=== PATIENT | female | born 1965 | race Caucasian/White ===

== ENCOUNTER → 2018-04-14 12:26 | Outpatient (CLI) | payer MEDICARE, OTHER, SELFPAY ==
--- NOTE | 2018-04-14 | DI.MG.S_ITS ---
BILATERAL DIGITAL SCREENING MAMMOGRAM 3D/2D WITH CAD: 04/14/2018 CLINICAL: Routine screening. Comparison is made to exams dated: 12/10/2016 mammogram, 11/13/2014 mammogram, and 05/13/2009 mammogram - [facility]. The tissue of both breasts is heterogeneously dense. This may lower the sensitivity of mammography. Current study was also evaluated with a Computer Aided Detection (CAD) system. No significant masses, calcifications, or other findings are seen in either breast. There has been no significant interval change. IMPRESSION: NEGATIVE There is no mammographic evidence of malignancy. A 1 year screening mammogram is recommended. This exam was interpreted at Station ID: [id number]. NOTE: For mammograms, a report in lay terms will be sent to the patient. Approximately 15% of breast malignancies will not be visualized mammographically. In the management of a palpable breast mass, a negative mammogram must not discourage biopsy of a clinically suspicious lesion. Electronically Signed By: Winnie jaeger/joseph:04/14/2018 12:56:11 letter sent: Normal Exam ACR BI-RADS Category 1: Negative [id number]
== END ==
PROVIDERS: PCP Physician Assistant; Visit Provider Physician Assistant
DX: Z12.31 Encounter for screening mammogram for malignant neoplasm of breast (principal)
CPT/HCPCS: 77063; 77067

== ENCOUNTER → 2018-04-19 11:12 | Outpatient (CLI) | payer MEDICARE, OTHER, SELFPAY ==
[2018-04-19 12:16] LABS: Hematocrit 41.6 % (36-46); Hemoglobin 14.2 g/dL (12.0-16.0); Mean Corpuscular HGB Conc 34.1 % (30-36); Platelet Count 317 X10^3/uL (150-400); Red Blood Cell Count 4.72 X10^6/uL (4.0-5.2); Red Cell Distribution Width 14.3 % (11.6-14.8); White Blood Cell Count 5.3 X10^3/uL (4.5-11.0)
[2018-04-19 12:34] LABS: Morphology Comment Normal Morphology; Neutrophils Absolute Manual 2597 /uL (3000-5900); Total Cells Counted 100
[2018-04-19 12:55] LABS: C-Reactive Protein Quant 1.7 mg/dL (<1.0); Rheumatoid Factor < 8.6 IU/mL (<12.0); Uric Acid 6.7 mg/dL (2.5-6.2)
[2018-04-21 14:17] LABS: Lyme SCREEN w/ Reflex IgG IgM < 0.90 (< 0.90)
[2018-04-21 14:22] LABS: Homocysteine 10.5 umol/L (< 10.4)
[2018-04-21 14:54] LABS: HLA B27 NEGATIVE (Negative)
[2018-04-21 22:51] LABS: ANA Screen NEGATIVE (Negative); DNA Antibody Crithidia IFA NEGATIVE (Negative); Rheumatoid Factor <14 IU/mL; Sjogren Antiboday SS-A <1.0 NEG AI (<1.0 NEGATIVE); Sjogren Antiboday SS-B <1.0 NEG AI (<1.0 NEGATIVE); Sm Antibody <1.0 NEG AI (<1.0 NEGATIVE); Sm/RNP Antibody <1.0 NEG AI (<1.0 NEGATIVE)
== END ==
PROVIDERS: PCP Physician Assistant; Visit Provider Physician Assistant
DX: M19.90 Unspecified osteoarthritis, unspecified site (principal)
CPT/HCPCS: 36415; 83090; 84550; 85025; 86038; 86140; 86430; 86618; 86812

== ENCOUNTER → 2018-05-10 09:07 | Outpatient (CLI) | payer MEDICARE, OTHER, SELFPAY ==
--- NOTE | 2018-05-10 09:21 | DI.RAD.S_ITS ---
PROCEDURE: XR ELBOW LT MIN 3V INDICATIONS: elbow pain no trauma TECHNIQUE: 3 views of the elbow were acquired. COMPARISON: None. FINDINGS: Bones: No fractures or dislocations. No suspicious bony lesions. Soft tissues: No elbow joint effusion. No suspicious soft tissue calcifications. IMPRESSION: Normal elbow Dictated by: Ricky Carrillo M.D. on 05/10/2018 at 9:54 Approved by: Ricky Carrillo M.D. on 05/10/2018 at 9:54
--- NOTE | 2018-05-10 09:21 | DI.RAD.S_ITS ---
PROCEDURE: XR SHOULDER RT MIN 2V INDICATIONS: shoulder pain no trauma TECHNIQUE: 3 views of the shoulder were acquired. COMPARISON: None. FINDINGS: Bones: No fractures or dislocations. No suspicious bony lesions. Visualized ribs appear intact. Degenerative a.c. joint disease with small inferior bone spur distal clavicle. Glenohumeral joint appears maintained. Soft tissues: No suspicious soft tissue calcifications. IMPRESSION: 1. No acute bony abnormality. 2. Degenerative acromioclavicular joint disease. Dictated by: Ricky Carrillo M.D. on 05/10/2018 at 9:53 Approved by: Ricky Carrillo M.D. on 05/10/2018 at 9:54
--- NOTE | 2018-05-10 09:21 | DI.RAD.S_ITS ---
PROCEDURE: XR FINGER RT MIN 2V INDICATIONS: finger pain no trauma TECHNIQUE: AP hand, 2 views of the middle finger(s) acquired. COMPARISON: None. FINDINGS: Bones: No fractures or dislocations. No suspicious bony lesions. Soft tissues: No suspicious soft tissue calcifications. IMPRESSION: Normal finger Dictated by: Ricky Carrillo M.D. on 05/10/2018 at 9:52 Approved by: Ricky Carrillo M.D. on 05/10/2018 at 9:53
[2018-05-10 09:53] LABS: Erythrocyte Sedimentation Rate 20 MM/HR (0-20)
[2018-05-10 10:09] LABS: Rheumatoid Factor < 8.6 IU/mL (<12.0)
== END ==
PROVIDERS: PCP Family Medicine; Visit Provider Family Medicine
DX: M25.50 Pain in unspecified joint (principal); M25.522 Pain in left elbow; M79.646 Pain in unspecified finger(s); M25.511 Pain in right shoulder
CPT/HCPCS: 36415; 73030; 73080; 73140; 85651; 86430

== ENCOUNTER → 2019-10-03 07:40 | Outpatient (CLI) | payer MEDICARE, OTHER, SELFPAY ==
[2019-10-03 09:31] LABS: Cholesterol 208 mg/dL (140-199); HDL Cholesterol 44 mg/dL (40-60); LDL Cholesterol Calculated 150 mg/dL (<100); Triglycerides 69 mg/dL (35-150)
== END ==
PROVIDERS: Visit Provider Family Medicine
DX: Z13.220 Encounter for screening for lipoid disorders (principal)
CPT/HCPCS: 36415; 80061

== ENCOUNTER → 2019-11-26 11:42 | Outpatient (CLI) | payer MEDICARE, OTHER, SELFPAY ==
--- NOTE | 2019-11-26 | DI.MG.S_ITS ---
BILATERAL DIGITAL SCREENING MAMMOGRAM 3D/2D WITH CAD: 11/26/2019 CLINICAL: Routine screening. Comparison is made to exams dated: 04/14/2018 mammogram - [facility], 12/10/2016 mammogram, and 11/13/2014 mammogram - [facility]. The tissue of both breasts is heterogeneously dense. This may lower the sensitivity of mammography. Current study was also evaluated with a Computer Aided Detection (CAD) system. No significant masses, calcifications, or other findings are seen in either breast. There has been no significant interval change. IMPRESSION: NEGATIVE There is no mammographic evidence of malignancy. A 1 year screening mammogram is recommended. This exam was interpreted at Station ID: [id number]. NOTE: For mammograms, a report in lay terms will be sent to the patient. Approximately 15% of breast malignancies will not be visualized mammographically. In the management of a palpable breast mass, a negative mammogram must not discourage biopsy of a clinically suspicious lesion. Electronically Signed By: Winnie jaeger/joseph:11/26/2019 15:02:37 letter sent: Normal Exam ACR BI-RADS Category 1: Negative [id number]
== END ==
PROVIDERS: Visit Provider Family Medicine
DX: Z12.31 Encounter for screening mammogram for malignant neoplasm of breast (principal)
CPT/HCPCS: 77063; 77067

== ENCOUNTER 2020-01-09 06:34 | Day surgery (SDC) | payer MEDICARE, OTHER, SELFPAY ==
[2020-01-09] MEDS: SODIUM CHLORIDE 0.9% 1,000 ML 84 ML IV (06:55)
[2020-01-09 07:08] VITALS: BP 109/67; PULSE 59; RESP 17; TEMP 36.2; O2SAT 97; BMI 48.2
--- NOTE | 2020-01-09 07:43 | P.HP_ITS ---
History of Present Illness History of Present Illness Date Patient Seen: 01/09/20 Time Patient Seen: 07:43 Chief complaint: [id number] Narrative: This is a 54-year-old woman who has a complicated surgical history including , tubal ligation, oophorectomy with injury to the colon, requiring subsequent laparotomy, colon resection, colostomy, colostomy takedown, ventral hernia repair times two. She has also had a cholecystectomy. She has never had a bowel obstruction. She denies any hematochezia or melena. She has a family history of a mother who had anal cancer which the patient says was a type of skin cancer. Sounds like she was treated with lu protocol. She says that she had a very violent reaction to fentanyl including severe vomiting which resulted in tearing her sutures on a previous abdominal surgery. She states that she has significant PTSD with anxiety and panic attacks related to medical evaluation and procedures. She is concerned about having a colonoscopy, although she understands that it is important for cancer screening purposes. Interval history: The patient denies any significant changes since her visit to see me in the office on 11/27/19 to discuss her PTSD and concerns about the procedure. ROS: Thirteen system review is otherwise negative other than as mentioned below and in HPI. PE: GENERAL: Well groomed and cooperative. Tearful. Morbidly obese. Appears stated age. Answers questions promptly and appropriately. Vital signs noted. HENT: Normocephalic, atraumatic. Hearing intact. Oral mucosa is pink and moist. EYES: Conjunctiva pink, sclera white, no periorbital swelling. CARDIOVASCULAR: Regular rate. No pedal edema. RESPIRATORY: Non-tachypneic, breathing comfortably on room air. GASTROINTESTINAL: Abdomen soft and non-distended; nontender, well-healed surgical incisions consistent with a laparotomy and left side colostomy. GENITALURINARY: No flank tenderness. MUSCULOSKELETAL: Equal tone and mass bilaterally. SKIN: Warm, dry, soft, appropriate color for ethnicity. No other lesions, rashes, or wounds. NEURO: Alert and Oriented X 3. No gross sensory deficits, or cognitive issues. PSYCH: Anxious, tearful affect and depressed mood. Patient History Medical History Anxiety (Chronic 2010) Chronic pain of left elbow (Chronic) Chronic right shoulder pain (Chronic) Depression (Chronic 2010) Essential hypertension (Chronic) Fibromyalgia (Chronic ~2013) Finger pain, right (Chronic) Generalized headaches (Chronic 2010) Genital warts (Resolved 1989) Hypersomnia (Chronic) Hypertension (Chronic 2010) Obstructive sleep apnea of adult (Chronic) Ovarian cyst (Resolved 1999) PTSD (post-traumatic stress disorder) (Chronic 2010) Snoring (Inactive) Surgical History History of intestinal surgery (Resolved Unknown) S/P hysterectomy (Resolved Unknown) Family & Social History Family History Father No problems noted. Mother Cancer Social History: household members spouse lives independently Yes caregiver/support person No Tobacco & Substance use: Smoking Status Former smoker alcohol intake current alcohol intake frequency 0-2 drinks per day Substance Use Type does not use Meds Home Medications and Allergies Home Medications Medication Instructions Recorded Confirmed Type atenolol 50 mg tablet 50 mg PO QDAY #90 tab 08/28/18 01/09/20 Rx hydrochlorothiazide 25 mg tablet 25 mg PO QDAY #90 tab 08/28/18 01/09/20 Rx Respironics Dreamstation CPAP #1 ea 04/05/19 12/11/19 History cholecalciferol (vitamin D3) 125 5,000 unit PO DAILY 07/31/19 01/09/20 History mcg (5,000 unit) capsule vortioxetine 20 mg tablet 20 mg PO DAILY #90 tab 11/05/19 01/09/20 Rx estradiol 0.5 mg tablet 2 mg PO DAILY tab 12/11/19 01/09/20 History s-adenosylmethionine 400 mg tablet 400 mg PO DAILY 12/11/19 01/09/20 History lorazepam 1 mg tablet 1 mg PO ONCE PRN #5 tab 01/07/20 01/09/20 Rx Allergies Allergy/AdvReac Type Severity Reaction Status Date / Time fentanyl [FENTANYL] Allergy Unknown Verified 01/09/20 06:56 Exam Vital Signs (past 8 hours): - 01/09/20 07:08 Temperature 97.2 F L Pulse Rate 59 L Respiratory Rate 17 Blood Pressure 109/67 Pulse Oximetry 97 Oxygen Delivery Method Room Air Assessment & Plan Assessment and plan (1) Fear of other medical care: Current visit: No Status: Acute (2) PTSD (post-traumatic stress disorder): Current visit: No Status: Chronic (3) Colon cancer screening: Current visit: No Status: Acute (4) History of postoperative complication of surgical procedure: Current visit: No Status: Acute (5) Post-traumatic stress disorder, chronic: Current visit: No Status: Acute Assessment & Plan narrative: In the office on 11/27/2019, I had a long discussion with the patient regarding her medical history and surgical history. To summarize, she is very fearful of having another complication. She had a drawn out and difficult course after her oophorectomy which resulted in injury to her colon, and multiple operations and complications. She is doing fairly well now, although she has significant anxiety related to any medical procedures. She would like to have her colonoscopy but she is fearful about what may happen. She has told me that she was fearful of being given Fentanyl as she had a very violent reaction to it multiple times in the past and she is afraid that people don't listen to her when she tells them about this reaction. She said that she had significant vomiting which resulted in tearing her sutures and complications after her prior surgeries. This morning we had a brief discussion reviewing the reasons for her colonoscopy, her anxiety related to the procedure, and her medical history. She did not want to have another discussion of the risks and benefits of the procedure. She is aware from our prior discussion of the potential need to abort the procedure if it cannot be completed safely, the alternative of CT colonography or stool studies. Risks and benefits of this procedure were discussed in great detail, and the patient would like to proceed. We did discuss having her procedure done within anesthesiologist present and under pr opofol rather than fentanyl and midazolam. In my experience patients with significant PTSD and anxiety require a significant amount of midazolam. Without being able to use fentanyl I don't know that I could keep her adequately sedated during the procedure to complete the procedure safely. Plan: Schedule for screening colonoscopy with anesthesiologist management for sedation Time Spent With Patient Time with patient: 25 - 35 minutes Quality VTE Deep Vein Thrombosis/Pulmonary Embolism Present on Admission: No
--- NOTE | 2020-01-09 08:37 | PM.OP.ENDO ---
Operative Date/Time/Diagnoses Date of procedure: 01/09/20 Time of procedure: 08:37 Pre-op diagnosis: high risk family history for colon cancer, h/o PTSD Post-op diagnosis: other (Diverticulosis) Procedure & Clinicians Study performed: Screening colonoscopy, high risk family history Same procedure as scheduled: Yes Indications: Patient with high risk family history for colorectal cancer Surgeon: Renetta Agarwal Procedure Notes SCOAP/Timeout: Performed Procedure in detail: The patient was brought to the room and placed in left lateral decubitus position with all bony prominences padded. A time-out was performed and then the patient was given procedural sedation by the anesthesiologist. Vitals were monitored by the anesthesiologist throughout the procedure and remained stable. Once adequately sedated the procedure was begun. A rectal exam was performed revealing a small external hemorrhoid remnant tag. The colonoscope was then introduced to the rectum and advanced to the cecum in the usual fashion. The cecum was identified by the appendiceal orifice, the mucosal tri-fold, and the ileocecal valve. The scope was then retracted while rotating side to side and examining each mucosal fold. There was moderate diverticulosis throughout the colon. No polyps or masses were seen. The anastomosis from the patient's prior colon resection appeared healthy, without stenosis. At the conclusion of the procedure retroflexion was performed and small grade 1-2 internal hemorrhoids without stigmata of bleeding were seen. The scope was then withdrawn from the rectum the procedure was concluded. The patient tolerated the procedure well and was transferred to the PACU in stable condition. Scope withdrawal time: 8 Findings: diverticulosis Specimen(s): none sent Complications: none Impression: Extensive diverticulosis, no polyps or masses Post-procedure Recommendations: Colonscopy in 5 years (For high risk family history) Follow up: as needed Disposition: PACU
[2020-01-09 08:41] VITALS: BP 129/85; PULSE 60; RESP 15; TEMP 36.3; O2SAT 96
[2020-01-09 08:46] VITALS: BP 114/70; PULSE 60; RESP 14; O2SAT 95
--- NOTE | 2020-01-09 08:49 | SUR.PHASEI ---
Eye, red. Pt now c/o eye discomfort 01/28. Dr. Menendez assessed eye, pt rated discomfort 01/28. Medication ordered, eye patch with tape sent home with pt.
[2020-01-09 08:56] VITALS: BP 126/77; PULSE 60; RESP 13; TEMP 36.4; O2SAT 97
[2020-01-09] MEDS: PROPARACAINE 0.5% OPHTH SOL 1 DROPS EYE-RIGHT (09:00)
[2020-01-09 09:09] VITALS: BP 114/66; PULSE 56; RESP 12; TEMP 36.6; O2SAT 95
[2020-01-09 09:29] VITALS: BP 97/64; PULSE 53; RESP 16; TEMP 36.3; O2SAT 96
== END 2020-01-09 09:34 | disposition home or self-care (01) ==
PROVIDERS: PCP Family Medicine; Referring Provider Surgery; Visit Provider Surgery
PROC: 0DJD8ZZ Inspection of Lower Intestinal Tract, Via Natural or Artificial Opening Endoscopic (ICD-10-PCS; CPT 45378; principal; 2020-01-09 07:45)
DX: Z12.11 Encounter for screening for malignant neoplasm of colon (principal); Z80.0 Family history of malignant neoplasm of digestive organs; K57.30 Diverticulosis of large intestine without perforation or abscess without bleeding; K64.0 First degree hemorrhoids
CPT/HCPCS: G0105; J1170; J2250; J2704

== ENCOUNTER → 2020-07-14 08:14 | Outpatient (CLI) | payer MEDICARE, OTHER, SELFPAY ==
--- NOTE | 2020-07-14 | DI.RAD.S_ITS ---
PROCEDURE: XR CHEST 2V INDICATIONS: DYSPNEA ON EXERTION TECHNIQUE: 2 views of the chest were acquired. COMPARISON: [facility], , CHEST 2 VIEW, 12/28/2017, 8:45. FINDINGS: Surgical changes and devices: None. Lungs and pleura: Lungs are abnormal with a chronic interstitial prominence but the previously present right lower lobe pneumonia has resolved. No pleural effusions or pneumothorax. Mediastinum: Mediastinal contours are normal. Heart size is normal. Bones and chest wall: No suspicious bony abnormalities. Soft tissues appear unremarkable. IMPRESSION: Resolution of right lower lobe pneumonia, prominence of the interstitium bilaterally remains, potentially a manifestation of prior smoking. Dictated by: Jomar Perkins M.D. on 07/14/2020 at 9:15 Approved by: Jomar Perkins M.D. on 07/14/2020 at 9:16
[2020-07-14 10:21] LABS: Add Manual Diff / Slide Review NO; Basophils Absolute Auto 0 /uL (0-100); Basophils Percent Auto 0.5 % (0-2); Eosinophils Absolute Auto 100 /uL (0-450); Hematocrit 37.4 % (36-46); Hemoglobin 12.6 g/dL (12.0-16.0); Lymphocytes Absolute Auto 1400 /uL (1100-4500); Lymphocytes Percent Auto 23.4 % (25-40); Mean Corpuscular HGB Conc 33.6 % (30-36); Mean Corpuscular Hemoglobin 29.8 PG (26-34); Mean Corpuscular Volume 88.6 fL (80-100); Monocytes Absolute Auto 300 /uL (0-900); Monocytes Percent Auto 5.8 % (3-14); Neutrophils Absolute Auto 4000 /uL (1500-7000); Neutrophils Percent Auto 68.3 % (50-75); Platelet Count 241 X10^3/uL (150-400); Red Blood Cell Count 4.22 X10^6/uL (4.0-5.2); Red Cell Distribution Width 14.2 % (11.6-14.8); White Blood Cell Count 5.8 X10^3/uL (4.5-11.0)
[2020-07-14 10:42] LABS: Alanine Aminotransferase 21 IU/L (<35); Albumin Globulin Ratio 1.3 (1.0-2.8); Alkaline Phosphatase 62 U/L (38-126); Aspartate Aminotransferase 24 IU/L (14-36); BUN Creatinine Ratio 24.1 (6-22); Bilirubin Total 0.4 mg/dL (0.2-1.3); Blood Urea Nitrogen 19 mg/dL (7-17); Calcium 9.2 mg/dL (8.4-10.2); Carbon Dioxide 29 mmol/L (22-32); Chloride 102 mmol/L (98-107); Estimated Glomerular Filt Rate > 60.0 mL/min (>60); Globulin 3.1 g/dL (1.7-4.1); Glucose 100 mg/dL (70-100); HEMOLYSIS < 15 (0-50); Potassium 4.5 mmol/L (3.4-5.1); Sodium 138 mmol/L (137-145); Total Protein 7.1 g/dL (6.3-8.2); Uric Acid 6.3 mg/dL (2.5-6.2)
[2020-07-14 11:15] LABS: Thyroid Stimulating Hormone 1.22 uIU/mL (0.47-4.68)
== END ==
LOC: LAB 08:24 → RAD 10:23
PROVIDERS: PCP Family Medicine; Referring Provider Family Medicine; Visit Provider Family Medicine
DX: R00.2 Palpitations (principal); R63.5 Abnormal weight gain; E79.0 Hyperuricemia without signs of inflammatory arthritis and tophaceous disease; R06.09 Other forms of dyspnea
CPT/HCPCS: 36415; 71046; 80053; 84443; 84550; 85025

== ENCOUNTER → 2021-02-05 13:27 | Outpatient (CLI) | payer MEDICARE, OTHER, SELFPAY ==
[2021-02-05 15:49] LABS: Prolactin 15.9 ng/mL (3.0-18.6)
[2021-02-05 16:02] LABS: Cortisol Random 6.17 ug/dL
[2021-02-05 16:04] LABS: Free T4, Direct Thyroxine 1.15 ng/dL (0.78-2.19); Triiodothryronine T3 Uptake 29.8 % (23.5-40.5)
[2021-02-05 16:17] LABS: Thyroid Stimulating Hormone 1.16 uIU/mL (0.47-4.68)
== END ==
PROVIDERS: PCP Family Medicine; Referring Provider Surgery; Visit Provider Surgery
DX: E66.8 Other obesity (principal); R63.5 Abnormal weight gain; Z68.43 Body mass index [BMI] 50.0-59.9, adult
CPT/HCPCS: 36415; 82533; 84146; 84436; 84439; 84443; 84479

== ENCOUNTER → 2021-12-12 09:02 | Outpatient (CLI) | payer MEDICARE, OTHER, SELFPAY ==
[2021-12-12 09:57] LABS: Add Manual Diff / Slide Review NO; Basophils Absolute Auto 0 /uL (0-100); Basophils Percent Auto 0.4 % (0-2); Eosinophils Absolute Auto 100 /uL (0-450); Eosinophils Percent Auto 1.9 % (2-4); Hematocrit 38.9 % (36-46); Hemoglobin 13.2 g/dL (12.0-16.0); Lymphocytes Absolute Auto 1600 /uL (1100-4500); Lymphocytes Percent Auto 31.6 % (25-40); Mean Corpuscular Hemoglobin 30.1 PG (26-34); Mean Corpuscular Volume 88.4 fL (80-100); Monocytes Absolute Auto 300 /uL (0-900); Monocytes Percent Auto 5.8 % (3-14); Neutrophils Absolute Auto 3000 /uL (1500-7000); Neutrophils Percent Auto 60.3 % (50-75); Platelet Count 256 X10^3/uL (150-400); Red Cell Distribution Width 13.7 % (11.6-14.8); White Blood Cell Count 4.9 X10^3/uL (4.5-11.0)
[2021-12-12 10:38] LABS: Alanine Aminotransferase 17 IU/L (<35); Albumin 3.8 g/dL (3.5-5.0); Albumin Globulin Ratio 1.3 (1.0-2.8); Alkaline Phosphatase 60 U/L (38-126); Aspartate Aminotransferase 23 IU/L (14-36); BUN Creatinine Ratio 21.7 (6-22); Bilirubin Total 0.4 mg/dL (0.2-1.3); Blood Urea Nitrogen 15 mg/dL (7-17); Calcium 9.2 mg/dL (8.4-10.2); Carbon Dioxide 32 mmol/L (22-32); Chloride 104 mmol/L (98-107); Cholesterol 174 mg/dL (140-199); Estimated Glomerular Filt Rate > 60.0 mL/min (>60); Glucose 91 mg/dL (70-100); HDL Cholesterol 54 mg/dL (40-60); HEMOLYSIS < 15 (0-50); LDL Cholesterol Calculated 106 mg/dL (<100); Potassium 4.5 mmol/L (3.4-5.1); Sodium 140 mmol/L (137-145); Total Protein 6.8 g/dL (6.3-8.2); Triglycerides 68 mg/dL (35-150)
[2021-12-12 11:02] LABS: Vitamin D 25 Hydroxy (D3) 41.2 ng/mL (30.0-100.0)
[2021-12-12 11:43] LABS: Folate 13.9 ng/mL (2.76-20.0); Vitamin B12 441 pg/mL (239-931)
[2021-12-13 22:08] LABS: Zinc 72 ug/dL (44-115)
[2021-12-14 14:08] LABS: Deamidated Gliadin Ab IgA 4 units (0-19); Deamidated Gliadin Ab IgG 3 units (0-19); Immunoglobulin A,Qn 274 mg/dL (87-352); t-Transglutaminase IgA <2 U/mL (0-3)
[2021-12-16 11:38] LABS: Alpha-Tocopherol 12.2 mg/L (7.0-25.1); Gamma-Tocopherol 1.2 mg/L (0.5-5.5)
[2021-12-16 13:23] LABS: Vitamin B1 160.7 nmol/L (66.5-200.0)
[2021-12-17 11:42] LABS: Vitamin A 45.4 ug/dL (20.1-62.0)
== END ==
PROVIDERS: PCP Family Medicine; Referring Provider Family Medicine; Visit Provider Family Medicine
DX: R19.7 Diarrhea, unspecified (principal); R14.0 Abdominal distension (gaseous); Z13.220 Encounter for screening for lipoid disorders; I10 Essential (primary) hypertension; E55.9 Vitamin D deficiency, unspecified; Z98.84 Bariatric surgery status
CPT/HCPCS: 36415; 80053; 80061; 82306; 82607; 82746; 82784; 83516; 84425; 84446; 84590; 84597; 84630; 85025

== ENCOUNTER 2024-08-09 11:57 | Day surgery (SDC) | payer MEDICARE, OTHER, SELFPAY ==
[2024-07-31 12:30] VITALS: BMI 43.7
[2024-08-09] VITALS (12 sets, daily range): BP systolic 108–155; BP diastolic 56–74; PULSE 50–76; RESP 15–20; TEMP 36.1–36.8; O2SAT 90–99; BMI 43.2
--- NOTE | 2024-08-09 | DI.RAD.S_ITS ---
PROCEDURE: XR PELVIS 1-2V INDICATIONS: INTRA OP TECHNIQUE: Intra-operative view of the pelvis and hip acquired. COMPARISON: [facility], CR, XR PELVIS WITH LATERAL HIP LEFT, 07/06/2024, 11:55. FINDINGS: Bones: Intraoperative devices prior to placement of arthroplasty prostheses are in expected positions. No fractures or suspicious bony lesions. Soft tissues: Expected postsurgical edema and emphysema. IMPRESSION: Intraoperative appearance of the left hip total arthroplasty in expected position. Dictated by: Kenyon Beal M.D. on 08/09/2024 at 17:29 Approved by: Kenyon Beal M.D. on 08/09/2024 at 17:30
--- NOTE | 2024-08-09 06:00 | DI.RAD.S_ITS ---
PROCEDURE: XR HIP W PEL IF DONE LT 2V INDICATIONS: JUAN TECHNIQUE: AP pelvis and lateral view of the hip acquired. COMPARISON: None. FINDINGS: Bones: Patient is status post left hip arthroplasty, with hardware components in expected positions. The hip joint appears congruent. The visualized bony structures appear intact. Soft tissues: Overlying postoperative changes are noted. No suspicious soft tissue densities. IMPRESSION: Expected post-operative appearance of a hip arthroplasty. Approved by: Kelsie Guadarrama M.D.,Ph.D. on 08/09/2024 at 18:35
[2024-08-09] MEDS: CELECOXIB 200 MG CAPSULE PO (13:05)
[2024-08-09] MEDS: ACETAMINOPHEN 325 MG TABLET 975 MG PO (13:05)
[2024-08-09] MEDS: LACTATED RINGERS 1,000 ML 42 ML IV ×2 (13:08→16:08)
[2024-08-09] MEDS: VANCOMYCIN 1,500 MG/300 ML PIGGYBACK 200 MG IV (13:46)
--- NOTE | 2024-08-09 14:15 | PM.PREOP ---
Pre-operative Note Interval Note History & Physical reviewed/Exam performed by Physician: Yes Changes to H&P: No
[2024-08-09] MEDS: diphenhydrAMINE 50 MG/ML VIAL 12.5 MG IV (14:27)
--- NOTE | 2024-08-09 14:29 | SUR.PREOP ---
Pt with new rash and redness from right elbow to shoulder. Pt Vanco started 10-15 min prior. Initially aching at the forearm with no redness and IV infusing well, flushed and no sign of infiltration. Vanco re-start and then redness at elbow developed. See order from Samra MILAN who was informed of the above and ordered IV Benadryl. Pt to OR after this with Beverly AVILEZ. SBAR report given. Vanco not running at this time.
--- NOTE | 2024-08-09 14:55 | P.OP_ITS ---
Operative Date/Time/Diagnoses Date of procedure: 08/09/24 Time of procedure: 14:55 Pre-op diagnosis: Left hip severe OA Post-op diagnosis: same Procedure & Clinicians Procedure: Left total hip arthroplasty posterior approach Same procedure as scheduled: Yes Indications: The patient has had progressively worsening left hip pain with radiographic changes consistent with arthritis. Non-operative management has failed and the patient has requested total hip replacement. The risks, benefits and alternatives to surgery were discussed with the patient prior to proceeding. Risks discussed included, but were not limited to, failure to relieve pain, leg length discrepancy, dislocation, stiffness, infection, nerve damage, deep venous thrombosis, pulmonary embolism, stroke, coma, heart attack, permanent paralysis and , as well as the potential need for eventual revision of the prosthetic. Surgeon: Renita Monsivais [employer] Counter Clerk: Hudson Webb Anesthesia Type: General and Spinal Operative Notes Findings: Severe left hip osteoarthritis, significant obesity Closure Type: primary Specimen(s): none sent Prosthetic devices, grafts, tissues, transplants, or devices: Monsivais and nephew polar stem size 1 with collar, R3 52 mm cup, neutral poly liner,one 6.5 mm screw, 36 x +0 Oxinium femoral head Estimated Blood Loss (mL): 250 Blood products transfused: none Procedure in detail: The patient was seen in the pre-operative area, where the patient identified the left hip as the operative site and this was marked with my initials. The patient received pre-operative antibiotics and was taken to the operating room and placed on the operative table in the right lateral decubitus position after satisfactory anesthesia. A multimedia services manager out was performed. The left leg was prepared from the ankle to the iliac crest with ChloroPrep in the usual fashion and draped through sterile drapes. A PA was used during the procedure and was essential for intraoperative retraction and safe implantation of the components. She had a very high BMI despite extensive work on weight loss. Additional time and retraction was required in order to safely implant the components. The hip was approached through an approximately 20 cm incision centered over the greater trochanter and curving gently posteriorly as it went proximally. This was carried sharply to the fascia randy, which was divided and retracted with a self retaining retractor. The trochanteric bursa was excised with care being taken to avoid the sciatic nerve, which was identified and protected throughout the case. The short external rotators were incised and the capsulomuscular flap was raised and tagged for later repair. The hip was dislocated, and a femoral neck osteotomy performed approximately 15 mm above the lesser trochanter. Retractors were placed around the femur. The canal was opened with a box cutting osteotome, followed by a T handled reamer and a lateralizing reamer. The chili pepper broach was then used, followed by sequential broaching until there was good stability of the broach in the femur. Retractors were placed to expose the acetabulum. The labrum and central soft tissues were removed. Reaming was performed initially going up in 2 mm increments, then 1 mm increments until good bite was obtained with an odd sized reamer. The cup 1 mm larger than the last reamer was then inserted using the appropriate anteversion guides. It was further stabilized with a single screw. A trial neutral liner was placed. The broach was placed in the canal. A trial head and neck were then placed and the hip relocated and checked for leg length and stability. An intraoperative film confirmed the component position and no evidence of fracture. The patient was stable in the position of sleep, of squatting, and could be put through a range of motion with 45 degrees internal rotation without dislocation. At 90 degrees flexion, internal rotation to 70? was possible before dislocation. This was felt to be satisfactory and the appropriate components were opened, and the trials were removed. The acetabular liner was impacted into position. The final stem was then impacted into the prepared femoral canal. A brief Betadine soak was performed while trialing with head options. The hip was meticulously irrigated with normal saline. Finally the femoral head was impacted onto the stem. The acetabulum was cleared of all material and the hip relocated one final time. The capsulomuscular flap was then repaired to the greater trochanter though an awl hole using the tag sutures. The short external rotators were repaired with a nonabsorbable suture. The fascia randy was closed with Vicryl. The subcutaneous layer was closed with barbed sutures and skin glory. A neel dressing was applied and the patient was taken to recovery having tolerated the procedure well. Complications: none Post-operative Condition: stable Disposition: Acute Care Plan for aftercare: The patient will be maintained on a standard total hip replacement protocol with weight bearing as tolerated and posterior hip precautions. The patient will receive Aspirin and sequential compression devices for DVT prophylaxis. The patient will be discharged home when safe for the home environment.
[2024-08-09] MEDS: CEFAZOLIN 2 GM/100 ML PREMIX 100 ML IV (15:10)
[2024-08-09] MEDS: TRANEXAMIC ACID 1,000 MG VIAL 1000 MG INJ ×2 (15:20→17:03)
--- NOTE | 2024-08-09 15:26 | SUR.OPER ---
Lateral on padded OR bed. Gel axillary roll. Arms secured on padded armboard with pillow supporting top arm. Padded hip positioner braces x4 - anterior and posterior chest and pelvis. Additional gel pad used anterior pelvis. Gel pad under bottom leg from knee to foot and secured with tape over sheet.
[2024-08-09] MEDS: BUPIVACAINE LIPOSOME 266 MG/20 ML VIAL INJ (15:31)
[2024-08-09] MEDS: BUPIVACAINE 0.25% (PF) 60 ML, EPINEPHrine 0.3 MG INJ (15:32)
--- NOTE | 2024-08-09 17:46 | SUR.PHASEI ---
Ancef and oliviao completed in OR by Anesth.
[2024-08-09] MEDS: LACTATED RINGERS 1,000 ML 100 ML IV (18:28)
--- NOTE | 2024-08-09 18:31 | SUR.PHASEI ---
Pt transferred to room 229 in bed with belongings bag and CPAP machine.
[2024-08-09] MEDS: OXYCODONE IR 10 MG TABLET PO ×2 (19:56→23:45)
[2024-08-09] MEDS: PANTOPRAZOLE DR 20 MG TABLET PO (20:48)
[2024-08-09] MEDS: atenoloL 50 MG TABLET PO (20:48)
[2024-08-09] MEDS: DOCUSATE 100 MG CAPSULE PO (20:48)
[2024-08-09] MEDS: ASPIRIN EC 81 MG TABLET PO (20:48)
[2024-08-09] MEDS: PRAZOSIN 1 MG CAPSULE 2 MG PO (20:48)
[2024-08-09] MEDS: GABAPENTIN 400 MG CAPSULE 800 MG PO (20:49)
[2024-08-09] MEDS: HYDROCODONE/ACET 10/325 TABLET 1 TAB PO (20:59)
[2024-08-09 21:22] LABS: MRSA (Nasal) PCR NOT DETECTED (Not Detect)
[2024-08-09] MEDS: CEFAZOLIN VIAL 3 GM in SODIUM CHLORIDE 0.9% 100 ML IV (22:36)
[2024-08-10] MEDS: OXYCODONE IR 10 MG TABLET PO (03:47)
[2024-08-10 04:49] LABS: Hematocrit 31.4 % (36-46); Hemoglobin 10.5 g/dL (12.0-16.0)
[2024-08-10] MEDS: CEFAZOLIN VIAL 3 GM in SODIUM CHLORIDE 0.9% 100 ML IV (06:26)
[2024-08-10] MEDS: SODIUM CHLORIDE 0.9% FLUSH 10 ML IV (08:14)
[2024-08-10] MEDS: GABAPENTIN 400 MG CAPSULE 800 MG PO (08:14)
[2024-08-10] MEDS: HYDROCODONE/ACET 10/325 TABLET 1 TAB PO (08:14)
[2024-08-10] MEDS: allopurinoL 100 MG TABLET PO (08:15)
[2024-08-10] MEDS: ASPIRIN EC 81 MG TABLET PO (08:15)
[2024-08-10] MEDS: PANTOPRAZOLE DR 20 MG TABLET PO (08:15)
[2024-08-10] MEDS: ESCITALOPRAM 10 MG TABLET 20 MG PO (08:15)
[2024-08-10] MEDS: estradioL 1 MG TABLET 2 MG PO (08:15)
[2024-08-10] MEDS: hydroCHLOROthiazide 25 MG TABLET PO (08:15)
[2024-08-10] MEDS: DOCUSATE 100 MG CAPSULE PO (08:15)
[2024-08-10] MEDS: atenoloL 50 MG TABLET PO (08:15)
--- NOTE | 2024-08-10 09:55 | OT.IP.EVAL ---
Current Diagnoses Unilateral primary osteoarthritis, left hip (08/09/24) Surgery Performed Operation Date: 08/09/24 14:15 Actual Procedures p Total Hip Arthroplasty(Left) - Renita Monsivais MD Past Medical History (Last Updated 07/31/24 @ 12:38 by Rosaura Givens, RN) Anxiety (2010) Chronic pain of left elbow Chronic right shoulder pain Depression (2010) Esophageal dilatation Essential hypertension Fibromyalgia (~2013) Finger pain, right Generalized headaches (2010) Genital warts (1989) History of COVID-19 History of intraoperative complication of surgical procedure History of postoperative complication of surgical procedure Hypersomnia Hypertension (2010) Obstructive sleep apnea of adult Osteoarthritis Ovarian cyst (1999) Pancreatitis PTSD (post-traumatic stress disorder) (2010) Recurrent major depression resistant to treatment Snoring Surgical History (Last Updated 07/31/24 @ 13:18 by Rosaura Givens RN) H/O gastric sleeve (~2020) History of History of intestinal surgery (Unknown) History of major abdominal surgery (2010) Hx of cholecystectomy Hx of colonoscopy (01/09/20) Hx of hernia repair Hx of oophorectomy (2010) S/P hysterectomy (Unknown) Status post repair of recurrent ventral hernia Status post repair of ventral hernia Occupational Therapy Inpatient Evaluation/Re-Eval M1 PT/OT-IP Prior Functional Status Start: 08/10/24 09:57 Freq: NEEDED Status: Active Protocol: Document 08/10/24 09:57 [facility] (Rec: 08/10/24 10:10 [facility] [id number]) Medical Review Prior Functional Status Communication I Mobility and Gait Independent without a device but limited in distance. Activities of Daily Living and IADL's Not able to do her socks and shoes and limited with IADL needs due to her pain. Prior Functional Level (Other details) Pt's to stay til Tuesday before going back to work and hopefully a friend to stay on Tuesday and then her daughter to come on Tuesday. Social History Household Members spouse,children Living Arrangements House Number of Floors (Floors) One Floor Number of Stairs To Enter/Railing? 3 steps with right rail. pt has an adjustable bed. Home Environment High Toilet,Tub/Shower,Bidet Home Equipment Four Wheel Walker,Straight Cane,Hand Held Shower,Drying Room Operator M2 OT-IP Current Condition Start: 08/10/24 09:57 Freq: Status: Active Protocol: Document 08/10/24 09:57 [facility] (Rec: 08/10/24 10:10 [facility] [id number]) Occupational Therapy Current Condition Current Condition Evaluation Date 08/10/24 Treatment Diagnosis S/P L JUAN posterior Diagnosis Onset Date 08/09/24 Post Operative Precautions Posterior Hip Precautions No Hip Flexion > 90 degrees,No Hip Internal Rotation,No Hip Adduction M3 OT- IP Subjective and Pain Start: 08/10/24 09:57 Freq: Status: Active Protocol: Document 08/10/24 09:57 [facility] (Rec: 08/10/24 10:10 [facility] [id number]) OT- Subjective Occupational Therapy Visit Type Type Initial Evaluation Visit Start Time 09:00 Visit Stop Time 09:55 Occupational Therapy Visit Comments Patient Comments Pt agreed to get up and shower . Patient/Caregiver Goals To go home. OT Pain Assessment Pain When Pain Assessed At Rest Pain Present Pain Present Pain Reported Location Left Hip Intensity 4 Scale Used Numeric (0 - 10) M4 OT- IP ADL's Start: 08/10/24 09:57 Freq: Status: Active Protocol: Document 08/10/24 09:57 [facility] (Rec: 08/10/24 10:10 [facility] [id number]) OT [id number] General Evaluation Self-Feeding Ability Independent OT ADL-Grooming Comments OT Grooming Comments Not performed. OT ADL-Oral Care Comments Oral Care Comments Not performed. OT ADL-Dressing General Eval Upper Body Dressing Ability Independent Lower Body Dressing Ability Maximum Assistance Areas Needing Assistance Underpants/Brief,Shoes Comments OT Dressing Comments Pt states to just wear slippers that fit well and has a model builder display to assist for her brief. OT ADL-Toileting Comments OT Toileting Comments Educated best to stand and wipe. Pt may benefit from a toilet paper aid, use of pads at night and that her to assist her at night to the bathroom. OT ADL-Bathing Bathing Type Bathing Type Shower General Evaluation Bathing Ability Moderate Assistance Areas Needing Assistance Wash/Dry Upper Body,Wash/Dry Lower Extremities Comments OT Bathing Comments Pt able to stand for part of the shower with use of grab bars for balance. Pt will benefit from a tub transfer bench. M5 OT- IP IADL's Start: 08/10/24 09:57 Freq: Status: Active Protocol: Document 08/10/24 09:57 [facility] (Rec: 08/10/24 10:10 [facility] [id number]) OT-Instrumental Activities of Daily Living Deficits IADL Deficits Identified Deficits Home Safety Awareness Awareness of Need for Assistance at Home Good Awareness Ability to Problem Solve Emergency Able to Problem Solve Situations Home Safety Comments Pt has a very supportive family to assist with her needs. Meal Preparation Meal Preparation Caregiver Provides Assist Boarding Kennel Or Cattery Operator Boarding Kennel Or Cattery Operator Caregiver Provides Assist M6 OT- IP Functional Cognition Start: 08/10/24 09:57 Freq: Status: Active Protocol: Document 08/10/24 09:57 [facility] (Rec: 08/10/24 10:10 [facility] [id number]) Cognitive Factors Limiting Selfcare Function Cognitive Ability Level of Alertness Alert Patient Orientation Name,Age,Birthday,Month,Date, Year,Day of Week,Place, Situation Attention Span Ability Capable of Focused Attention, Capable of Sustained Attention Ability to Follow Commands Able to Follow One Step Commands Safety Awareness Underestimates Need for Assistance Cognitive Comments Cognitive Assessment Comments Pt able to recall her hip precautions after initial education. Pt is a little impulsive and needing cues to slow down. OT- Vision and Hearing OT- Hearing Assessment OT- Hearing Assessment WFL OT- Vision Assessment Visual Acuity Glasses All The Time Visual Attentiveness WFL Occular Pursuits WFL M7 OT- IP Mobility and Balance Start: 08/10/24 09:57 Freq: Status: Active Protocol: Document 08/10/24 09:57 [facility] (Rec: 08/10/24 10:10 [facility] [id number]) OT- Bed Mobility Assessment Supine to Sit Supine to Sit Assist Standby Assistance Sit to Supine Sit to Supine Assist Standby Assistance OT-Transfer Assessment Sit to and From Stand Sit to and from Stand Standby Assistance,Contact Guard Assistance Transfers Transfer Ability Contact Guard Assistance Technique Transfer Destination Bed,Chair,Shower Stall Transfer Technique Stand Step Pivot Devices Transfer Assistive Devices Gait Belt,Front Wheeled Walker ,4 Wheeled Walker Comments Mobility Comments Pt is steadier with the FWW and would benefit from getting one. Able to try the 4ww and needing more assist-CGA to KIERA to step over the threshold. OT- Balance Assessment Sitting Balance and Reactions Static Sitting Balance Ability Good Dynamic Sitting Balance Ability Good Standing Balance and Reactions Static Standing Balance Ability Fair Dynamic Standing Balance Ability Fair M8 OT- IP Objective Assessments Start: 08/10/24 09:57 Freq: Status: Active Protocol: Document 08/10/24 09:57 [facility] (Rec: 08/10/24 10:10 [facility] [id number]) OT Gross Range of Motion Upper Extremity Range of Motion Assessment Within Functional Limits OT Strength Upper Extremity Strength Assessment Within Functional Limits M9 OT- IP Assessment and Plan Start: 08/10/24 09:57 Freq: Status: Active Protocol: Document 08/10/24 09:57 [facility] (Rec: 08/10/24 10:10 [facility] [id number]) OT Summary Assessment and Plan Potential Rehabilitation Potential Excellent Analytic Complexity at Evaluation Low Summary OT Impairments Pain,Balance,Functional Mobility,Dressing,Toileting, Bathing,Toilet Transfers, Shower Transfers Progress Towards Goals Progressing Toward Goals Assessment Summary Pt low complexity and main barriers are pain, steps, and needing cues to slow down. Pt has a very supportive family to be home to assist with her needs. Pt to go home with assist and have outpt PT. Goals Grooming Goal Independent Dressing Goal Independent,Drying Room Operator Toileting Goal Independent,Toilet Paper Aid Bathing Goal Minimal Assistance Toilet Transfer Goal Standby Assistance Shower Transfer Goal Independent Days to Meet Goals 5 Frequency of Treatment Other frequency 5x/week Treatment Plan OT Treatment Plan ADL Training,Functional Mobility,Patient/Family Education,Discharge Planning Discharge Recommendations OT Discharge Recommendations Home with Assistance, Outpatient PT Home Equipment Needs FWW, bed rail, tub bench, toilet paper aid, BSC? Transportation Needs at Discharge Private Vehicle
[2024-08-10] MEDS: OXYCODONE IR 5 MG TABLET PO (10:14)
--- NOTE | 2024-08-10 10:20 | PT.IIE ---
Current Diagnoses Unilateral primary osteoarthritis, left hip (08/09/24) Surgery Performed Operation Date: 08/09/24 14:15 Actual Procedures p Total Hip Arthroplasty(Left) - Renita Monsivais MD Surgical History (Last Updated 07/31/24 @ 13:18 by Rosaura Givens, RN) H/O gastric sleeve (~2020) History of History of intestinal surgery (Unknown) History of major abdominal surgery (2010) Hx of cholecystectomy Hx of colonoscopy (01/09/20) Hx of hernia repair Hx of oophorectomy (2010) S/P hysterectomy (Unknown) Status post repair of recurrent ventral hernia Status post repair of ventral hernia Medical History (Last Updated 07/31/24 @ 12:38 by Rosaura Givens, RAGHAV) Anxiety (2010) Chronic pain of left elbow Chronic right shoulder pain Depression (2010) Esophageal dilatation Essential hypertension Fibromyalgia (~2013) Finger pain, right Generalized headaches (2010) Genital warts (1989) History of COVID-19 History of intraoperative complication of surgical procedure History of postoperative complication of surgical procedure Hypersomnia Hypertension (2010) Obstructive sleep apnea of adult Osteoarthritis Ovarian cyst (1999) Pancreatitis PTSD (post-traumatic stress disorder) (2010) Recurrent major depression resistant to treatment Snoring Physical Therapy Inpatient Evaluation/Re-Eval M1 PT/OT-IP Prior Functional Status Start: 08/10/24 09:57 Freq: NEEDED Status: Discharge Protocol: Document 08/10/24 09:57 [facility] (Rec: 08/10/24 10:10 [facility] [id number]) Medical Review Prior Functional Status Communication I Mobility and Gait Independent without a device but limited in distance. Activities of Daily Living and IADL's Not able to do her socks and shoes and limited with IADL needs due to her pain. Prior Functional Level (Other details) Pt's to stay til Tuesday before going back to work and hopefully a friend to stay on Tuesday and then her daugther on Tuesday. Social History Household Members spouse,children Living Arrangements House Number of Floors (Floors) One Floor Number of Stairs To Enter/Railing? 3 steps with right rail. pt has an adjustable bed. Home Environment High Toilet,Tub/Shower,Bidet Home Equipment Four Wheel Walker,Straight Cane,Hand Held Shower,Dairy Scientist M1 PT/OT-IP Prior Functional Status Start: 08/10/24 12:41 Freq: NEEDED Status: Active Protocol: Document 08/10/24 10:20 [facility] (Rec: 08/10/24 12:59 [facility] [id number]) Medical Review Prior Functional Status Medical History Reviewed Yes Communication able to make needs known Mobility and Gait pt stated that she was independent with all mobiltiies and ambulation without AD Activities of Daily Living and IADL's per OT note: Not able to do her socks and shoes and limited with IADL needs due to her pain. Social History Household Members spouse,children Living Arrangements House Number of Floors (Floors) Two Floors Number of Stairs To Enter/Railing? 3 steps with right rail to enter the house 1 1 step down to laundry room but does not have to go down ther for now Home Environment High Toilet,Tub/Shower,Bidet Home Equipment Four Wheel Walker,Straight Cane,Hand Held Shower,Dairy Scientist, Lift Recliner,Grab Bars In Shower Additional Social History Comment pt has a toilet safety frame and an adjustable bed M2 PT-IP Current Condition Start: 08/10/24 12:41 Freq: NEEDED Status: Active Protocol: Document 08/10/24 10:20 [facility] (Rec: 08/10/24 12:59 [facility] [id number]) Physical Therapy Current Condition Current Condition Evaluation Date 08/10/24 Treatment Diagnosis s/p L JUAN posterior; difficulty in walking Onset Date 08/09/24 M3 PT-IP Subjective Start: 08/10/24 12:41 Freq: NEEDED Status: Active Protocol: Document 08/10/24 10:20 [facility] (Rec: 08/10/24 12:59 [facility] [id number]) Subjective Physical Therapy Visit Type Type Initial Evaluation Visit Start Time 10:20 Visit Stop Time 10:55 Number of ACCOUNTS RECEIVABLE REPRESENTATIVE Visits 0 Physical Therapy Visit Comments Patient Comments agreeable to do PT Therapy Pain Assessment Pain When Pain Assessed At Rest Pain Present Pain Present Pain Reported Location Left Hip Intensity 5 Scale Used Numeric (0 - 10) Pain Behaviors Guarding Pain Management Techniques Apply Cold,Distraction, Modification of Treatment,Re- positioning,Timing of Activity with Medications M4 PT-IP Mobility and Gait Start: 08/10/24 12:41 Freq: NEEDED Status: Active Protocol: Document 08/10/24 10:20 [facility] (Rec: 08/10/24 12:59 [facility] [id number]) PT-Bed Mobility Assessment Supine to Sit Supine to Sit Standby Assistance,Head of Bed Elevated Sit to Supine Sit to Supine Standby Assistance PT-Transfer Assessment Sit to and From Stand Sit to and from Stand Standby Assistance,Contact Guard Assistance,1 Person Assistance,Use of Upper Extremities Equipment Transfer Assistive Device Gait Belt,4 Wheeled Walker Orthotic/Prosthetic Devices or Brace: No Transfers Transfer Destination Bed,Chair Transfer Technique ambulated Transfer Ability Level of Assist Standby Assistance,Contact Guard Assistance,1 Person Assistance,Use of Upper Extremities Comments Mobility Comments pt supine in bed and spouse in room. obtained PLOF and home set up from pt. reviewed posterior hip precautions with pt and spouse. pt completed supine to sit SBA with HOB elevated. pt has an adjustable bed at home. completed sit to stand CGA and ambulated in room using 4WW ~ 20 ft. pt sat on the chair. caregiver training conducted and spouse was able to put safety belt on pt. pt completed sit to stand SBA and ambulated in the hallway using 4WW SBA to cGA ~ 150 ft. PT educated and demonstrated to pt and spouse on how to do stairs. pt completed up/down steps using R rail ascending CGA and cues. spouse was able to assist pt. assistted pt back to her room. pt and spouse without further concerns. Gait Assessment Gait Gait Assistance Required: Standby Assistance,Contact Guard Assist Distance (Feet) 150 Able to Maintain Weight Bearing Status Yes During Gait Assistive Devices Assistive Device Gait Belt,4 Wheeled Walker Orthotic/Prosthetic Devices or Brace: Yes Gait Deviations General Gait Pattern Antalgic,Decreased Stride Length,Decreased Feet Clearance,Step-to Gait Factors Limiting Gait Function Factors Limiting Gait Function Decreased Activity Tolerance, Decreased Strength,Limited Range of Motion,Pain,Poor Balance,Poor Safety Awareness Stair Climbing Assessment Evaluation Level of Assist On Stairs Contact Guard Assistance Devices Stair Climbing Assistive Devices Right Railing Technique/Endurance Stair Climbing Direction Ascend and Descend Stair Climbing Technique Step to Step Number of Steps Climbed 3 Query Text: Stair Climbing Set # Repetitions (reps) 1 PT-Balance Assessment Sitting Balance and Reactions Static Sitting Balance Ability Normal Dynamic Sitting Balance Ability Good Standing Balance and Reactions Static Standing Balance Ability Good Dynamic Standing Balance Ability Fair Device Used 4WW M5 PT-IP Objective Assessments Start: 09/20/24 12:41 Freq: NEEDED Status: Active Protocol: Document 08/10/24 10:20 [facility] (Rec: 08/10/24 12:59 [facility] [id number]) Orientation Orientation/Cognition Level of Alertness Alert Orientation Name,Place,Situation Language Function Ability No Deficits Noted Safety Awareness Understands Safety Issues Memory Description No Deficits Noted Gross Range of Motion Lower Extremity ROM Assessment Within Functional Limits Strength Lower Extremity Strength Assessment Left Impaired Hip 3+/5 Knee 4-/5 Coordination Assessment Gross Coordination Gross Coordination WNL Sensation Assessment Sensation Gross Sensation WNL Muscle Tone Muscle Tone WNL Yes M6 PT-IP Treatment Start: 08/10/24 12:41 Freq: NEEDED Status: Active Protocol: Document 08/10/24 10:20 [facility] (Rec: 08/10/24 12:59 [facility] [id number]) Physical Therapy Treatment Education Education Provided Precautions,Weight Bearing Status,Safety M7 PT-IP Assessment and Plan Start: 08/10/24 12:41 Freq: NEEDED Status: Active Protocol: Document 08/10/24 10:20 [facility] (Rec: 08/10/24 12:59 [facility] [id number]) PT Summary Assessment and Plan Potential Rehabilitation Potential Good Status of Condition at Evaluation Stable Summary Impairments Pain,ROM,Strength,Balance, Coordination,Sensation,Tone, Cognition,Bed Mobility, Transfers,Gait,Activity Tolerance Assessment Summary pt is a 58 y/o F s/p L JUAN posterior approach POD 1. pt has L hip posterior precautions and is WBAT. pt requiring SBA to CGA with mobility and spouse was able to assist pt. pt may go home when medically stable. Goals Bed Mobility Goal Independent Transfer Goal Independent,Four Wheeled Walker Gait Goal Independent,Four Wheel Walker Gait Distance 200 Other Goals up/down 3 steps R rail ascending mod I Days to Meet Goals 5 Frequency of Treatment Frequency Of Treatment Twice a Day Treatment Plan Physical Therapy Treatment Plan Bed Mobility Training,Transfer Training,Gait Training, Therapeutic Exercise,Balance Retraining,Post Op Education, Discharge Planning,Hot or Cold Pack,Neuromuscular Re-ed, Coordination Retraining,Manual Therapy Precautions Posterior Hip Precautions No Hip Flexion > 90 degrees,No Hip Internal Rotation,No Hip Adduction Weight Bearing Status Weight Bearing Status Weight Bear as Tolerated Allowed Weight Bearing Amount (enter % LLE WBAT or #) (%) Recommendations To Nursing Amount of Assist Needed Standby Assistance Discharge Recommendations PT Discharge Recommendations Home with Assistance, Outpatient PT Transportation Needs at Discharge Private Vehicle
--- NOTE | 2024-08-10 11:07 | PC.NURSE ---
Pt discharged per order. IV removed. All belongings sent home with patient and spouse. Discharge instructions reviewed with patient. Pt discharged from unit in wheelchair.
== END 2024-08-10 11:05 | disposition home or self-care (01) ==
LOC: ICU 08-10 07:59 → AC 08-10 12:52 → OR 08-10 12:52
PROVIDERS: PCP Family Medicine; Referring Provider Orthopaedic Surgery; Visit Provider Orthopaedic Surgery
PROC: 0SRB0JZ Replacement of Left Hip Joint with Synthetic Substitute, Open Approach (ICD-10-PCS; CPT 27130; principal; 2024-08-09 14:15)
DX: M16.12 Unilateral primary osteoarthritis, left hip (principal)
CPT/HCPCS: 27130; 36415; 72170; 73502; 85014; 85018; 87797; 97161; 97165; 97530; 97535; C1776; C9290; J0171; J0690; J1170; J1200; J2250; J3010

== ENCOUNTER 2025-01-24 09:28 | Inpatient (IN) | payer MEDICARE, OTHER, SELFPAY ==
[2024-08-09 18:12] VITALS: BMI 43.2
[2025-01-22 13:47] VITALS: BMI 44.1
[2025-01-24] VITALS (10 sets, daily range): BP systolic 112–171; BP diastolic 63–92; PULSE 51–107; RESP 14–20; TEMP 36.2–36.7; O2SAT 93–99; BMI 44.1
--- NOTE | 2025-01-24 | DI.RAD.S_ITS ---
PROCEDURE: XR HIP W PEL IF DONE LT 2V INDICATIONS: POST OP TECHNIQUE: AP pelvis and lateral view of the hip acquired. COMPARISON: [facility] [place], [place], XR HIP W PEL IF DONE LT 2V, 01/24/2025, 17:33. FINDINGS: Bones: Patient is status post left hip arthroplasty revision, with hardware components in expected positions. The hip joint appears congruent. The visualized bony structures appear intact. Soft tissues: Overlying postoperative changes are noted. No suspicious soft tissue densities. IMPRESSION: Expected post-operative appearance of a hip arthroplasty revision. Dictated by: Trevor Ferris M.D. on 01/24/2025 at 22:27 Approved by: Trevor Ferris M.D. on 01/24/2025 at 22:28
--- NOTE | 2025-01-24 06:00 | DI.RAD.S_ITS ---
PROCEDURE: XR HIP W PEL IF DONE LT 2V INDICATIONS: castillo TECHNIQUE: AP pelvis and lateral view of the hip acquired. COMPARISON: [facility], [place], XR HIP W PEL IF DONE LT 2V, 08/09/2024, 17:33. FINDINGS: Bones: Patient is status post left hip arthroplasty revision, with hardware components in expected positions. The hip joint appears congruent. The visualized bony structures appear intact. Soft tissues: Overlying postoperative changes are noted. No suspicious soft tissue densities. IMPRESSION: Expected post-operative appearance of left hip arthroplasty revision. Dictated by: Trevor Ferris M.D. on 01/24/2025 at 21:14 Approved by: Trevor Ferris M.D. on 01/24/2025 at 21:15
--- NOTE | 2025-01-24 06:00 | DI.RAD.S_ITS ---
PROCEDURE: XR CHEST 1V INDICATIONS: recent pnx TECHNIQUE: One view of the chest was acquired. COMPARISON: [facility], [place], XR CHEST 2V, 07/14/2020, 8:56. FINDINGS: Surgical changes and devices: None. Lungs and pleura: Minimal atelectasis, left lower lobe. No pleural effusions or pneumothorax. Mediastinum: Mediastinal contours appear normal. Heart size is normal. Bones and chest wall: No suspicious bony lesions. Overlying soft tissues appear unremarkable. IMPRESSION: Minimal atelectasis, left lower lobe. No airspace consolidation seen. Dictated by: Sharad Garcia M.D. on 01/24/2025 at 10:23 Approved by: Sharad Garcia M.D. on 01/24/2025 at 10:24
[2025-01-24] MEDS: SCOPOLAMINE 1 PATCH TOP (10:10)
[2025-01-24] MEDS: CELECOXIB 200 MG CAPSULE PO (10:10)
[2025-01-24] MEDS: FAMOTIDINE 20 MG/2 ML VIAL IV (10:11)
[2025-01-24] MEDS: LACTATED RINGERS 1,000 ML 42 ML IV ×4 (10:11→19:15)
[2025-01-24 10:30] LABS: Hematocrit 33.1 % (36-46); Hemoglobin 10.7 g/dL (12.0-16.0); Mean Corpuscular HGB Conc 32.5 % (30-36); Mean Corpuscular Hemoglobin 25.8 PG (26-34); Mean Corpuscular Volume 79.5 fL (80-100); Platelet Count 316 X10^3/uL (150-400); Red Blood Cell Count 4.16 X10^6/uL (4.0-5.2); Red Cell Distribution Width 24.1 % (11.6-14.8); White Blood Cell Count 5.7 X10^3/uL (4.5-11.0)
--- NOTE | 2025-01-24 10:57 | PM.PREOP ---
Pre-operative Note Interval Note History & Physical reviewed/Exam performed by Physician: Yes Changes to H&P: No
--- NOTE | 2025-01-24 12:33 | PM.OP.1 ---
Operative Date/Time/Diagnoses Date of procedure: 01/24/25 Time of procedure: 13:00 Pre-op diagnosis: Infected left total hip arthroplasty Post-op diagnosis: same Procedure & Clinicians Procedure: Left total hip arthroplasty revision with placement of a antibiotic spacer, extensive debridement Same procedure as scheduled: Yes Indications: The patient has had progressively worsening left hip pain with radiographic changes consistent with arthritis. Non-operative management has failed and the patient has requested total hip replacement. The risks, benefits and alternatives to surgery were discussed with the patient prior to proceeding. Risks discussed included, but were not limited to, failure to relieve pain, leg length discrepancy, dislocation, stiffness, infection, nerve damage, deep venous thrombosis, pulmonary embolism, stroke, coma, heart attack, permanent paralysis and , as well as the potential need for eventual revision of the prosthetic. Surgeon: Renita Monsivais Nutrition Therapist: Jen Lunsford Anesthesia Type: General and Spinal Operative Notes Findings: Infected left total hip arthroplasty. Adequate stability. Adequate bone Closure Type: primary Specimen(s): other (Multiple cultures from acetabulum, femur synovium and deep canal, PCR) Prosthetic devices, grafts, tissues, transplants, or devices: Prostalac size 42 x 32 acetabular cup, size 1 Prostalac hip stem by 105 mm standard offset, Stimulan antibiotic beads 5 cc, Estimated Blood Loss (mL): 250 Blood products transfused: packed red blood cells (2 units transfused, 2 available) Procedure in detail: The patient was seen in the pre-operative area, where the patient identified the left hip as the operative site and this was marked with my initials. The patient received pre-operative antibiotics and was taken to the operating room and placed on the operative table in the right lateral decubitus position after satisfactory anesthesia. A time study technologist out was performed. The left leg was prepared from the ankle to the iliac crest with ChloroPrep in the usual fashion and draped through sterile drapes. A PA was used during the procedure and was essential for intraoperative retraction and safe implantation of the components. It was very extensive procedure because of the patient's high BMI with a BMI at this point a 44. She had a very complicated problem because of her infection with significant scar and inflammation. The hip was approached through an approximately 24 cm incision centered over the greater trochanter and curving gently posteriorly as it went proximally. Patient's previous surgical excision was and is excised in its entirety. This was carried sharply to the fascia randy, which was divided and retracted with a self retaining retractor. A Charnley retractor and 2 deep Gelpi were placed. There was moderate fluid which looked inflamed and was consistent with a probable low-grade infection in the subfascial layer. Culture and sensitivity was sent of the synovium and ultimately of the femur and the acetabulum. A combined specimen was sent for PCR. The trochanteric bursa was meticulously debrided of any necrotic or infected appearing material. I used a Jarquin to strip any inflamed or infected appearing fascia or subfascial area. Throughout the procedure there was meticulous care being taken to avoid the sciatic nerve, which was identified and protected throughout the case. The short external rotators were retracted. The hip was dislocated, and the femoral head was removed. Retractors were placed around the femur. I meticulously removed the femoral component. I had both Christian exodus osteotomes and Monsivais and Nephew flexible osteotomes and an oscillating saw. I resected bone around and underneath the femoral neck. I then meticulously used a tPA S to resect along the femoral component both in the anterior and posterior sides. Along the lateral shoulder I used combination of curved osteotomes as well as straight osteotomes and meticulously freed the femoral component from the underlying bone distally. I was able to advance osteotomes down essentially to the level predicted for the tip of the stem. At that point I attempted to extract the prosthesis. It was noted that it was still too stuck. I then went circumferentially to the best of my ability around the component again. Specifically working along lateral aspect of the femur and down the shaft. Anterior and posterior surfaces along the femoral neck aiming more towards the metaphysis used a saw to resect it portion of the bone underneath the femoral neck. And then specifically used multiple osteotomes along the calcar region. After extensive work the prosthesis was loose enough that I was able to tamp it out. There was some chula cortex especially in the calcar region and actually stepped Neocortex was noted. There was very minimal bone loss. The acetabulum was meticulously removed I used the explant device to circumferentially work around the acetabulum. There was 1 screw in the acetabulum so we removed the poly removed the screw and then worked circumferentially around the acetabulum. There was essentially minimal to almost no bone loss in the acetabulum. Retractors were placed to expose the acetabulum. I placed retractors around the acetabulum. I then reamed with a 52 which was the size of the removed cup in order to freshen the bone slightly and remove any pseudomembrane. There was minimal pseudo membrane noted. I also used a curette to remove tissue from the screw hole. Once all of the infected material had been completely debrided. We did an extensive chemical sterilization. We did 6 L of normal saline and Betadine soak for more than 3 minutes. After we had confirmed that anything that looked like it was potentially contaminated or infected had been removed and then packed the wound with a Betadine sponge and gauze in the canal soaked in Betadine. The wound was closed loosely. It was covered with a towel and Betadine op-site. The room was broken down at that moment. We did a complete re-prepped and redraped. Everybody changed their gloves gowns and outfit with complete new sterile equipment. The patient was re-prepped and draped in standard sterile fashion. The wound was open. The sponges were removed. Attention was then directed to the acetabulum. It was meticulously irrigated with additional normal saline. I specifically checked to make sure there was no residual contaminated tissue. The bone was carefully freshened. A Prostalac 44 x 32 mm cup was carefully cemented into place. Antibiotic cement was used with 3 g of vanco and 1.2 g of Tobra in a package of cement. The cup was meticulously held during cement hardening. The canal was then carefully checked and the [place] Rainbowc broaching system was used to broach the canal. There was competency of the femoral canal and some chula cortex. Carefully tamped down the broach. The broach was placed in the canal. A trial head and neck were then placed and the hip relocated and checked for leg length and stability. An intraoperative fluoroscopic evaluation confirmed the component position and no evidence of fracture. Fluoroscopy was used prior to the placement of the broach to confirm that there was no evidence of a fracture. The patient was stable in the position of sleep, of squatting, and could be put through a range of motion with 45 degrees internal rotation without dislocation. At 90 degrees flexion, internal rotation to about 70? Was possible before dislocation. This was felt to be satisfactory and the appropriate components were opened, and the trials were removed. The Prostalac component was made on the back table. Antibiotic cement was mixed and was used to cover the prosthesis. I carefully trimmed around the antibiotic cement. Unfortunately we were unable to place the Prostalac component. It was clearly binding distally. I attempted to tamp down the prosthesis. It went down partially into the canal but then could not be advanced to the previous level. We did attempt to do a trial reduction. The hip was reducible but unfortunately it was clearly too tight and too long. When we dislocated the hip it was noted that the cup was freed from the socket and the cup cement interface at failed. At that point the Prostalac component was removed. Unfortunately it was wedged distally and a portion of the cement mantle broke off distally and was then wedged in the canal. We used a combination of a Thompsons and reamers and ultimately were able to find a 3.5 mm long drill to remove the final piece of the cement which was noted to be more distal in the canal. Cement had to be removed in order to adequately seat the Prostalac component. Prostalac component was successfully removed. The cup was removed. The cement was removed from the cup. The bone was then re-irrigated and checked in the acetabulum and a new cup was cemented into the acetabulum. It was carefully held during hardening of the cement. Some Stimulan beads were placed distally in the canal in order to improve antibiotic concentration distally. The previously prepared Prostalac was reinserted without the cement distally as it was felt that it had been potted distally previously and the canal was too tight for the component with the cement mantle. The Prostalac now seated well in the canal. Cement was mixed and it was meticulously held especially holding version while the cement hardened. The femoral head was placed and the hip was reduced. Fairly extensive time was required for the procedure because of the need for mixing cement and antibiotic cement. We had mixed multiple batches. The wound was irrigated again with normal saline. We did final fluoroscopic evaluation of the hip. Looked like it was in acceptable alignment and acceptable position of the components. The acetabulum was cleared of all material and the hip relocated one final time. The capsulomuscular flap was then repaired to close space with PDS. The wound was closed with PDS. It was also closed with barbed stitches. The subcutaneous layer was closed with barbed sutures and skin glory. An neel dressing was applied and the patient was taken to recovery having tolerated the procedure well. Complications: none Post-operative Condition: stable Disposition: Acute Care Plan for aftercare: Partial weight-bearing on the left lower extremity. Place a PICC line tomorrow. Start IV antibiotics. Six weeks of IV antibiotics. Follow labs and sed rate. Anticipate inpatient stay for likely about 3 days. Okay to mobilize with strict posterior hip precautions and limited weight-bearing initially on the left lower extremity.
[2025-01-24] MEDS: CEFAZOLIN VIAL 3 GM in SODIUM CHLORIDE 0.9% 100 ML IV ×3 (13:51→20:29)
[2025-01-24] MEDS: TRANEXAMIC ACID 1,000 MG VIAL 2000 MG INJ ×2 (14:13→20:06)
[2025-01-24 17:13] LABS: Hematocrit 34.1 % (36-46); Hemoglobin 10.9 g/dL (12.0-16.0); Mean Corpuscular HGB Conc 31.9 % (30-36); Mean Corpuscular Hemoglobin 26.2 PG (26-34); Mean Corpuscular Volume 82.3 fL (80-100); Platelet Count 260 X10^3/uL (150-400); Red Blood Cell Count 4.15 X10^6/uL (4.0-5.2); Red Cell Distribution Width 23.1 % (11.6-14.8); White Blood Cell Count 9.1 X10^3/uL (4.5-11.0)
[2025-01-24] MEDS: VANCOMYCIN 1,000 MG VIAL 7000 MG TOP (17:54)
[2025-01-24] MEDS: GENTAMICIN 80 MG/2 ML VIAL 120 MG INTRA-ARTI (17:56)
[2025-01-24] MEDS: TOBRAMYCIN 1.2 GM VIAL 2.4 GM INTRA-ARTI (17:56)
[2025-01-24] MEDS: BUPIVACAINE 0.25% W/ EPI 30 ML VIAL 60 ML INJ (17:57)
[2025-01-24] MEDS: BUPIVACAINE LIPOSOME 266 MG/20 ML VIAL INJ (17:57)
--- NOTE | 2025-01-24 20:00 | SUR.OPER ---
Updated for the second time regarding the progress of the case. Patient remains in surgery at this time.
[2025-01-24] MEDS: ACETAMINOPHEN IV 1,000 MG/100 ML VIAL 400 MG IV (20:38)
--- NOTE | 2025-01-24 21:02 | EKG_ITS ---
[address] [address] Test Date: 2025-01-24 Pat Name: Bri Ramey Department: [facility] Room: 203 Gender: Female Sales Development Director: ZACK : [id number] Requested By: Order Number: [id number] [place] MD: Quirino Albert Measurements Intervals [place] Rate: 104 P: 42 [place]: 162 QRS: 38 QRSD: 78 T: -13 QT: 368 QTc: 483 Interpretive Statements Sinus tachycardia Cannot rule out Anterior infarct , age undetermined Electronically Signed On 01-28-2025 8:29:44 PDT by Quirino Albert
[2025-01-24 21:25] LABS: Hematocrit 33.5 % (36-46); Hemoglobin 10.9 g/dL (12.0-16.0)
[2025-01-24] MEDS: ONDANSETRON 4 MG/2 ML INJ IV (21:30)
[2025-01-24] MEDS: HYDROMORPHONE 1 MG INJ IV (21:30)
[2025-01-24] MEDS: INSULIN REGULAR 100 UNIT/ML 3 ML VIAL SUBCUT (21:32)
[2025-01-24] MEDS: ONDANSETRON 4 MG ODT PO (22:10)
[2025-01-24] MEDS: LACTATED RINGERS 1,000 ML 100 ML IV (22:25)
[2025-01-24] MEDS: CALCIUM CARBONATE 500 MG TAB 1000 MG PO (22:32)
[2025-01-24] MEDS: OXYCODONE IR 5 MG TABLET PO (23:15)
[2025-01-24] MEDS: QUETIAPINE 25 MG TABLET PO (23:16)
[2025-01-24] MEDS: DOCUSATE 100 MG CAPSULE PO (23:16)
[2025-01-24] MEDS: ASPIRIN EC 81 MG TABLET PO (23:16)
[2025-01-25] VITALS (7 sets, daily range): BP systolic 95–131; BP diastolic 48–71; PULSE 61–83; RESP 13–18; TEMP 36.2–37.4; O2SAT 95–99
--- NOTE | 2025-01-25 00:15 | PC.NURSE ---
Patient arrived from PACU approximately 0. Patient is AxOx4, fatigued. VSS, SpO2 96% on 3L NC. Unable to tolerate home CPAP d/t nausea. ANA drsg on L hip is CDI, green light flashing. Reports 6/10 pain in L hip & heartburn, medicated as ordered with good effect. IVF infusing. Bello in place draining clear, yellow urine. Oriented to call-light, plan of care ongoing.
[2025-01-25] MEDS: IBUPROFEN 400 MG TABLET PO ×2 (00:24→05:30)
[2025-01-25] MEDS: ACETAMINOPHEN 325 MG TABLET 650 MG PO ×4 (00:24→20:12)
[2025-01-25] MEDS: HYDROMORPHONE 0.5 MG INJ IV (02:08)
[2025-01-25] MEDS: cefTRIAXone 2,000 MG in SODIUM CHLORIDE 0.9% 100 ML 200 MG IV (02:08)
[2025-01-25] MEDS: HYDROMORPHONE 2 MG TABLET PO ×4 (05:29→18:07)
[2025-01-25 05:36] LABS: Hematocrit 26.9 % (36-46)
[2025-01-25] MEDS: CYANOCOBALAMIN (VITAMIN B-12) 500 MCG TABLET 5000 MCG PO (08:16)
[2025-01-25] MEDS: DOCUSATE 100 MG CAPSULE PO ×2 (08:17→20:28)
[2025-01-25] MEDS: GABAPENTIN 400 MG CAPSULE 800 MG PO ×3 (08:17→20:28)
[2025-01-25] MEDS: ASPIRIN EC 81 MG TABLET PO ×2 (08:17→20:28)
[2025-01-25] MEDS: estradioL 1 MG TABLET 2 MG PO (08:18)
[2025-01-25] MEDS: atenoloL 25 MG TABLET 50 MG PO (08:18)
[2025-01-25] MEDS: FERROUS SULFATE 325 MG TABLET PO ×2 (08:18→20:28)
[2025-01-25] MEDS: allopurinoL 100 MG TABLET PO (08:18)
[2025-01-25] MEDS: PANTOPRAZOLE DR 20 MG TABLET PO ×2 (08:18→20:28)
[2025-01-25] MEDS: hydroCHLOROthiazide 25 MG TABLET PO (08:18)
[2025-01-25 08:28] LABS: Alanine Aminotransferase 21 IU/L (<35); Albumin 2.6 g/dL (3.5-5.0); Alkaline Phosphatase 45 U/L (38-126); Aspartate Aminotransferase 35 IU/L (14-36); BUN Creatinine Ratio 25.4 (6-22); Bilirubin Total 0.2 mg/dL (0.2-1.3); Blood Urea Nitrogen 16 mg/dL (7-17); Calcium 7.7 mg/dL (8.4-10.2); Carbon Dioxide 23 mmol/L (22-32); Chloride 104 mmol/L (98-107); Estimated Glomerular Filt Rate > 60 mL/min (>60); Globulin 2.6 g/dL (1.7-4.1); Glucose 141 mg/dL (70-100); HEMOLYSIS 17 (0-50); Potassium 4.8 mmol/L (3.4-5.1); Sodium 134 mmol/L (137-145); Total Protein 5.2 g/dL (6.3-8.2)
[2025-01-25 08:29] LABS: Mean Corpuscular HGB Conc 32.3 % (30-36); Mean Corpuscular Hemoglobin 26.5 PG (26-34); Mean Corpuscular Volume 82.2 fL (80-100); Platelet Count 271 X10^3/uL (150-400); Red Cell Distribution Width 21.5 % (11.6-14.8); White Blood Cell Count 8.7 X10^3/uL (4.5-11.0)
--- NOTE | 2025-01-25 09:00 | OT.IP.EVAL ---
Current Diagnoses Infection and inflammatory reaction due to other internal joint prosthesis, subsequent encounter (01/24/25) Presence of left artificial hip joint (01/24/25) Surgery Performed Operation Date: 01/24/25 11:45 Actual Procedures p Revision, total arthroplasty, hip, stage 1 (left). Revision, total arthroplasty, hip, both components (left)(Left) - Rneita Monsivais MD Past Medical History (Last Updated 01/22/25 @ 14:13 by Rosaura Givens RN) Anxiety (2010) Chronic pain of left elbow Chronic right shoulder pain Depression (2010) Esophageal dilatation Essential hypertension Fibromyalgia (~2013) Finger pain, right Generalized headaches (2010) Genital warts (1989) History of COVID-19 History of intraoperative complication of surgical procedure History of postoperative complication of surgical procedure Hypersomnia Hypertension (2010) Iron deficiency anemia Obstructive sleep apnea of adult Osteoarthritis Ovarian cyst (1999) Pancreatitis PTSD (post-traumatic stress disorder) (2010) Recurrent major depression resistant to treatment Snoring Surgical History (Last Updated 01/22/25 @ 13:49 by Rosaura Givens RN) H/O gastric sleeve (~2020) History of History of intestinal surgery (Unknown) History of major abdominal surgery (2010) History of total left hip replacement (08/09/24) Hx of cholecystectomy Hx of colonoscopy (01/09/20) Hx of hernia repair Hx of oophorectomy (2010) S/P hysterectomy (Unknown) Status post repair of recurrent ventral hernia Status post repair of ventral hernia Occupational Therapy Inpatient Evaluation/Re-Eval M1 PT/OT-IP Prior Functional Status Start: 01/25/25 11:41 Freq: NEEDED Status: Active Protocol: Document 01/25/25 09:05 AB (Rec: 01/25/25 12:19 AB [id number]) Medical Review Prior Functional Status Medical History Reviewed Yes Communication able to make needs known Mobility and Gait pt stated that she was independent with all mobilities and ambulation without AD Social History Household Members spouse,children Living Arrangements House Number of Floors (Floors) One Floor Number of Stairs To Enter/Railing? ramp to enter Home Environment Walk in Shower,Tub/Shower, Bidet Home Equipment Front Wheel Walker,Manual Wheelchair,Shower Seat without Backrest,Hand Held Shower, Grab Bars In Shower Additional Social History Comment pt's daughter will be assisting pt at home pt currently has a tub shower but will be changed to a walk in shower by tomorrow pt will be getting a bedside commode pt has a recliner chair and an adjustable bed M1 PT/OT-IP Prior Functional Status Start: 01/25/25 12:10 Freq: NEEDED Status: Active Protocol: Document 01/25/25 12:10 [facility] (Rec: 01/25/25 12:22 [facility] [id number]) Medical Review Prior Functional Status Communication I Mobility and Gait I Activities of Daily Living and IADL's I Social History Household Members spouse,children Living Arrangements House Number of Floors (Floors) One Floor Home Environment Ramp,Bidet Home Equipment Four Wheel Walker,Manual Wheelchair,Shower Seat without Backrest,Hand Held Shower, Whiskey Regauger,Grab Bars In Shower Additional Social History Comment Pt has an adjustable bed and getting her tub shower coverted to a WIS. Pt also has a standard walker . M2 OT-IP Current Condition Start: 01/25/25 12:10 Freq: Status: Active Protocol: Document 01/25/25 12:10 [facility] (Rec: 01/25/25 12:22 [facility] [id number]) Occupational Therapy Current Condition Current Condition Evaluation Date 01/25/25 Treatment Diagnosis S/P L JUAN revision and placement of antibiotic spacer Diagnosis Onset Date 01/25/24 Post Operative Precautions Posterior Hip Precautions No Hip Flexion > 90 degrees,No Hip Internal Rotation,No Hip Adduction Weight Bearing Status Weight Bearing Status Touch Down Weight Bearing Allowed Weight Bearing Amount (enter % TDWT for LLE or #) (%) M3 OT- IP Subjective and Pain Start: 01/25/25 12:10 Freq: Status: Active Protocol: Document 01/25/25 12:10 [facility] (Rec: 01/25/25 12:22 [facility] [id number]) OT- Subjective Occupational Therapy Visit Type Type Initial Evaluation Visit Start Time 09:00 Visit Stop Time 09:40 Occupational Therapy Visit Comments Patient Comments Pt agreed to get up. Patient/Caregiver Goals TO go home. OT Pain Assessment Pain When Pain Assessed At Rest Pain Present Pain Present Pain Reported Location Left Hip Intensity 5 Scale Used Numeric (0 - 10) M4 OT- IP ADL's Start: 01/25/25 12:10 Freq: Status: Active Protocol: Document 01/25/25 12:10 [facility] (Rec: 01/25/25 12:22 [facility] [id number]) OT WAH-Infi-Appnynz General Evaluation Self-Feeding Ability Independent OT ADL-Grooming Comments OT Grooming Comments Not performed. OT ADL-Oral Care Comments Oral Care Comments NOt performed. OT ADL-Dressing General Eval Lower Body Dressing Ability Total Assistance Areas Needing Assistance Socks Comments OT Dressing Comments Pt states her family to assist her and that her daughter to stay for 30 days to help out. OT ADL-Toileting General Evaluation Toileting Ability Total Assistance Areas Needing Assistance Empty Catheter or Colostomy Comments OT Toileting Comments Bello. Pt has a toilet safety frame but looking to get a BSC. OT ADL-Bathing Comments OT Bathing Comments Pt states getting her tub/ shower converted to WIS. M5 OT- IP IADL's Start: 01/25/25 12:10 Freq: Status: Active Protocol: Document 01/25/25 12:10 [facility] (Rec: 01/25/25 12:22 [facility] [id number]) OT-Instrumental Activities of Daily Living Deficits IADL Deficits Identified Deficits Home Safety Awareness Awareness of Need for Assistance at Home Good Awareness Home Safety Comments Pt is very groggy and best to have assist for needs. Medication Management Medication Management Comments Pt to have assist at this time . Money Management Money Management Comments Best to have assist at this time. Meal Preparation Meal Preparation Caregiver Provides Assist Manual Equipment Mechanic Manual Equipment Mechanic Caregiver Provides Assist M6 OT- IP Functional Cognition Start: 01/25/25 12:10 Freq: Status: Active Protocol: Document 01/25/25 12:10 [facility] (Rec: 01/25/25 12:22 [facility] [id number]) Cognitive Factors Limiting Selfcare Function Cognitive Ability Level of Alertness Confusional State Patient Orientation Name,Place,Situation Attention Span Ability Capable of Focused Attention, Capable of Sustained Attention Ability to Follow Commands Able to Follow One Step Commands with Increased Time, Able to Follow One Step Commands with Repetition Memory Description Short Term Impaired Safety Awareness Decreased Recall of Precautions Cognitive Comments Cognitive Assessment Comments Pt a bit groggy and not able to recall her hip precautions at this time and needing continuous education to help remind her to follow for ADL and mobility needs. OT- Vision and Hearing OT- Vision Assessment Vision History Cataracts Visual Acuity Glasses All The Time Visual Attentiveness WFL M7 OT- IP Mobility and Balance Start: 01/25/25 12:10 Freq: Status: Active Protocol: Document 01/25/25 12:10 [facility] (Rec: 01/25/25 12:22 [facility] [id number]) OT- Bed Mobility Assessment Supine to Sit Supine to Sit Assist Moderate Assistance,1 Person Assistance Scooting Scooting to Edge of Bed Moderate Assistance OT-Transfer Assessment Sit to and From Stand Sit to and from Stand Moderate Assistance,1 Person Assistance Transfers Transfer Ability Minimal Assistance,2 Person Assistance Technique Transfer Destination Bed,Chair Comments Mobility Comments Assist for LLE management . MODA x1 to stand to the FWW and KIERA x2 for safety and able to follow her LLE TTWB to the recliner. Pt will benefit from getting a FWW for home use. OT- Balance Assessment Sitting Balance and Reactions Static Sitting Balance Ability Good Dynamic Sitting Balance Ability Good Standing Balance and Reactions Static Standing Balance Ability Fair Dynamic Standing Balance Ability Fair M8 OT- IP Objective Assessments Start: 01/25/25 12:10 Freq: Status: Active Protocol: Document 01/25/25 12:10 [facility] (Rec: 01/25/25 12:22 [facility] [id number]) OT Gross Range of Motion Upper Extremity Range of Motion Assessment Within Functional Limits OT Strength Upper Extremity Strength Assessment Within Functional Limits M9 OT- IP Assessment and Plan Start: 01/25/25 12:10 Freq: Status: Active Protocol: Document 01/25/25 12:10 [facility] (Rec: 01/25/25 12:22 [facility] [id number]) OT Summary Assessment and Plan Potential Rehabilitation Potential Excellent Analytic Complexity at Evaluation Low Summary OT Impairments Pain,Strength,Balance, Functional Mobility,Dressing, Toileting,Bathing,Toilet Transfers,Shower Transfers, Activity Tolerance Progress Towards Goals Slow Progress due to Medical Issues,Slow Progress due to Activity Tolerance Assessment Summary Pt low complexity and main barriers are pain, a bit groggy and not able to recall her hip precautions, and will need assist for ADL and mobility needs at home. Pt will benefit from / assist at home. Pt also benefit from getting a FWW and BSC. Goals Self-Feeding Goal Independent Grooming Goal Independent Dressing Goal Independent,Whiskey Regauger,Sock Aid Toileting Goal Independent Bathing Goal Minimal Assistance Toilet Transfer Goal Independent Shower Transfer Goal Contact Guard Assistance Days to Meet Goals 7 Frequency of Treatment Other frequency 5x/week Treatment Plan OT Treatment Plan ADL Training,Functional Cognition Training,Functional Mobility,Patient/Family Education,Discharge Planning Other Treatment Recommendations and Next Transfer with CGAx1 to the BSC Treatment Focus with FWW. Discharge Recommendations OT Discharge Recommendations Home with / Assist Available Home Equipment Needs BSC,FWW Transportation Needs at Discharge Private Vehicle
--- NOTE | 2025-01-25 09:05 | PT.IIE ---
Current Diagnoses Infection and inflammatory reaction due to other internal joint prosthesis, subsequent encounter (01/24/25) Presence of left artificial hip joint (01/24/25) Surgery Performed Operation Date: 01/24/25 11:45 Actual Procedures p Revision, total arthroplasty, hip, stage 1 (left). Revision, total arthroplasty, hip, both components (left)(Left) - Renita Monsivais MD Surgical History (Last Updated 01/22/25 @ 13:49 by Rosaura Givens, RN) H/O gastric sleeve (~2020) History of History of intestinal surgery (Unknown) History of major abdominal surgery (2010) History of total left hip replacement (08/09/24) Hx of cholecystectomy Hx of colonoscopy (01/09/20) Hx of hernia repair Hx of oophorectomy (2010) S/P hysterectomy (Unknown) Status post repair of recurrent ventral hernia Status post repair of ventral hernia Medical History (Last Updated 01/22/25 @ 14:13 by Rosaura Givens RN) Anxiety (2010) Chronic pain of left elbow Chronic right shoulder pain Depression (2010) Esophageal dilatation Essential hypertension Fibromyalgia (~2013) Finger pain, right Generalized headaches (2010) Genital warts (1989) History of COVID-19 History of intraoperative complication of surgical procedure History of postoperative complication of surgical procedure Hypersomnia Hypertension (2010) Iron deficiency anemia Obstructive sleep apnea of adult Osteoarthritis Ovarian cyst (1999) Pancreatitis PTSD (post-traumatic stress disorder) (2010) Recurrent major depression resistant to treatment Snoring Physical Therapy Inpatient Evaluation/Re-Eval M1 PT/OT-IP Prior Functional Status Start: 01/25/25 11:41 Freq: NEEDED Status: Active Protocol: Document 01/25/25 09:05 AB (Rec: 01/25/25 12:19 AB [id number]) Medical Review Prior Functional Status Medical History Reviewed Yes Communication able to make needs known Mobility and Gait pt tated that she was independent with all mobilities and ambulation without AD Social History Household Members spouse,children Living Arrangements House Number of Floors (Floors) One Floor Number of Stairs To Enter/Railing? ramp to enter Home Environment Walk in Shower,Tub/Shower, Bidet Home Equipment Front Wheel Walker,Manual Wheelchair,Shower Seat without Backrest,Hand Held Shower, Grab Bars In Shower Additional Social History Comment pt's daughter will be assisting pt at home pt currently has a tub shower but will be changed to a walk in shower by tomorrow pt will be getting a bedside commode pt has a reclincer chair and an adjustable bed M2 PT-IP Current Condition Start: 01/25/25 11:41 Freq: NEEDED Status: Active Protocol: Document 01/25/25 09:05 AB (Rec: 01/25/25 12:19 AB [id number]) Physical Therapy Current Condition Current Condition Evaluation Date 01/25/25 Treatment Diagnosis s/p L JUAN revision w/ implant of antibiotic spacer; difficulty in walking Onset Date 01/24/25 M3 PT-IP Subjective Start: 01/25/25 11:41 Freq: NEEDED Status: Active Protocol: Document 01/25/25 09:05 AB (Rec: 01/25/25 12:19 AB [id number]) Subjective Physical Therapy Visit Type Type Initial Evaluation Visit Start Time 09:05 Visit Stop Time 09:50 Number of STUDENT ADVISOR Visits 0 Physical Therapy Visit Comments Patient Comments agreeable to do PT Therapy Pain Assessment Pain When Pain Assessed At Rest Pain Present Pain Present Pain Reported Location Left Hip Intensity 3 Scale Used Numeric (0 - 10) Pain Management Techniques Apply Cold,Modification of Treatment,Re-positioning, Timing of Activity with Medications M4 PT-IP Mobility and Gait Start: 01/25/25 11:41 Freq: NEEDED Status: Active Protocol: Document 01/25/25 09:05 AB (Rec: 01/25/25 12:19 AB [id number]) PT-Bed Mobility Assessment Supine to Sit Supine to Sit Moderate Assistance PT-Transfer Assessment Sit to and From Stand Sit to and from Stand Moderate Assistance,1 Person Assistance,Use of Upper Extremities Equipment Transfer Assistive Device Gait Belt,Front Wheeled Walker Orthotic/Prosthetic Devices or Brace: No Transfers Transfer Destination Chair Transfer Technique Stand Step Pivot Transfer Ability Level of Assist Minimal Assistance,2 Person Assistance,Use of Upper Extremities Comments Mobility Comments pt in bed and agreeable to do PT. obtained PLOF and home set up. educated pt on L hip posterior precautions and TTWB . Pt requiring cues to recall hip precautions. BP in supine : 96/52. pt completed supine to sit mod A to move LLE and max cues for techniques. pt able to sit on EOB SBA. BP sittin/57. c/o slight dizziness. pt rested sitting on ANTONIA. BP checked again: 116 /57. educated pt on how to maintain TTWB but if unable, can do NWB for conservative measure. pt understood. sit to stand from EOB mod A and max cues. pt step transfer to chair using FWW min A x 2 and max cues. pt able to maintain weight bearing restriction on LLE. positioned pt on the chair. call light and table placed within reach. PT-Balance Assessment Sitting Balance and Reactions Static Sitting Balance Ability Normal Dynamic Sitting Balance Ability Good Standing Balance and Reactions Static Standing Balance Ability Fair Dynamic Standing Balance Ability Poor Device Used FWW M5 PT-IP Objective Assessments Start: 01/25/25 11:41 Freq: NEEDED Status: Active Protocol: Document 01/25/25 09:05 AB (Rec: 01/25/25 12:19 AB [id number]) Orientation Orientation/Cognition Level of Alertness Alert Orientation Name,Place,Situation Safety Awareness Decreased Safety Awareness Memory Description Short Term Impaired Gross Range of Motion Lower Extremity ROM Assessment Within Functional Limits Strength Lower Extremity Strength Assessment Left Impaired Sensation Assessment Sensation Gross Sensation WNL Muscle Tone Muscle Tone WNL Yes M6 PT-IP Treatment Start: 01/25/25 11:41 Freq: NEEDED Status: Active Protocol: Document 01/25/25 09:05 AB (Rec: 01/25/25 12:19 AB [id number]) Physical Therapy Treatment Exercises Exercises Heel Slides Education Education Provided Precautions,Weight Bearing Status,Post-Op Packet,Safety M7 PT-IP Assessment and Plan Start: 01/25/25 11:41 Freq: NEEDED Status: Active Protocol: Document 01/25/25 09:05 AB (Rec: 01/25/25 12:19 AB [id number]) PT Summary Assessment and Plan Potential Rehabilitation Potential Fair Status of Condition at Evaluation Evolving Summary Impairments Pain,ROM,Strength,Balance, Coordination,Sensation,Tone, Cognition,Bed Mobility, Transfers,Gait,Activity Tolerance Assessment Summary pt is a 59 y/o F s/p L JUAN revision with implant of antibiotic spacer POD 1. pt has L hip posterior precautions and is TTWB on LLE . pt requiring mod A for bed mobility, mod A for sit to stand and min A x 2 for transfers using FWW. will continue to assess progress. will conduct caregiver training when appropriate. Goals Bed Mobility Goal Standby Assistance Transfer Goal Standby Assistance,Front Wheeled Walker Gait Goal Standby Assistance,Front Wheel Walker Gait Distance 25 Other Goals improved bed mobility, transfer and ambulation using FWW ~50 ft mod I Days to Meet Goals 10 Frequency of Treatment Other frequency 1-2x/day Treatment Plan Physical Therapy Treatment Plan Bed Mobility Training,Transfer Training,Gait Training, Therapeutic Exercise,Balance Retraining,Post Op Education, Discharge Planning,Hot or Cold Pack,Neuromuscular Re-ed, Coordination Retraining,Manual Therapy Precautions Posterior Hip Precautions No Hip Flexion > 90 degrees,No Hip Internal Rotation,No Hip Adduction Weight Bearing Status Weight Bearing Status Touch Down Weight Bearing Allowed Weight Bearing Amount (enter % LLE TTWB or #) (%) Recommendations To Nursing Amount of Assist Needed 2 Person Assist Discharge Recommendations PT Discharge Recommendations Home with 13/06 Assist Available,Home Health Transportation Needs at Discharge Private Vehicle,Wheelchair/ Cabulance
--- NOTE | 2025-01-25 11:32 | DI.RAD.S_ITS ---
PROCEDURE: XR CHEST FOR PICC 1V INDICATIONS: PICC Placement COMPARISON: [facility], CR, XR CHEST 1V, 01/24/2025, 9:37. FINDINGS: PICC was placed by the intravenous therapy team from the right side. Fluoroscopic spot film demonstrates the tip of PICC projecting to the area of distal SVC. Patchy bilateral basilar atelectasis is noted. IMPRESSION: Tip of PICC projects to the area of distal SVC. Dictated by: Sharad Garcia M.D. on 01/25/2025 at 11:51 Approved by: Sharad Garcia M.D. on 01/25/2025 at 11:51
--- NOTE | 2025-01-25 12:13 | CM.DANOTE ---
Initial DCP Assessment Note Pt is a 59yo female, resident of [facility], Infected left total hip arthroplasty s/p Left total hip arthroplasty revision with placement of a antibiotic spacer, extensive debridement PCP: Juanito Johnson Payer: [employer]LIN/Jose Reviewed chart, Dr Monsivais's notes indicate patient will require at least 6 weeks of IV abx. Met w/patient to review discharge plan options. Patient reports living independently w/her spouse and two teenagers in [place]. Patient reports having had home infusion many years ago, cannot remember the agency name. Patient is followed by outpatient infectious disease provider Rene Rangel DO in the [facility]. Patient aware she will need ongoing IV abx and prefers to return home w/family and have home infusion. Patient has been warned that Medicare does not cover home infusion and states her disdain with this fact. Discussed SNF; patient will consider, no stated SNF preference at this time. Depending on the drug and dosing needed, patient may be able to get outpatient infusion at [facility] with Dr Orourke's orders (?) Patient presents as very anxious at this time and is preparing for PICC placement. This EYEWEAR CONSULTANT suggested another visit once therapies have had a chance to eval, patient appreciative. CM team will plan to follow clinical course closely, further conversation needed with patient re discharge options once therapies have evaluated and providers have decided on the outpatient abx treatment plan for patient. TEJA Lawton Discharge Planning/Care Management CM Discharge Assessment Start: 01/25/25 12:08 Freq: Status: Active Protocol: Document 01/25/25 12:08 GREG (Rec: 01/25/25 12:13 GREG [id number]) Discharge Planning Assessment Assigned Drupal Architect TEJA Gold DPOA/Assigned Designee Name Olayinka Ramey spouse Contact Information [phone] Advance Directives? No History Provided By Patient,Medical Record Prior Living Arrangements House Household Members spouse,children Type of transporation used prior to Relies on Others admit Independent with ADL's Yes Is patient alert and oriented? Yes Needs Assistance With Home Chores / Shopping Barriers to Discharge Yes Comment Anticipated 6 weeks IV abx Transportation Arrangement Likely private vehicle vs wheelchair
--- NOTE | 2025-01-25 12:24 | PM.PNPO.1 ---
Subjective Subjective Interval history: Alyssa is a pleasant 59 year old female who is POD#1 s/p left total hip arthroplasty revision with placement of a antibiotic spacer, extensive debridement by Dr. Monsivais. This afternoon patient reports she is feeling very tired, she also endorses significant pain. She was able to work w/ PT today and transfer to a chair wihtout too much pain but felt light headed while sitting. This resolved when she layed back down. She got 2 units PRBC yesterday d/t significant intra-op blood loss. H&H today is 9.0 and 28. She received picc today, planing for 6 weeks of IV abx. She does live at home w/ her who can provide some post-op support but is aware she may need SNF rehab initially d/t significantly limited mobility post-op. She has a arango in currently, will likely remove Arango today. Exam Vital Signs (past 8 hours): - 01/25/25 07:08 01/25/25 08:20 01/25/25 09:35 Temperature 97.2 F L Pulse Rate 61 70 Respiratory Rate 18 13 Blood Pressure 111/49 L 119/66 Pulse Oximetry 97 99 95 Oxygen Delivery Method Room Air Oxygen Flow Rate 2.5 2.5 Oxygen Delivery Method Room Air Oxygen Flow Rate 2.5 Narrative Exam Narrative: Patient lying comfortably in bed during examination today. Alert and oriented. Post-surgical ANA dressing is clean, dry and intact over the left posterior hip, no drainage. 5/5 strength w/ DF, PF, EHL. Knee flexion and extension intact. Calf soft and compressible, SCDs in place. SILT throughout the LLE. Objective Labs 01/25/25 08:15 01/25/25 05:26 Labs: Laboratory Results - last 24 hr 01/24/25 01/24/25 01/24/25 10:04 16:55 21:15 WBC 9.1 D RBC 4.15 Hgb 10.9 L 10.9 L Hct 34.1 L 33.5 L MCV 82.3 MCH 26.2 MCHC 31.9 RDW 23.1 H Plt Count 260 Sodium Potassium Chloride Carbon Dioxide BUN Creatinine Estimated GFR BUN/Creatinine Ratio Glucose Calcium Total Bilirubin AST ALT Alkaline Phosphatase Total Protein Albumin Globulin Albumin/Globulin Ratio Blood Type O Positive Antibody Screen Negative Crossmatch See Detail 01/25/25 01/25/25 05:26 08:15 WBC 8.7 RBC 3.40 L Hgb 9.0 L 9.0 L Hct 26.9 L 28.0 L MCV 82.2 MCH 26.5 MCHC 32.3 RDW 21.5 H Plt Count 271 Sodium 134 L Potassium 4.8 Chloride 104 Carbon Dioxide 23 BUN 16 Creatinine 0.63 Estimated GFR > 60 BUN/Creatinine Ratio 25.4 H Glucose 141 H Calcium 7.7 L Total Bilirubin 0.2 AST 35 ALT 21 Alkaline Phosphatase 45 Total Protein 5.2 L Albumin 2.6 L Globulin 2.6 Albumin/Globulin Ratio 1.0 Blood Type Antibody Screen Crossmatch [facility] Medical History (Updated 01/25/25 @ 13:45 by Jen Lunsford PA-C) Iron deficiency anemia History of COVID-19 Osteoarthritis Pancreatitis Esophageal dilatation History of postoperative complication of surgical procedure History of intraoperative complication of surgical procedure Recurrent major depression resistant to treatment Hypersomnia Obstructive sleep apnea of adult Snoring Finger pain, right Chronic pain of left elbow Chronic right shoulder pain Essential hypertension Generalized headaches (2010) PTSD (post-traumatic stress disorder) (2010) Depression (2010) Anxiety (2010) Fibromyalgia (~2013) Ovarian cyst (1999) Genital warts (1989) Hypertension (2010) Surgical History (Updated 01/25/25 @ 13:42 by Jen Lunsford PA-C) History of total left hip replacement (08/09/24) Hx of colonoscopy (01/09/20) H/O gastric sleeve (~2020) Hx of cholecystectomy Hx of hernia repair Hx of oophorectomy (2010) History of Status post repair of recurrent ventral hernia Status post repair of ventral hernia History of major abdominal surgery (2010) History of intestinal surgery (Unknown) S/P hysterectomy (Unknown) Family History Father No problems noted. Mother Cancer Social History marital status: details: to Olayinka household members: spouse and children lives independently: Yes caregiver/support person: No housing: house pets and animals: Yes education level: college Smoking Status: Former smoker alcohol intake: never substance use type: does not use Assessment & Plan Post-op Assessment and plan (1) Prosthetic hip infection: Assessment and Plan narrative: 1) PICC placed today. On ceftriaxone 2g daily per [facility] ID. Will need IV abx for a minimum of 6 weeks. 2) Gram stain negative for organisms, no aerobic growth preliminarily, anaerobic pending on all specimens sent. 3) Specimens also sent for PCR, which will take several days to result. (2) S/P revision of total hip: Assessment and Plan narrative: 1) Pt has a h/o gastric bypass and should NOT receive NSAIDs. Diclofenac and IBPN discontinued. 2) Despite above, ok to remain on ASA 81mg BID for VTE prophylaxis. 3) Touchdown weightbearing only to LLE w/ posterior hip precautions for 6 weeks. 4) Will need SNF placement prior to going home. (3) Acute on chronic blood loss anemia: Assessment and Plan narrative: Acute anemia d/t blood loss during extensive surgery. She received 2 units PRBCs in surgery, though one unite is still recorded as transfusing. Will continue to monitor H&H with daily CBC as well as CMP d/t antibiotics. Postoperative Procedures: Procedures Operation Date: 01/24/25 11:45 Actual Procedure Side Surgeon p Revision, total arthroplasty, hip, stage 1 (left). Revision, total arthroplasty, hip, both components (left) Left Renita Monsivais MD Postoperative day: 1
--- NOTE | 2025-01-25 13:34 | P.PN_ITS ---
Subjective Subjective Date Patient Seen: 01/25/25 Time Patient Seen: 13:34 Interval history: Pt sitting up in bed, feeling well. Says she is still a little groggy from last night. Worked w/ PT today, said it was disconcerting to hear clicking and popping. Said she was NWB on left during PT. She does not want to go to SNF, but is aware she will not have the care or facilities she needs at home, at least initially. Her is currently installing a walk-in shower for her. Exam Vital Signs (past 8 hours): - 01/25/25 07:08 01/25/25 08:20 01/25/25 09:35 Temperature 97.2 F L Pulse Rate 61 70 Respiratory Rate 18 13 Blood Pressure 111/49 L 119/66 Pulse Oximetry 97 99 95 Oxygen Delivery Method Room Air Oxygen Flow Rate 2.5 2.5 Oxygen Delivery Method Room Air Oxygen Flow Rate 2.5 Narrative Exam Narrative: 4/5 hip flexors, quadriceps, hamstrings; 5/5 PF, DF, EHL on left. Sensation to light touch intact througout LLE. Calf soft and compressible. ANA dressing functioning, CDI. Objective Labs 01/25/25 08:15 01/25/25 05:26 Labs: Laboratory Results - last 24 hr 01/24/25 01/24/25 01/24/25 10:04 16:55 21:15 WBC 9.1 D RBC 4.15 Hgb 10.9 L 10.9 L Hct 34.1 L 33.5 L MCV 82.3 MCH 26.2 MCHC 31.9 RDW 23.1 H Plt Count 260 Sodium Potassium Chloride Carbon Dioxide BUN Creatinine Estimated GFR BUN/Creatinine Ratio Glucose Calcium Total Bilirubin AST ALT Alkaline Phosphatase Total Protein Albumin Globulin Albumin/Globulin Ratio Blood Type O Positive Antibody Screen Negative Crossmatch See Detail 01/25/25 01/25/25 05:26 08:15 WBC 8.7 RBC 3.40 L Hgb 9.0 L 9.0 L Hct 26.9 L 28.0 L MCV 82.2 MCH 26.5 MCHC 32.3 RDW 21.5 H Plt Count 271 Sodium 134 L Potassium 4.8 Chloride 104 Carbon Dioxide 23 BUN 16 Creatinine 0.63 Estimated GFR > 60 BUN/Creatinine Ratio 25.4 H Glucose 141 H Calcium 7.7 L Total Bilirubin 0.2 AST 35 ALT 21 Alkaline Phosphatase 45 Total Protein 5.2 L Albumin 2.6 L Globulin 2.6 Albumin/Globulin Ratio 1.0 Blood Type Antibody Screen Crossmatch [facility] Medical History (Updated 01/25/25 @ 13:45 by Jen Lunsford PA-C) Iron deficiency anemia History of COVID-19 Osteoarthritis Pancreatitis Esophageal dilatation History of postoperative complication of surgical procedure History of intraoperative complication of surgical procedure Recurrent major depression resistant to treatment Hypersomnia Obstructive sleep apnea of adult Snoring Finger pain, right Chronic pain of left elbow Chronic right shoulder pain Essential hypertension Generalized headaches (2010) PTSD (post-traumatic stress disorder) (2010) Depression (2010) Anxiety (2010) Fibromyalgia (~2013) Ovarian cyst (1999) Genital warts (1989) Hypertension (2010) Surgical History (Updated 01/25/25 @ 13:42 by Jen Lunsford PA-C) History of total left hip replacement (08/09/24) Hx of colonoscopy (01/09/20) H/O gastric sleeve (~2020) Hx of cholecystectomy Hx of hernia repair Hx of oophorectomy (2010) History of Status post repair of recurrent ventral hernia Status post repair of ventral hernia History of major abdominal surgery (2010) History of intestinal surgery (Unknown) S/P hysterectomy (Unknown) Family History Father No problems noted. Mother Cancer Social History marital status: details: to Olayinka household members: spouse and children lives independently: Yes caregiver/support person: No housing: house pets and animals: Yes education level: college Smoking Status: Former smoker alcohol intake: never substance use type: does not use Assessment & Plan Post-op Assessment and plan (1) Prosthetic hip infection: Assessment and Plan narrative: 1) PICC placed today. On ceftriaxone 2g daily per [facility] ID. Will need IV abx for a minimum of 6 weeks. 2) Gram stain negative for organisms, no aerobic growth preliminarily, anaerobic pending on all specimens sent. 3) Specimens also sent for PCR, which will take several days to result. (2) S/P revision of total hip: Assessment and Plan narrative: 1) Pt has a h/o gastric bypass and should NOT receive NSAIDs. Diclofenac and IBPN discontinued. 2) Despite above, ok to remain on ASA 81mg BID for VTE prophylaxis. 3) Touchdown weightbearing only to LLE w/ posterior hip precautions. 4) Will need SNF placement prior to going home. (3) Acute on chronic blood loss anemia: Assessment and Plan narrative: Acute anemia d/t blood loss during extensive surgery. I think she got 2 units PRBCs in surgery, though only one unit is recorded on I&O. Either way, her H/H is acceptable. Will check CBC daily to monitor as well as CMP d/t antibiotics. Postoperative Procedures: Procedures Operation Date: 01/24/25 11:45 Actual Procedure Side Surgeon p Revision, total arthroplasty, hip, stage 1 (left). Revision, total arthroplasty, hip, both components (left) Left Renita Monsivais MD Postoperative day: 1
--- NOTE | 2025-01-25 14:25 | PT.IPTN ---
Current Diagnoses Acute posthemorrhagic anemia (01/24/25) Infection and inflammatory reaction due to other internal joint prosthesis, initial encounter (01/24/25) Infection and inflammatory reaction due to other internal joint prosthesis, subsequent encounter (01/24/25) Presence of left artificial hip joint (01/24/25) Presence of unspecified artificial hip joint (01/24/25) Surgery Performed Operation Date: 01/24/25 11:45 Actual Procedures p Revision, total arthroplasty, hip, stage 1 (left). Revision, total arthroplasty, hip, both components (left)(Left) - Renita Monsivais MD Physical Therapy Treatment Note M2 PT-IP Current Condition Start: 01/25/25 11:41 Freq: NEEDED Status: Active Protocol: Document 01/25/25 09:05 AB (Rec: 01/25/25 12:19 AB [id number]) Physical Therapy Current Condition Current Condition Evaluation Date 01/25/25 Treatment Diagnosis s/p L JUAN revision w/ implant of antibiotic spacer; difficulty in walking Onset Date 01/24/25 M3 PT-IP Subjective Start: 01/25/25 11:41 Freq: NEEDED Status: Active Protocol: Document 01/25/25 14:25 AB (Rec: 01/25/25 15:10 AB [id number]) Subjective Physical Therapy Visit Type Type Treatment Note Visit Start Time 14:25 Visit Stop Time 14:35 Number of REGISTRATION REP Visits 0 Physical Therapy Visit Comments Patient Comments agreeable to do PT Therapy Pain Assessment Pain When Pain Assessed At Rest Pain Present Pain Present Pain Reported Location Left Hip Scale Used pain scale not stated Pain Management Techniques Apply Cold,Distraction, Modification of Treatment,Re- positioning,Timing of Activity with Medications M4 PT-IP Mobility and Gait Start: 01/25/25 11:41 Freq: NEEDED Status: Active Protocol: Document 01/25/25 14:25 AB (Rec: 01/25/25 15:10 AB [id number]) PT-Transfer Assessment Sit to and From Stand Sit to and from Stand Minimal Assistance,1 Person Assistance,Use of Upper Extremities Equipment Transfer Assistive Device Gait Belt,Front Wheeled Walker Orthotic/Prosthetic Devices or Brace: No Transfers Transfer Destination Chair Transfer Technique ambulated Transfer Ability Level of Assist Minimal Assistance,1 Person Assistance,Use of Upper Extremities Comments Mobility Comments pt found using the toilet. completed sit to stand min A and cues for TTWB on LLE. ambulated to chair using fWW min A ~ 12 ft. pt stated that she is exhausted. reviewed posterior hip precautions with pt and pt recalled /3. educated pt again on hip precautions. pt informed PT that daughter now will not be able to stay and assist her at home and will not have assistance most of the day. pt stated that she prefers to go to rehab. called case management to inform. Gait Assessment Gait Gait Assistance Required: Minimum Assistance Distance (Feet) 12 Able to Maintain Weight Bearing Status Yes During Gait Assistive Devices Assistive Device Gait Belt,Front Wheeled Walker Orthotic/Prosthetic Devices or Brace: No Gait Deviations General Gait Pattern Step-to Gait Factors Limiting Gait Function Factors Limiting Gait Function Decreased Activity Tolerance, Decreased Strength,Difficulty Following Directions,Limited Range of Motion,Pain,Poor Balance,Poor Safety Awareness M5 PT-IP Objective Assessments Start: 01/25/25 11:41 Freq: NEEDED Status: Active Protocol: Document 01/25/25 09:05 AB (Rec: 01/25/25 12:19 AB [id number]) Orientation Orientation/Cognition Level of Alertness Alert Orientation Name,Place,Situation Safety Awareness Decreased Safety Awareness Memory Description Short Term Impaired Gross Range of Motion Lower Extremity ROM Assessment Within Functional Limits Strength Lower Extremity Strength Assessment Left Impaired Sensation Assessment Sensation Gross Sensation WNL Muscle Tone Muscle Tone WNL Yes M6 PT-IP Treatment Start: 01/25/25 11:41 Freq: NEEDED Status: Active Protocol: Document 01/25/25 14:25 AB (Rec: 01/25/25 15:10 AB [id number]) Physical Therapy Treatment Education Education Provided Precautions,Weight Bearing Status,Post-Op Packet,Safety M7 PT-IP Assessment and Plan Start: 01/25/25 11:41 Freq: NEEDED Status: Active Protocol: Document 01/25/25 14:25 AB (Rec: 01/25/25 15:10 AB [id number]) PT Summary Assessment and Plan Potential Rehabilitation Potential Fair Summary Impairments Pain,ROM,Strength,Balance, Coordination,Sensation,Tone, Cognition,Bed Mobility, Transfers,Gait,Activity Tolerance Progress Towards Goals Slow Progress due to Pain,Slow Progress due to Activity Tolerance Assessment Summary pt improving with mobility and able to ambulate ~ 12 ft using FWW min A and max cues. pt will still require 24/ assist. currently, pt will not have assistance at home for most of the day. pt plans to go to SNF. Goals Bed Mobility Goal Standby Assistance Transfer Goal Standby Assistance,Front Wheeled Walker Gait Goal Standby Assistance,Front Wheel Walker Gait Distance 25 Other Goals improved bed mobility, transfer and ambulation using FWW ~50 ft mod I Days to Meet Goals 10 Frequency of Treatment Frequency Of Treatment Once a Day Other frequency . Treatment Plan Physical Therapy Treatment Plan Bed Mobility Training,Transfer Training,Gait Training, Therapeutic Exercise,Balance Retraining,Post Op Education, Discharge Planning,Hot or Cold Pack,Neuromuscular Re-ed, Coordination Retraining,Manual Therapy Precautions Posterior Hip Precautions No Hip Flexion > 90 degrees,No Hip Internal Rotation,No Hip Adduction Weight Bearing Status Weight Bearing Status Touch Down Weight Bearing Allowed Weight Bearing Amount (enter % LLE TTWB or #) (%) Recommendations To Nursing Amount of Assist Needed 1 Person Assist Discharge Recommendations PT Discharge Recommendations Home with 13/06 Assist Available,Home Health,SNF Rehab Transportation Needs at Discharge Private Vehicle,Wheelchair/ Cabulance - PT assist 1PA
[2025-01-25] MEDS: CALCIUM CARBONATE 500 MG TAB 1000 MG PO (14:39)
[2025-01-25] MEDS: polyethylene glycoL 3350 17 GM POWD.PACK PO (14:40)
[2025-01-25] MEDS: OXYCODONE IR 5 MG TABLET PO (20:12)
[2025-01-26 00:01] VITALS: BP 136/82; PULSE 86; RESP 18; TEMP 37; O2SAT 97
[2025-01-26] MEDS: SODIUM CHLORIDE 0.9% FLUSH 10 ML IV ×2 (01:55→21:46)
[2025-01-26] MEDS: cefTRIAXone 2,000 MG in SODIUM CHLORIDE 0.9% 100 ML 200 MG IV (01:55)
[2025-01-26] MEDS: OXYCODONE IR 5 MG TABLET PO ×4 (01:58→21:46)
[2025-01-26] MEDS: HYDROMORPHONE 2 MG TABLET PO ×3 (04:45→19:53)
[2025-01-26 08:00] VITALS: BP 106/56; PULSE 71; RESP 12; TEMP 36.8; O2SAT 96
[2025-01-26] MEDS: PANTOPRAZOLE DR 20 MG TABLET PO ×2 (08:45→21:44)
[2025-01-26] MEDS: GABAPENTIN 400 MG CAPSULE 800 MG PO ×3 (08:45→21:44)
[2025-01-26] MEDS: DOCUSATE 100 MG CAPSULE PO (08:45)
[2025-01-26] MEDS: estradioL 1 MG TABLET 2 MG PO (08:45)
[2025-01-26] MEDS: allopurinoL 100 MG TABLET PO (08:45)
[2025-01-26] MEDS: FERROUS SULFATE 325 MG TABLET PO ×2 (08:45→21:44)
[2025-01-26] MEDS: ACETAMINOPHEN 325 MG TABLET 650 MG PO ×3 (08:46→21:45)
[2025-01-26] MEDS: hydroCHLOROthiazide 25 MG TABLET PO (08:46)
[2025-01-26] MEDS: CYANOCOBALAMIN (VITAMIN B-12) 500 MCG TABLET 5000 MCG PO (08:46)
[2025-01-26] MEDS: ASPIRIN EC 81 MG TABLET PO ×2 (08:47→21:44)
--- NOTE | 2025-01-26 11:21 | P.PN_ITS ---
Subjective Subjective Interval history: Alyssa is a pleasant 59 year old female who is POD#2 s/p left total hip arthroplasty revision with placement of a antibiotic spacer, extensive debridement by Dr. Monsivais. This afternoon patient reports she is feeling very tired, she also endorses significant pain, she is tearful about the amount of pain she has been experiencing. She states she feels her pain is not well controlled because she is not taking her medication regularly enough. She also reports anxiety about working w/ PT d/t the feeling of instability and disconcerting feeling of popping sensation and sounds coming from her hip when she moves. She was able to work w/ PT yesterday and transfer to a chair without too much pain, has not seen them yet today. She states she was finally able to have a BM this morning but felt like she was going to pass out after sitting on the toilet for a while. Lightheadedness has overall improved from yesterday though. She did not take BP medication this AM or last night d/t low blood pressure still. She got 2 units PRBC on the day of surgery d/t significant intra-op blood loss. H&H yesterday was 9.0 and 28, has not been drawn yet today. She had her Bello removed yesterday and has been able to void on the toilet since. She received picc yesterday, planing for 6 weeks of IV abx. She does live at home w/ her who can provide some post-op support but is aware she may need SNF rehab initially d/t significantly limited mobility post- op. She has wheelchair and walker at home already. Exam Vital Signs (past 8 hours): - 01/26/25 08:00 Temperature 98.3 F Pulse Rate 71 Respiratory Rate 12 Blood Pressure 106/56 L Pulse Oximetry 96 Oxygen Flow Rate 0 Fraction of Inspired Oxygen 28 SaO2/FiO2 Ratio 342 Oxygen Delivery Method Nasal Cannula Oxygen Flow Rate 0 Narrative Exam Narrative: Patient lying comfortably in bed during examination today. Alert and oriented. Post-surgical ANA dressing is clean, dry and intact over the left posterior hip, no drainage. 5/5 strength w/ DF, PF, EHL. Knee flexion and extension intact. Calf soft and compressible, SCDs in place. SILT throughout the LLE. Objective Labs 01/25/25 08:15 01/25/25 05:26 Labs: Laboratory Results - last 24 hr 01/24/25 10:04 Blood Type O Positive Antibody Screen Negative Crossmatch See Detail [facility] Medical History (Updated 01/25/25 @ 13:45 by Jen Lunsford PA-C) Iron deficiency anemia History of COVID-19 Osteoarthritis Pancreatitis Esophageal dilatation History of postoperative complication of surgical procedure History of intraoperative complication of surgical procedure Recurrent major depression resistant to treatment Hypersomnia Obstructive sleep apnea of adult Snoring Finger pain, right Chronic pain of left elbow Chronic right shoulder pain Essential hypertension Generalized headaches (2010) PTSD (post-traumatic stress disorder) (2010) Depression (2010) Anxiety (2010) Fibromyalgia (~2013) Ovarian cyst (1999) Genital warts (1989) Hypertension (2010) Surgical History (Updated 01/25/25 @ 13:42 by Jen Lunsford PA-C) History of total left hip replacement (08/09/24) Hx of colonoscopy (01/09/20) H/O gastric sleeve (~2020) Hx of cholecystectomy Hx of hernia repair Hx of oophorectomy (2010) History of Status post repair of recurrent ventral hernia Status post repair of ventral hernia History of major abdominal surgery (2010) History of intestinal surgery (Unknown) S/P hysterectomy (Unknown) Family History Father No problems noted. Mother Cancer Social History marital status: details: to [place] household members: spouse and children lives independently: Yes caregiver/support person: No housing: house pets and animals: Yes education level: college Smoking Status: Former smoker alcohol intake: never substance use type: does not use Assessment & Plan Post-op Assessment and plan (1) Prosthetic hip infection: Assessment and Plan narrative: 1) PICC placed yesterday. On ceftriaxone 2g daily per [facility] ID. Will need IV abx for a minimum of 6 weeks. Awaiting BMP results for today still. 2) Gram stain negative for organisms, no aerobic growth preliminarily, anaerobic preliminary no growth on all specimens sent. 3) Specimens also sent for PCR, which will take several days to result. (2) S/P revision of total hip: Assessment and Plan narrative: 1) Pt has a h/o gastric bypass and should NOT receive NSAIDs. Diclofenac and IBPN discontinued. 2) Despite above, ok to remain on ASA 81mg BID for VTE prophylaxis. 3) Touchdown weightbearing only to LLE w/ posterior hip precautions for 6 weeks. 4) Will need SNF placement prior to going home. CM has been working on placement, patient wound prefer [facility] in [place] if possible. 5) Encouraged hydration for feelings of light headedness, ordered clear ensure for patient. Will check lytes on BMP ordered for today. 6) Adjusted patient pain medication for Oxycodone to be scheduled for improved pain control, IV Dilaudid still PRN. Tylenol and Gabapentin is also scheduled. (3) Acute on chronic blood loss anemia: Assessment and Plan narrative: Acute anemia d/t blood loss during extensive surgery. She received 2 units PRBCs in surgery, though one unite is still recorded as transfusing. Will continue to monitor H&H with daily CBC as well as CMP d/t antibiotics. H&H has not yet resulted for today. Postoperative Procedures: Procedures Operation Date: 01/24/25 11:45 Actual Procedure Side Surgeon p Revision, total arthroplasty, hip, stage 1 (left). Revision, total arthroplasty, hip, both components (left) Left Renita Monsivais MD Postoperative day: 2
--- NOTE | 2025-01-26 11:34 | CM.DPC ---
DCP SNF Planning: Per [facility]UM[facility], pt making progress but had fairly significant surgery with blood loss and pain and may need another 1-2 days before stable for d/c. PICC placed and will need 6 wks IV Ceftriaxone Q24 2g. Nba HUMMEL kindly signed PASRR for exempted hospital discharge due to depression/anxiety/PTSD. Per PT, recommending SNF. SW met bedside with pt and explained role and she confirms her is working hard to get the house set up with walk in shower that just arrived today and they have other DME at home along with FWW and w/c. Pt confirms that due to her pain and fatigue she does not think she can safely d/c straight home with spouse but feels SNF needed at d/c. Pt has no hx of SNF. SW provided the SNF Choice list and pt confirms her preference is 1) [facility] as they live in [place] 2) [facility] 3) [facility]. SW answered pt's questions regarding SNF and discussed MCR coverage of SNF and she confirms [employer] is her Secondary insurance. SALUD sent referrals to above SNFs requesting review and call back. PASRR done and signed in anticipation of SNF. Plan: SW to follow for above SNF reviews to determine if one can accept when pt stable for discharge. Mary Bryant MSW
[2025-01-26 12:00] VITALS: BP 118/59; PULSE 83; RESP 20; TEMP 36.8; O2SAT 98
[2025-01-26] MEDS: ESCITALOPRAM 10 MG TABLET 20 MG PO (12:54)
[2025-01-26 14:29] LABS: Hematocrit 23.4 % (36-46); Hemoglobin 7.7 g/dL (12.0-16.0)
[2025-01-26 14:51] LABS: BUN Creatinine Ratio 17.4 (6-22); Blood Urea Nitrogen 12 mg/dL (7-17); Calcium 7.9 mg/dL (8.4-10.2); Carbon Dioxide 27 mmol/L (22-32); Chloride 102 mmol/L (98-107); Estimated Glomerular Filt Rate > 60 mL/min (>60); Glucose 119 mg/dL (70-100); HEMOLYSIS < 15 (0-50); Potassium 3.5 mmol/L (3.4-5.1); Sodium 133 mmol/L (137-145)
--- NOTE | 2025-01-26 15:04 | PT-IP ANOTE ---
checked on pt and pt refusing PT. stated that she has just got back to the bed after sitting on the chair and using the toileting with nursing staff. stated that pain today is worse than yesterday. reviewed posterior hip precautions with pt and pt continue to require cues. also educated pt again on TTWB on LLE.
[2025-01-26 16:00] VITALS: BP 115/46; PULSE 102; RESP 12; TEMP 37.2; O2SAT 98
[2025-01-26] MEDS: POTASSIUM CHLORIDE 20 MEQ TAB 40 MEQ PO (17:13)
[2025-01-26 20:05] VITALS: BP 117/56; PULSE 82; RESP 19; TEMP 36.8; O2SAT 97
[2025-01-26] MEDS: atenoloL 25 MG TABLET 50 MG PO (21:45)
[2025-01-26 23:55] VITALS: PULSE 75
[2025-01-27] VITALS (8 sets, daily range): BP systolic 90–140; BP diastolic 56–78; PULSE 67–87; RESP 14–20; TEMP 35.9–37.3; O2SAT 95–97
[2025-01-27] MEDS: OXYCODONE IR 5 MG TABLET PO ×6 (01:09→21:29)
[2025-01-27] MEDS: cefTRIAXone 2,000 MG in SODIUM CHLORIDE 0.9% 100 ML 200 MG IV (01:15)
[2025-01-27] MEDS: FERROUS SULFATE 325 MG TABLET PO ×2 (09:18→21:31)
[2025-01-27] MEDS: GABAPENTIN 400 MG CAPSULE 800 MG PO ×3 (09:18→21:31)
[2025-01-27] MEDS: estradioL 1 MG TABLET 2 MG PO (09:18)
[2025-01-27] MEDS: ASPIRIN EC 81 MG TABLET PO ×2 (09:18→21:29)
[2025-01-27] MEDS: hydroCHLOROthiazide 25 MG TABLET PO (09:19)
[2025-01-27] MEDS: allopurinoL 100 MG TABLET PO (09:19)
[2025-01-27] MEDS: ESCITALOPRAM 10 MG TABLET 20 MG PO (09:19)
[2025-01-27] MEDS: DOCUSATE 100 MG CAPSULE PO ×2 (09:19→21:31)
[2025-01-27] MEDS: PANTOPRAZOLE DR 20 MG TABLET PO ×2 (09:19→21:30)
[2025-01-27] MEDS: SODIUM CHLORIDE 0.9% FLUSH 10 ML IV ×2 (09:45→21:40)
[2025-01-27] MEDS: ACETAMINOPHEN 325 MG TABLET 650 MG PO ×3 (09:45→21:31)
--- NOTE | 2025-01-27 10:22 | PT-IP ANOTE ---
PT reviews chart. Pt with decreasing Hgb to 7.7. Checked in on pt who reports she is very light-headed when she gets up. Will hold PT this date.
[2025-01-27] MEDS: CYANOCOBALAMIN (VITAMIN B-12) 500 MCG TABLET PO (13:04)
[2025-01-27] MEDS: HYDROMORPHONE 0.5 MG INJ IV ×2 (14:26→23:20)
--- NOTE | 2025-01-27 14:39 | CM.DPC ---
DCP SNF Planning Cont: Per Ortho MD, pt making progress and preference from Ortho standpoint is also [facility] at d/c as most supportive for patient and requesting SW to call [facility] first thing in AM to see if they can accept pt Tue or . [facility] and [facility] admissions both confirm they can accept pt at d/c if bed still needed. SW met bedside with pt and updated on above and she confirms her preference remains [facility] but if they do not have a bed in the next 1-2 days then pt agreeable to choosing between [facility] and [facility] for d/c by Tuesday. Plan: SW to follow for calling [facility] first thing tomorrow Mon AM to determine if they have a bed Tue or for accepting patient vs need for [facility] or [facility]. Mary Bryant, CONSTRUCTION CONTR[employer]ER
[2025-01-27 17:14] LABS: Add Manual Diff / Slide Review NO; Basophils Absolute Auto 100 /uL (0-100); Basophils Percent Auto 1.3 % (0-2); Eosinophils Absolute Auto 200 /uL (0-450); Hematocrit 24.6 % (36-46); Hemoglobin 8.1 g/dL (12.0-16.0); Lymphocytes Absolute Auto 2500 /uL (1100-4500); Lymphocytes Percent Auto 29.3 % (25-40); Mean Corpuscular HGB Conc 32.8 % (30-36); Mean Corpuscular Hemoglobin 27.2 PG (26-34); Mean Corpuscular Volume 82.9 fL (80-100); Monocytes Absolute Auto 400 /uL (0-900); Monocytes Percent Auto 5.2 % (3-14); Neutrophils Absolute Auto 5400 /uL (1500-7000); Neutrophils Percent Auto 62.2 % (50-75); Platelet Count 277 X10^3/uL (150-400); Red Blood Cell Count 2.96 X10^6/uL (4.0-5.2); Red Cell Distribution Width 22.9 % (11.6-14.8); White Blood Cell Count 8.7 X10^3/uL (4.5-11.0)
[2025-01-27 17:54] LABS: Anisocytosis 2+
[2025-01-27 17:57] LABS: Microcytosis 1+
[2025-01-28] VITALS (10 sets, daily range): BP systolic 113–134; BP diastolic 58–78; PULSE 62–92; RESP 12–18; TEMP 36.4–37.2; O2SAT 95–97
[2025-01-28] MEDS: OXYCODONE IR 5 MG TABLET PO ×6 (01:09→21:21)
[2025-01-28] MEDS: cefTRIAXone 2,000 MG in SODIUM CHLORIDE 0.9% 100 ML 200 MG IV (01:10)
[2025-01-28] MEDS: CYCLOBENZAPRINE 10 MG TABLET PO ×2 (01:12→23:27)
[2025-01-28 05:41] LABS: Hemoglobin 7.3 g/dL (12.0-16.0)
--- NOTE | 2025-01-28 07:20 | PT-IP ANOTE ---
PT held PT last date d/t decreasing Hgb and pt reporting being light-headed when she got up. This a.m., Hgb is even lower at 7.3. Will currently hold PT and monitor to see if she is appropriate for skilled PT later this date.
[2025-01-28] MEDS: ESCITALOPRAM 10 MG TABLET 20 MG PO (08:26)
[2025-01-28] MEDS: estradioL 1 MG TABLET 2 MG PO (08:26)
[2025-01-28] MEDS: DOCUSATE 100 MG CAPSULE PO ×2 (08:27→21:22)
[2025-01-28] MEDS: GABAPENTIN 400 MG CAPSULE 800 MG PO ×3 (08:27→21:22)
[2025-01-28] MEDS: FERROUS SULFATE 325 MG TABLET PO ×2 (08:27→21:22)
[2025-01-28] MEDS: CYANOCOBALAMIN (VITAMIN B-12) 500 MCG TABLET PO (08:27)
[2025-01-28] MEDS: ASPIRIN EC 81 MG TABLET PO ×2 (08:27→21:22)
[2025-01-28] MEDS: PANTOPRAZOLE DR 20 MG TABLET PO ×2 (08:27→21:22)
[2025-01-28] MEDS: allopurinoL 100 MG TABLET PO (08:27)
[2025-01-28] MEDS: ACETAMINOPHEN 325 MG TABLET 650 MG PO ×3 (08:28→21:22)
--- NOTE | 2025-01-28 09:00 | CM.DPC ---
Addendum entered by TEJA Rod 01/28/25 11:49: ADD: Per [facility], tentatively scheduled transport for 1100 tomorrow 01/29/25. Addendum entered by TEJA Rod 01/28/25 11:35: ADD: Per [facility]UM[facility], pt's H&H still not as high as preferred after her transfusion and still somewhat symptomatic and not stable for d/c today but hopeful for d/c tomorrow. SALUD updated Estefani at [facility] and they will accept her tomorrow if stable, no time for transport determined yet. BF Original Note: DCP SNF Cont: SW called [facility] admissions first thing this AM and resent referral as they could not find it. They reviewed and confirm that they can accept the patient today with transport around [id number]. SALUD met bedside with pt and updated on above and she is very thankful for acceptance at [facility] but her H&H was lower and she will be getting one unit of blood and unsure if she will be medically stable to d/c yet today or not. SALUD sent msg to [facility] updating on acceptance at [facility] and awaiting determination if pt will be stable for d/c today or not. TEJA Rod
[2025-01-28 09:51] LABS: HEMOLYSIS < 15 (0-50); Potassium 3.7 mmol/L (3.4-5.1)
[2025-01-28] MEDS: SODIUM CHLORIDE 0.9% FLUSH 10 ML IV (10:00)
--- NOTE | 2025-01-28 10:08 | PT-IP ANOTE ---
PT discussed in rounds and she is getting PRBCs and then tentative d/c to SNF in early afternoon. PT checks on pt who is currently getting blood.
--- NOTE | 2025-01-28 10:08 | OT.IPNOTE ---
Per rounds, pt is getting blood this AM and is planned for d/c to SNF at 1230. Will hold at this time and continue to follow.
--- NOTE | 2025-01-28 11:59 | PM.PNPO.1 ---
Subjective Subjective Interval history: Alyssa is a pleasant 59 year old female who is POD#4 s/p left total hip arthroplasty revision with placement of a antibiotic spacer, extensive debridement by Dr. Monsivais. Today patient reports her pain is better controlled now that her Oxy is scheduled and she also got some cyclobenzaprine. She still states she feels unwell, she expresses some anxiety about her recovery, the amount of support she still requires and that she still dosen't feel good. She says she had a headache this morning but it resovled once she got some pain medicine. She has been working with PT as much as possible but she reports still feeling lightheaded with sitting up, getting to and from the bathroom. She has not been receiving blood pressure medications since surgery. Most recent H&H was 7.3 and 22, she is currently receiving 1 unit PRBC. She got 2 units PRBC on the day of surgery d/t significant intra-op blood loss. She expresses anxiety about the instability and disconcerting feeling of popping sensation and sounds coming from her hip when she moves. She has been urinating w/o issue, has had a BM. She had her picc placed already, planing for 6 weeks of IV abx. She does live at home w/ her who can provide some post-op support but is aware she will need SNF rehab initially d/t significantly limited mobility post-op. She has wheelchair and walker at home already. Exam Vital Signs (past 8 hours): - 01/28/25 05:37 01/28/25 08:00 01/28/25 09:57 Temperature 97.8 F 97.5 F L 98.4 F Pulse Rate 66 75 73 Respiratory Rate 16 14 18 Blood Pressure 128/58 L 124/65 118/61 Pulse Oximetry 96 95 Oxygen Flow Rate 0 0 01/28/25 10:05 Temperature 98.4 F Pulse Rate 73 Respiratory Rate 18 Blood Pressure 118/61 Pulse Oximetry Oxygen Flow Rate Fraction of Inspired Oxygen 28 SaO2/FiO2 Ratio 342 Oxygen Delivery Method CPAP Oxygen Flow Rate 0 Narrative Exam Narrative: Patient lying comfortably in bed during examination today. Alert and oriented. Post-surgical ANA dressing is clean, dry and intact over the left posterior hip, no drainage. 5/5 strength w/ DF, PF, EHL. Knee flexion and extension intact. Trace sign of hip flexion. Calf soft and compressible, SCDs in place. SILT throughout the LLE. Objective Labs 01/28/25 05:20 01/28/25 05:00 Labs: Laboratory Results - last 24 hr 01/24/25 01/27/25 01/28/25 10:04 17:03 05:00 WBC 8.7 RBC 2.96 L Hgb 8.1 L Hct 24.6 L MCV 82.9 MCH 27.2 MCHC 32.8 RDW 22.9 H Plt Count 277 Neut % (Auto) 62.2 Lymph % (Auto) 29.3 [place] % (Auto) 5.2 Eos % (Auto) 2.0 Baso % (Auto) 1.3 Neut # (Auto) 5400 Lymph # (Auto) 2500 [place] # (Auto) 400 Eos # (Auto) 200 Baso # (Auto) 100 RBC Morphology See below Anisocytosis 2+ H Microcytosis 1+ H Potassium 3.7 Blood Type Antibody Screen Crossmatch See Detail 01/28/25 01/28/25 05:20 08:00 WBC RBC Hgb 7.3 L Hct 22.0 L MCV MCH MCHC RDW Plt Count Neut % (Auto) Lymph % (Auto) [place] % (Auto) Eos % (Auto) Baso % (Auto) Neut # (Auto) Lymph # (Auto) [place] # (Auto) Eos # (Auto) Baso # (Auto) RBC Morphology Anisocytosis Microcytosis Potassium Blood Type O Positive Antibody Screen Negative Crossmatch See Detail [facility] Medical History (Updated 01/25/25 @ 13:45 by Jen Lunsford PA-C) Iron deficiency anemia History of COVID-19 Osteoarthritis Pancreatitis Esophageal dilatation History of postoperative complication of surgical procedure History of intraoperative complication of surgical procedure Recurrent major depression resistant to treatment Hypersomnia Obstructive sleep apnea of adult Snoring Finger pain, right Chronic pain of left elbow Chronic right shoulder pain Essential hypertension Generalized headaches (2010) PTSD (post-traumatic stress disorder) (2010) Depression (2010) Anxiety (2010) Fibromyalgia (~2013) Ovarian cyst (1999) Genital warts (1989) Hypertension (2010) Surgical History (Updated 01/25/25 @ 13:42 by Jen Lunsford PA-C) History of total left hip replacement (08/09/24) Hx of colonoscopy (01/09/20) H/O gastric sleeve (~2020) Hx of cholecystectomy Hx of hernia repair Hx of oophorectomy (2010) History of Status post repair of recurrent ventral hernia Status post repair of ventral hernia History of major abdominal surgery (2010) History of intestinal surgery (Unknown) S/P hysterectomy (Unknown) Family History Father No problems noted. Mother Cancer Social History marital status: details: to [place] household members: spouse and children lives independently: Yes caregiver/support person: No housing: house pets and animals: Yes education level: college Smoking Status: Former smoker alcohol intake: never substance use type: does not use Assessment & Plan Post-op Assessment and plan (1) Prosthetic hip infection: Assessment and Plan narrative: 1) PICC placed POD#1. On ceftriaxone 2g daily per [facility] ID. Will need IV abx for a minimum of 6 weeks. Awaiting BMP results for today still. 2) Gram stain negative for organisms, aerobic final no growth preliminarily, anaerobic preliminary no growth on all specimens sent. 3) Specimens also sent for PCR, which will take several days to result. (2) S/P revision of total hip: Assessment and Plan narrative: 1) Pt has a h/o gastric bypass and should NOT receive NSAIDs. Diclofenac and IBPN discontinued. 2) Despite above, ok to remain on ASA 81mg BID for VTE prophylaxis. 3) Touchdown weightbearing only to LLE w/ posterior hip precautions for 6 weeks. 4) Will need SNF placement prior to going home. CM has been working on placement, patient wound prefer [facility] in if possible. Possible transport tommorow. 5) Encouraged hydration, ordered clear ensure for patient. 6) Adjusted patient pain medication for Oxycodone to be scheduled for improved pain control, IV Dilaudid still PRN. Tylenol and Gabapentin is also scheduled. (3) Acute on chronic blood loss anemia: Assessment and Plan narrative: Acute anemia d/t blood loss during extensive surgery. She received 2 units PRBCs in surgery, and one unit PRBC today. Will continue to monitor H&H with daily CBC as well as CMP d/t antibiotics. Postoperative Procedures: Procedures Operation Date: 01/24/25 11:45 Actual Procedure Side Surgeon p Revision, total arthroplasty, hip, stage 1 (left). Revision, total arthroplasty, hip, both components (left) Left Renita Monsivais MD Postoperative day: 4
--- NOTE | 2025-01-28 13:23 | OT.IP.TRT ---
Current Diagnoses Acute posthemorrhagic anemia (01/24/25) Infection and inflammatory reaction due to other internal joint prosthesis, initial encounter (01/24/25) Infection and inflammatory reaction due to other internal joint prosthesis, subsequent encounter (01/24/25) Presence of left artificial hip joint (01/24/25) Presence of unspecified artificial hip joint (01/24/25) Surgery Performed Operation Date: 01/24/25 11:45 Actual Procedures p Revision, total arthroplasty, hip, stage 1 (left). Revision, total arthroplasty, hip, both components (left)(Left) - Renita Monsivais MD Occupational Therapy Treatment Note M2 OT-IP Current Condition Start: 01/25/25 12:10 Freq: Status: Active Protocol: Document 01/25/25 12:10 CCC (Rec: 01/25/25 12:22 CCC [id number]) Occupational Therapy Current Condition Current Condition Evaluation Date 01/25/25 Treatment Diagnosis S/P L JUAN revision and placement of antibiotic spacer Diagnosis Onset Date 01/25/24 Post Operative Precautions Posterior Hip Precautions No Hip Flexion > 90 degrees,No Hip Internal Rotation,No Hip Adduction Weight Bearing Status Weight Bearing Status Touch Down Weight Bearing Allowed Weight Bearing Amount (enter % TDWT for LLE or #) (%) M3 OT- IP Subjective and Pain Start: 01/25/25 12:10 Freq: Status: Active Protocol: Document 01/28/25 13:24 CGR (Rec: 01/28/25 13:35 CGR [id number]) OT- Subjective Occupational Therapy Visit Type Type Treatment Note Visit Start Time 13:00 Visit Stop Time 13:23 Notes Partial co-treat with P.T. Occupational Therapy Visit Comments Patient Comments Pt just returned from toilet but is agreeable to orthostatic BP measurements as pt continues to c/o dizziness . OT Pain Assessment Pain When Pain Assessed During Mobility Pain Present Pain Present Pain Reported Location Left Hip Intensity 8 Scale Used Numeric (0 - 10) Management Techniques Modification of Treatment,Re- positioning,Timing of Activity with Medications M4 OT- IP ADL's Start: 01/25/25 12:10 Freq: Status: Active Protocol: Document 01/28/25 13:24 CGR (Rec: 01/28/25 13:35 CGR [id number]) OT [id number] Comments OT Self-Feeding Comments not meal time OT ADL-Grooming General Evaluation Grooming Ability Independent Areas Needing Assistance Face Washing Comments OT Grooming Comments standing and supine in bed OT ADL-Oral Care Comments Oral Care Comments not performed OT ADL-Dressing General Eval Lower Body Dressing Ability Total Assistance Areas Needing Assistance Socks OT ADL-Toileting Comments OT Toileting Comments pt performed just prior to this session. OT ADL-Bathing Comments OT Bathing Comments not performed, not appropriate given pt's pain level. M5 OT- IP IADL's Start: 01/25/25 12:10 Freq: Status: Active Protocol: Document 01/25/25 12:10 [facility] (Rec: 01/25/25 12:22 [facility] [id number]) OT-Instrumental Activities of Daily Living Deficits IADL Deficits Identified Deficits Home Safety Awareness Awareness of Need for Assistance at Home Good Awareness Home Safety Comments Pt is very groggy and best to have assist for needs. Medication Management Medication Management Comments Pt to have asisst at this time . Money Management Money Management Comments Best to have assist at this time. Meal Preparation Meal Preparation Caregiver Provides Assist Cart Driver Cart Driver Caregiver Provides Assist M6 OT- IP Functional Cognition Start: 01/25/25 12:10 Freq: Status: Active Protocol: Document 01/25/25 12:10 [facility] (Rec: 01/25/25 12:22 [facility] [id number]) Cognitive Factors Limiting Selfcare Function Cognitive Ability Level of Alertness Confusional State Patient Orientation Name,Place,Situation Attention Span Ability Capable of Focused Attention, Capable of Sustained Attention Ability to Follow Commands Able to Follow One Step Commands with Increased Time, Able to Follow One Step Commands with Repetition Memory Description Short Term Impaired Safety Awareness Decreased Recall of Precautions Cognitive Comments Cognitive Assessment Comments Pt a bit groggy and not able to recall her hip precautions at this time and needign continuous education to help remind her to follow for ADL and mobility needs. OT- Vision and Hearing OT- Vision Assessment Vision History Cataracts Visual Acuity Glasses All The Time Visual Attentiveness WFL M7 OT- IP Mobility and Balance Start: 01/25/25 12:10 Freq: Status: Active Protocol: Document 01/28/25 13:24 CGR (Rec: 01/28/25 13:35 CGR [id number]) OT- Bed Mobility Assessment Supine to Sit Supine to Sit Assist Minimal Assistance Sit to Supine Sit to Supine Assist Minimal Assistance Scooting Scooting to Edge of Bed Minimal Assistance OT-Transfer Assessment Sit to and From Stand Sit to and from Stand Minimal Assistance,1 Person Assistance Transfers Transfer Ability Minimal Assistance,1 Person Assistance Technique Transfer Destination Bed Devices Transfer Assistive Devices Gait Belt,Front Wheeled Walker Comments Mobility Comments standing at EOB for BPs OT- Gait Assessment Comments Gait Ability Comments not performed OT- Balance Assessment Sitting Balance and Reactions Static Sitting Balance Ability Good Dynamic Sitting Balance Ability Good M8 OT- IP Objective Assessments Start: 01/25/25 12:10 Freq: Status: Active Protocol: Document 01/25/25 12:10 CCC (Rec: 01/25/25 12:22 CCC [id number]) OT Gross Range of Motion Upper Extremity Range of Motion Assessment Within Functional Limits OT Strength Upper Extremity Strength Assessment Within Functional Limits M9 OT- IP Assessment and Plan Start: 01/25/25 12:10 Freq: Status: Active Protocol: Document 01/28/25 13:24 CGR (Rec: 01/28/25 13:35 CGR [id number]) OT Summary Assessment and Plan Potential Rehabilitation Potential Excellent Analytic Complexity at Evaluation Low Summary OT Impairments Pain,Strength,Balance, Functional Mobility,Dressing, Toileting,Bathing,Toilet Transfers,Shower Transfers, Activity Tolerance Progress Towards Goals Slow Progress due to Medical Issues,Slow Progress due to Activity Tolerance Assessment Summary Pt declined further activity as she just returned from bathroom but was agreeable to having her BP tested d/t continued complaints of dizziness upon standing. BPs as follows: supine: 122/77 78 standin/75 104 139/70 99 123/88 96 150/79 94 supine: 142/65 92 Pt washed face while standing d/t tears with mobility from pain. Pt with good participation despite pain. Pt is a good candidate for SNF. Goals Self-Feeding Goal Independent Grooming Goal Independent Dressing Goal Independent,Compressed Air Pile Driver Operator,Sock Aid Toileting Goal Independent Bathing Goal Minimal Assistance Toilet Transfer Goal Independent Shower Transfer Goal Contact Guard Assistance Days to Meet Goals 7 Frequency of Treatment Other frequency 5x/week Treatment Plan OT Treatment Plan ADL Training,Functional Cognition Training,Functional Mobility,Patient/Family Education,Discharge Planning Other Treatment Recommendations and Next Transfer with [facility]GAx[facility] to the [facility] [place] Treatment Focus with FWW. Discharge Recommendations OT Discharge Recommendations Home with / Assist Available Home Equipment Needs C,FWW Transportation Needs at Discharge Private Vehicle
[2025-01-28] MEDS: ONDANSETRON 4 MG/2 ML INJ IV (13:26)
[2025-01-28] MEDS: HYDROMORPHONE 0.5 MG INJ IV ×2 (13:29→23:27)
--- NOTE | 2025-01-28 13:31 | PT.IPTN ---
Current Diagnoses Acute posthemorrhagic anemia (01/24/25) Infection and inflammatory reaction due to other internal joint prosthesis, initial encounter (01/24/25) Infection and inflammatory reaction due to other internal joint prosthesis, subsequent encounter (01/24/25) Presence of left artificial hip joint (01/24/25) Presence of unspecified artificial hip joint (01/24/25) Surgery Performed Operation Date: 01/24/25 11:45 Actual Procedures p Revision, total arthroplasty, hip, stage 1 (left). Revision, total arthroplasty, hip, both components (left)(Left) - Renita Monsivais MD Physical Therapy Treatment Note M2 PT-IP Current Condition Start: 01/25/25 11:41 Freq: NEEDED Status: Active Protocol: Document 01/25/25 09:05 AB (Rec: 01/25/25 12:19 AB [id number]) Physical Therapy Current Condition Current Condition Evaluation Date 01/25/25 Treatment Diagnosis s/p L JUAN revision w/ implant of antibiotic spacer; difficulty in walking Onset Date 01/24/25 M3 PT-IP Subjective Start: 01/25/25 11:41 Freq: NEEDED Status: Active Protocol: Document 01/28/25 12:56 MB (Rec: 01/28/25 13:31 MB [id number]) Subjective Physical Therapy Visit Type Type Treatment Note Visit Start Time 12:56 Visit Stop Time 13:19 Number of BRANCH OFFICER Visits 0 Physical Therapy Visit Comments Patient Comments Pt states she just got back to bed and was very light-headed and felt she might pass out when getting to BR, is hoping to nap. Therapy Pain Assessment Pain When Pain Assessed During Mobility Pain Present Pain Present Pain Reported Location Left Hip Intensity 7 Scale Used Numeric (0 - 10) M4 PT-IP Mobility and Gait Start: 01/25/25 11:41 Freq: NEEDED Status: Active Protocol: Document 01/28/25 12:56 MB (Rec: 01/28/25 13:31 MB [id number]) PT-Bed Mobility Assessment Supine to Sit Supine to Sit Minimal Assistance,Bedrails Sit to Supine Sit to Supine Minimal Assistance,Bedrails Scooting Scooting to Edge of Bed Minimal Assistance Scooting Up and Down in Bed Minimal Assistance PT-Transfer Assessment Sit to and From Stand Sit to and from Stand Minimal Assistance,1 Person Assistance,Use of Upper Extremities Equipment Transfer Assistive Device Gait Belt,Front Wheeled Walker Orthotic/Prosthetic Devices or Brace: No Comments Mobility Comments Assistance required is for LLE only, assistance holding up, and pt does over 75% work of bed mobility. Orthostatic/BP assessment with numbers in assessment section and BP is volatile today. PT-Balance Assessment Sitting Balance and Reactions Static Sitting Balance Ability Good Dynamic Sitting Balance Ability Fair Standing Balance and Reactions Static Standing Balance Ability Fair Dynamic Standing Balance Ability Fair Device Used RW Comments Other Balance Tests/Deviations/Treatment Pt weight shifting to right : leg and use of RW with checking BP several times. M5 PT-IP Objective Assessments Start: 01/25/25 11:41 Freq: NEEDED Status: Active Protocol: Document 01/25/25 09:05 AB (Rec: 01/25/25 12:19 AB [id number]) Orientation Orientation/Cognition Level of Alertness Alert Orientation Name,Place,Situation Safety Awareness Decreased Safety Awareness Memory Description Short Term Impaired Gross Range of Motion Lower Extremity ROM Assessment Within Functional Limits Strength Lower Extremity Strength Assessment Left Impaired Sensation Assessment Sensation Gross Sensation WNL Muscle Tone Muscle Tone WNL Yes M6 PT-IP Treatment Start: 01/25/25 11:41 Freq: NEEDED Status: Active Protocol: Document 01/28/25 12:56 MB (Rec: 01/28/25 13:31 MB [id number]) Physical Therapy Treatment Other Treatments Other Treatment Performed Reviewed posterior hip precautions and pt verbalizes 2/3 precautions M7 PT-IP Assessment and Plan Start: 01/25/25 11:41 Freq: NEEDED Status: Active Protocol: Document 01/28/25 12:56 MB (Rec: 01/28/25 13:31 MB [id number]) PT Summary Assessment and Plan Potential Rehabilitation Potential Fair Status of Condition at Evaluation Evolving Summary Impairments Pain,ROM,Strength,Balance, Coordination,Bed Mobility, Transfers,Gait,Activity Tolerance Progress Towards Goals Slow Progress due to Pain,Slow Progress due to Activity Tolerance Assessment Summary Pt with ongoing c/o light- headedness when getting up to toilet with nsg. She finished getting PRBCs this morning. BP and HR assessment in LUE over 5': supine 122/77, 78; standing 115/75, 104; standing 1' 139/70, 99; standing 2' 123/88, 96; standing 3' 150/79 , 94; sitting 142/65, 92. Pt very tearful and not breathing well and cues to breathe better. Pt requests to return to supine. Goals Bed Mobility Goal Standby Assistance Transfer Goal Standby Assistance,Front Wheeled Walker Gait Goal Standby Assistance,Front Wheel Walker Gait Distance 25 Other Goals improved bed mobility, transfer and ambulation using FWW ~50 ft mod I Days to Meet Goals 10 Frequency of Treatment Frequency Of Treatment Once a Day Treatment Plan Physical Therapy Treatment Plan Bed Mobility Training,Transfer Training,Gait Training, Therapeutic Exercise,Balance Retraining,Post Op Education, Discharge Planning,Hot or Cold Pack,Neuromuscular Re-ed, Coordination Retraining,Manual Therapy Precautions Posterior Hip Precautions No Hip Flexion > 90 degrees,No Hip Internal Rotation,No Hip Adduction Weight Bearing Status Weight Bearing Status Touch Down Weight Bearing Allowed Weight Bearing Amount (enter % LLE TTWB or #) (%) Recommendations To Nursing Amount of Assist Needed 2 Person Assist Discharge Recommendations PT Discharge Recommendations SNF Rehab Transportation Needs at Discharge Wheelchair/Cabulance - PT assist x1-2
[2025-01-29] MEDS: cefTRIAXone 2,000 MG in SODIUM CHLORIDE 0.9% 100 ML 200 MG IV (01:45)
[2025-01-29] MEDS: OXYCODONE IR 5 MG TABLET PO ×3 (01:45→09:27)
[2025-01-29 04:00] VITALS: BP 124/61; PULSE 71; RESP 16; TEMP 36.5; O2SAT 95
[2025-01-29 05:52] LABS: Add Manual Diff / Slide Review NO; Basophils Absolute Auto 0 /uL (0-100); Basophils Percent Auto 0.2 % (0-2); Eosinophils Absolute Auto 300 /uL (0-450); Eosinophils Percent Auto 4.5 % (2-4); Hematocrit 24.9 % (36-46); Hemoglobin 8.1 g/dL (12.0-16.0); Lymphocytes Absolute Auto 2200 /uL (1100-4500); Lymphocytes Percent Auto 34.3 % (25-40); Mean Corpuscular HGB Conc 32.7 % (30-36); Mean Corpuscular Hemoglobin 27.6 PG (26-34); Mean Corpuscular Volume 84.3 fL (80-100); Monocytes Absolute Auto 400 /uL (0-900); Monocytes Percent Auto 6.9 % (3-14); Neutrophils Absolute Auto 3500 /uL (1500-7000); Neutrophils Percent Auto 54.1 % (50-75); Platelet Count 298 X10^3/uL (150-400); Red Blood Cell Count 2.95 X10^6/uL (4.0-5.2); Red Cell Distribution Width 21.7 % (11.6-14.8); White Blood Cell Count 6.5 X10^3/uL (4.5-11.0)
[2025-01-29 06:02] LABS: Alanine Aminotransferase 23 IU/L (<35); Albumin 2.9 g/dL (3.5-5.0); Alkaline Phosphatase 53 U/L (38-126); Aspartate Aminotransferase 34 IU/L (14-36); BUN Creatinine Ratio 20.3 (6-22); Bilirubin Total 0.3 mg/dL (0.2-1.3); Blood Urea Nitrogen 13 mg/dL (7-17); Calcium 8.3 mg/dL (8.4-10.2); Carbon Dioxide 32 mmol/L (22-32); Chloride 101 mmol/L (98-107); Estimated Glomerular Filt Rate > 60 mL/min (>60); Glucose 101 mg/dL (70-100); HEMOLYSIS < 15 (0-50); Potassium 4.1 mmol/L (3.4-5.1); Sodium 137 mmol/L (137-145); Total Protein 5.9 g/dL (6.3-8.2)
[2025-01-29 06:16] LABS: Anisocytosis 2+; Macrocytosis 1+; Microcytosis 1+; Platelet Estimate Adequate on smear
[2025-01-29 08:00] VITALS: BP 123/76; PULSE 70; RESP 14; TEMP 36.4; O2SAT 96
[2025-01-29] MEDS: ACETAMINOPHEN 325 MG TABLET 650 MG PO (09:25)
[2025-01-29] MEDS: allopurinoL 100 MG TABLET PO (09:25)
[2025-01-29] MEDS: ASPIRIN EC 81 MG TABLET PO (09:25)
[2025-01-29] MEDS: FERROUS SULFATE 325 MG TABLET PO (09:26)
[2025-01-29] MEDS: CYANOCOBALAMIN (VITAMIN B-12) 500 MCG TABLET PO (09:26)
[2025-01-29] MEDS: GABAPENTIN 400 MG CAPSULE 800 MG PO (09:26)
[2025-01-29] MEDS: estradioL 1 MG TABLET 2 MG PO (09:26)
[2025-01-29] MEDS: ESCITALOPRAM 10 MG TABLET 20 MG PO (09:26)
[2025-01-29] MEDS: DOCUSATE 100 MG CAPSULE PO (09:26)
[2025-01-29] MEDS: PANTOPRAZOLE DR 20 MG TABLET PO (09:27)
[2025-01-29] MEDS: SODIUM CHLORIDE 0.9% FLUSH 10 ML IV (09:28)
--- NOTE | 2025-01-29 09:30 | OT.IP.TRT ---
Current Diagnoses Acute posthemorrhagic anemia (01/24/25) Infection and inflammatory reaction due to other internal joint prosthesis, initial encounter (01/24/25) Infection and inflammatory reaction due to other internal joint prosthesis, subsequent encounter (01/24/25) Presence of left artificial hip joint (01/24/25) Presence of unspecified artificial hip joint (01/24/25) Surgery Performed Operation Date: 01/24/25 11:45 Actual Procedures p Revision, total arthroplasty, hip, stage 1 (left). Revision, total arthroplasty, hip, both components (left)(Left) - Renita Monsivais MD Occupational Therapy Treatment Note M2 OT-IP Current Condition Start: 01/25/25 12:10 Freq: Status: Active Protocol: Document 01/25/25 12:10 [facility] (Rec: 01/25/25 12:22 [facility] [id number]) Occupational Therapy Current Condition Current Condition Evaluation Date 01/25/25 Treatment Diagnosis S/P L JUAN revision and placement of antibiotic spacer Diagnosis Onset Date 01/25/24 Post Operative Precautions Posterior Hip Precautions No Hip Flexion > 90 degrees,No Hip Internal Rotation,No Hip Adduction Weight Bearing Status Weight Bearing Status Touch Down Weight Bearing Allowed Weight Bearing Amount (enter % TDWT for LLE or #) (%) M3 OT- IP Subjective and Pain Start: 01/25/25 12:10 Freq: Status: Active Protocol: Document 01/29/25 09:30 [facility] (Rec: 01/29/25 09:38 [facility] [id number]) OT- Subjective Occupational Therapy Visit Type Type Treatment Note Visit Start Time 09:06 Visit Stop Time 09:30 Occupational Therapy Visit Comments Patient Comments Pt just getting out of the shower with nursing aid. Pt not wanting to get up again and agreed to go over posterior precautions and do oral care and grooming needs. Patient/Caregiver Goals TO get better. OT Pain Assessment Pain When Pain Assessed At Rest Pain Present Pain Present Pain Reported Location Left Hip Intensity 5 Scale Used Numeric (0 - 10) M4 OT- IP ADL's Start: 01/25/25 12:10 Freq: Status: Active Protocol: Document 01/29/25 09:30 [facility] (Rec: 01/29/25 09:38 [facility] [id number]) OT [id number] Comments OT Self-Feeding Comments not meal time OT ADL-Grooming General Evaluation Grooming Ability Independent Comments OT Grooming Comments while seated in the recliner OT ADL-Oral Care General Eval Oral Care Ability Independent OT ADL-Dressing General Eval Lower Body Dressing Ability Total Assistance Areas Needing Assistance Socks OT ADL-Toileting Comments OT Toileting Comments not havin to go OT ADL-Bathing Comments OT Bathing Comments Nursing aid just completed showering with pt. M5 OT- IP IADL's Start: 01/25/25 12:10 Freq: Status: Active Protocol: Document 01/25/25 12:10 [facility] (Rec: 01/25/25 12:22 [facility] [id number]) OT-Instrumental Activities of Daily Living Deficits IADL Deficits Identified Deficits Home Safety Awareness Awareness of Need for Assistance at Home Good Awareness Home Safety Comments Pt is very groggy and best to have assist for needs. Medication Management Medication Management Comments Pt to have assist at this time . Money Management Money Management Comments Best to have assist at this time. Meal Preparation Meal Preparation Caregiver Provides Assist Cloth Folder Hand Cloth Folder Hand Caregiver Provides Assist M6 OT- IP Functional Cognition Start: 01/25/25 12:10 Freq: Status: Active Protocol: Document 01/29/25 09:30 [facility] (Rec: 01/29/25 09:38 [facility] [id number]) Cognitive Factors Limiting Selfcare Function Cognitive Ability Level of Alertness Alert Safety Awareness No Deficits Noted Cognitive Comments Cognitive Assessment Comments Pt doing much better to recall and incorporate her hip precautions when therapist showing various activities. Pt encouraged to let staff know that it takes her time to remember and follow commands at times. Pt states felt rushed yesterday. Offered to let therapy delivery supervisor know and pt states no. M7 OT- IP Mobility and Balance Start: 01/25/25 12:10 Freq: Status: Active Protocol: Document 01/29/25 09:30 [facility] (Rec: 01/29/25 09:38 [facility] [id number]) OT-Transfer Assessment Transfers Transfer Ability Contact Guard Assistance Technique Transfer Destination Chair Devices Transfer Assistive Devices Gait Belt,Front Wheeled Walker OT- Balance Assessment Sitting Balance and Reactions Static Sitting Balance Ability Good Dynamic Sitting Balance Ability Good M8 OT- IP Objective Assessments Start: 01/25/25 12:10 Freq: Status: Active Protocol: Document 01/25/25 12:10 [facility] (Rec: 01/25/25 12:22 [facility] [id number]) OT Gross Range of Motion Upper Extremity Range of Motion Assessment Within Functional Limits OT Strength Upper Extremity Strength Assessment Within Functional Limits M9 OT- IP Assessment and Plan Start: 01/25/25 12:10 Freq: Status: Active Protocol: Document 01/29/25 09:30 [facility] (Rec: 01/29/25 09:38 [facility] [id number]) OT Summary Assessment and Plan Potential Rehabilitation Potential Excellent Analytic Complexity at Evaluation Low Summary OT Impairments Pain,Strength,Balance, Functional Mobility,Dressing, Toileting,Bathing,Toilet Transfers,Shower Transfers, Activity Tolerance Progress Towards Goals Progressing Toward Goals Assessment Summary Pt doing a good job to recall and follow her hip precautions now. Pt going to skilled rehab. Pt states wants to be able to feel more confident when backing up with the FWW. Goals Self-Feeding Goal Independent Grooming Goal Independent Dressing Goal Independent,Manager Of Training,Sock Aid Toileting Goal Independent Bathing Goal Minimal Assistance Toilet Transfer Goal Independent Shower Transfer Goal Contact Guard Assistance Days to Meet Goals 7 Frequency of Treatment Other frequency 5x/week Treatment Plan OT Treatment Plan ADL Training,Functional Cognition Training,Functional Mobility,Patient/Family Education,Discharge Planning Discharge Recommendations OT Discharge Recommendations SNF Rehab Transportation Needs at Discharge Private Vehicle,Wheelchair/ Cabulance
[2025-01-29] MEDS: OXYCODONE IR 10 MG TABLET PO (11:03)
--- NOTE | 2025-01-29 11:17 | PC.NURSE ---
Pt alert and oriented, follows commands, asks appropriately for needs. accurately conveys need for pain meds. Surgical site CDI. Discussed plan for day and transfer to [facility] Felix Morin. SHAHEED Lim and Dr. Monsivais checking in with Pt. in to assist with tranfers and belongings. transfer packet organized and given to Transporter. Report to facility RN given. Pt assist to w/c and given over to care of [facility].
--- NOTE | 2025-01-29 12:07 | CM.DPNOTE ---
DCP note GOVERNMENT AFFAIRS MANAGER reviewed EMR Per chart review/ortho PA report, pt cleared to dc to SNF today. Per Estefani at [facility], cleared to accept today transport at 11am. GOVERNMENT AFFAIRS MANAGER gave RN report number/updated NEWSPAPER INSERTER/charger. GOVERNMENT AFFAIRS MANAGER noticed needing 6weeks IV abx, therefore no qualifies for exempt dc. lvms with Jackie MARTINO coordinator to inquire about recs. GOVERNMENT AFFAIRS MANAGER met with pt in room, confirms agreement with plan. pt reports she wants to not be there the full 6 weeks and the plan is to go to SNF for shorter time and then transition to PO abx. wants to be there less than 30 days. After confirming with Etsefani at [facility], will send level 1 hospital exempt PASRR for now and if she stays longer the level 2 will be completed CC Nisreen emailed dc information to Estefani, signed dc summary pending. P: dc to [facility] today at 11am. CM team will continue to follow as needed. TEJA Swann
--- NOTE | 2025-01-29 13:28 | P.DS_ITS ---
History of Present Illness History of Present Illness Chief complaint: Left revision JUAN INPT Narrative: Bri is a pleasant 59 year old female who is POD#5 s/p left total hip arthroplasty revision with placement of a antibiotic spacer, extensive debridement by Dr. Monsivais. Today patient says she is still having a lot of pain but reports her pain is better controlled now that her Oxy is scheduled and she also got some cyclobenzaprine. She still states she feels unwell, she expresses some anxiety about her recovery and the amount of support she still requires. She has been working with PT as much as possible but she reports still feeling slightly lightheaded and fatigued with getting to and from the bathroom. She has not been receiving blood pressure medications since surgery. Most recent H&H was 8.1 and 24.9. She got 2 units PRBC on the day of surgery d/t significant intra-op blood loss as well as an additional unit yesterday. She expresses anxiety about the instability and disconcerting feeling of popping sensation and sounds coming from her hip when she moves. She has been urinating w/o issue, has had a BM. She had her picc placed already, planing for 6 weeks of IV abx. She is followed by ID at [facility]. She does live at home w/ her who can provide some post-op support but is aware she will need SNF rehab initially d/t significantly limited mobility post- op. She has wheelchair and walker at home already. She plans to d/c to SNF today. Operative Date/Time/Diagnoses Date of procedure: 01/24/25 Time of procedure: 13:00 Pre-op diagnosis: Infected left total hip arthroplasty Post-op diagnosis: same Procedure & Clinicians Procedure: Left total hip arthroplasty revision with placement of a antibiotic spacer, extensive debridement Same procedure as scheduled: Yes Indications: The patient has had progressively worsening left hip pain with radiographic changes consistent with arthritis. Non-operative management has failed and the patient has requested total hip replacement. The risks, benefits and alternatives to surgery were discussed with the patient prior to proceeding. Risks discussed included, but were not limited to, failure to relieve pain, leg length discrepancy, dislocation, stiffness, infection, nerve damage, deep venous thrombosis, pulmonary embolism, stroke, coma, heart attack, permanent paralysis and , as well as the potential need for eventual revision of the prosthetic. Surgeon: Renita Monsivais Software Quality Assurance Specialist: Jen Lunsford Anesthesia Type: General and Spinal Operative Notes Findings: Infected left total hip arthroplasty. Adequate stability. Adequate bone Closure Type: primary Specimen(s): other (Multiple cultures from acetabulum, femur synovium and deep canal, PCR) Prosthetic devices, grafts, tissues, transplants, or devices: Prostalac size 42 x 32 acetabular cup, size 1 Prostalac hip stem by 105 mm standard offset, Stimulan antibiotic beads 5 cc, Estimated Blood Loss (mL): 250 Blood products transfused: packed red blood cells (2 units transfused, 2 available) Discharge Providers Provider Date of admission: 01/24/25 09:28 Discharge Date: 01/29/25 Primary care physician: Juanito Johnson MD Consults: 01/24/25 06:00 Consult to Anesthesiology Routine Comment: Consulting Provider: Anesthesiologist Reason for consultation: Regional block for post operative pain control 01/24/25 21:54 Consult to Discharge Planning Routine Comment: Needs IV abx x 6 weeks Consult to Occupational Therapy Evaluate & Treat Comment: Physician Instructions: Evaluate and treat Consult to Physical Therapy Evaluate & Treat Comment: Physician Instructions: post op JUAN protocol Discharge provider: Carina Le PA-C Summary Hospital Course Discharge Diagnosis: Infected left total hip arthroplasty s/p revision with placement of a antibiotic spacer and extensive debridement Hospital Course: Hospital course complicated by significant intraoperative blood loss requiring 3 total units of PRBC intra-op/postoperatively. D/t blood loss patient also had orthostatic hypotension in the post-operative period, her blood pressure medication has been help. She has had significant mobility issues due to extensive nature of the surgery and postoperative limitations, she has difficulty w/ transferring and getting up and out of bed on her own. Exam Vital Signs (past 8 hours): - 01/29/25 08:00 Temperature 97.5 F L Pulse Rate 70 Respiratory Rate 14 Blood Pressure 123/76 Pulse Oximetry 96 Oxygen Flow Rate 0 Fraction of Inspired Oxygen 28 SaO2/FiO2 Ratio 342 Oxygen Delivery Method CPAP Oxygen Flow Rate 0 Narrative Exam Narrative: Patient lying comfortably in bed during examination today. Alert and oriented. Post-surgical ANA dressing is clean, dry and intact over the left posterior hip, no drainage. 5/5 strength w/ DF, PF, EHL. Knee flexion and extension intact. Trace sign of hip flexion. Calf soft and compressible, SCDs in place. SILT throughout the LLE. Objective Labs 01/29/25 05:30 01/29/25 05:30 Labs: Laboratory Results - last 24 hr 01/29/25 05:30 WBC 6.5 RBC 2.95 L Hgb 8.1 L Hct 24.9 L MCV 84.3 MCH 27.6 MCHC 32.7 RDW 21.7 H Plt Count 298 Neut % (Auto) 54.1 Lymph % (Auto) 34.3 [place] % (Auto) 6.9 Eos % (Auto) 4.5 H Baso % (Auto) 0.2 Neut # (Auto) 3500 Lymph # (Auto) 2200 [place] # (Auto) 400 Eos # (Auto) 300 Baso # (Auto) 0 Platelet Estimate Adequate on smear RBC Morphology See below Anisocytosis 2+ H Microcytosis 1+ H Macrocytosis 1+ H Sodium 137 Potassium 4.1 Chloride 101 Carbon Dioxide 32 BUN 13 Creatinine 0.64 Estimated GFR > 60 BUN/Creatinine Ratio 20.3 Glucose 101 H Calcium 8.3 L Total Bilirubin 0.3 AST 34 ALT 23 Alkaline Phosphatase 53 Total Protein 5.9 L Albumin 2.9 L Globulin 3.0 Albumin/Globulin Ratio 1.0 FORMERLY [facility], 1928–1983 Medical History (Updated 01/25/25 @ 13:45 by Jen Lunsford PA-C) Iron deficiency anemia History of COVID-19 Osteoarthritis Pancreatitis Esophageal dilatation History of postoperative complication of surgical procedure History of intraoperative complication of surgical procedure Recurrent major depression resistant to treatment Hypersomnia Obstructive sleep apnea of adult Snoring Finger pain, right Chronic pain of left elbow Chronic right shoulder pain Essential hypertension Generalized headaches (2010) PTSD (post-traumatic stress disorder) (2010) Depression (2010) Anxiety (2010) Fibromyalgia (~2013) Ovarian cyst (1999) Genital warts (1989) Hypertension (2010) Surgical History (Updated 01/25/25 @ 13:42 by Jen Lunsford PA-C) History of total left hip replacement (08/09/24) Hx of colonoscopy (01/09/20) H/O gastric sleeve (~2020) Hx of cholecystectomy Hx of hernia repair Hx of oophorectomy (2010) History of Status post repair of recurrent ventral hernia Status post repair of ventral hernia History of major abdominal surgery (2010) History of intestinal surgery (Unknown) S/P hysterectomy (Unknown) Family History Father No problems noted. Mother Cancer Social History marital status: details: to [place] household members: spouse and children lives independently: Yes caregiver/support person: No housing: house pets and animals: Yes education level: college Smoking Status: Former smoker alcohol intake: never substance use type: does not use Discharge Assessment & Plan Assessment and Plan Assessment: Infected left total hip arthroplasty s/p revision with placement of a antibiotic spacer and extensive debridement Plan of Treatment: Prosthetic hip infection: 1) PICC placed POD#1. On ceftriaxone 2g daily per [facility] ID. Will need IV abx for a minimum of 6 weeks. Patient has follow up appt w/ ID physician at [facility] in the next week. 2) Gram stain negative for organisms, aerobic final no growth preliminarily, anaerobic preliminary no growth on all specimens sent. S/P revision of total hip: 1) Pt has a h/o gastric bypass and should NOT receive NSAIDs. Diclofenac and IBPN discontinued. 2) Despite above, ok to remain on ASA 81mg BID for VTE prophylaxis. 3) Touchdown weightbearing only to LLE w/ posterior hip precautions for 6 weeks. 4) Will need SNF placement prior to going home. CM has been working on placement, patient wound prefer [facility] in [place] if possible. Plan for transportation and d/c to SNF today. 6) Continue multimodal pain management with ice to the hip for additional pain control. Discussed with patient and nurse 10 mg of oxycodone prior to discharge to aid comfort of transportation to SNF. Acute on chronic blood loss anemia: 1) Acute anemia d/t blood loss during extensive surgery. She received 2 units PRBCs in surgery, and one unit PRBC yesterday. H&H improved today at 8.1 and 24.9. Discharge Plan Discharge Plan Patient Disposition: SNF Transfer to: [facility] Discharge orders & Medications Prescriptions: New aspirin 81 mg Tablet,Delayed Release (Dr/Ec) 81 mg PO BID Qty: 90 0RF calcium carbonate 200 mg calcium (500 mg) Tablet,Chewable 1,000 mg PO TID PRN (Reason: Heartburn) Qty: 90 0RF ceftriaxone 2 gram Recon Soln 2,000 mg IV Q24H Qty: 25 0RF cyclobenzaprine 10 mg Tablet 10 mg PO Q8HR PRN (Reason: Spasms) Qty: 10 0RF ondansetron 4 mg Tablet,Disintegrating 4 mg PO Q4HR PRN (Reason: Nausea) Qty: 10 0RF heparin lock flush (porcine) 100 unit/mL Solution 500 unit IV PRN PRN (Reason: Flush) Qty: 125 0RF oxycodone 5 mg tablet 5 mg PO Q4H PRN (Reason: pain) Qty: 30 0RF Continued omeprazole 20 mg capsule,delayed release(DR/EC) 20 mg PO BID estradiol 2 mg tablet 2 mg PO DAILY prazosin 2 mg capsule 2 mg PO BEDTIME PRN (Reason: Medical PTSD) escitalopram oxalate 20 mg tablet 20 mg PO DAILY Qty: 90 3RF allopurinol 100 mg tablet 100 mg PO DAILY hydrochlorothiazide 25 mg tablet 25 mg PO QDAY Qty: 90 0RF gabapentin 800 mg Tablet 800 mg PO TID atenolol 50 mg tablet 50 mg PO BID ferrous sulfate [FeroSul] 325 mg (65 mg iron) Tablet 325 mg PO BID acetaminophen 325 mg tablet 650 mg PO TID docusate sodium 100 mg capsule 100 mg PO BID PRN (Reason: Constipation) cyanocobalamin (vitamin B-12) 500 mcg Tablet,Chewable 500 mcg PO DAILY (DME) Respironics Dreamstation CPAP Qty: 1 Dose Instruction: As directed Patient Comments: Pressure: 10-16 cmH2O DME: [facility] Instructions: As directed Changed quetiapine 25 mg tablet 25 mg PO BEDTIME PRN (Reason: Sleep) Qty: 30 0RF Discontinued diclofenac sodium 100 mg tablet extended release 24 hr 100 mg PO DAILY amoxicillin 500 mg Tablet 1,000 mg PO TID Follow up/Referrals: Juanito Johnson MD [Primary Care Provider] - Renita Monsivais MD [Physician] - 02/07/25 3:30 pm (Follow up w/ Jen Lunsford PA-C, at [facility] in [place].) Diet/Activity/Treatments Diet: Diet as Tolerated Activity: Touchdown weightbearing on left. Posterior hip precautions. Cold/Heat Therapy: Ice to hip as needed for pain. Skin/Wound/Dressing Care Report to your healthcare provider any signs of infection, such as:: chills, fever, night sweats, unusual drainage and unusual redness Dressing: May shower. Leave dressing in place until follow up in office. In 5- 7 days, batteries will , at which point you can cut off the battery pack and dispose of it, but leave the dressing on. No bathing or otherwise soaking incision. Call the office if the dressing becomes saturated inside. [facility] Reason for rehabilitation: Post-operative therapy Rehab type: Physical therapy Visit Report/Discharge Packet Instructions: DI for Hip Replacement, DI for Prescription Opioid Use Stand Alone Forms: Patient Portal/API, Surgery Discharge Discharge Data Primary Care Provider: Juanito Johnson
== END 2025-01-29 11:15 | DRG 467 ==
PROVIDERS: Nurse Anesthetist, Certified Registered; Physician Assistant; Physician Assistant Surgical; Admitting Provider Orthopaedic Surgery; PCP Family Medicine; Referring Provider Orthopaedic Surgery; Visit Provider Orthopaedic Surgery
PROC: 0SRB0EZ Replacement of Left Hip Joint with Articulating Spacer, Open Approach (ICD-10-PCS; principal; 2025-01-24 11:45)
DX: T84.52XA Infection and inflammatory reaction due to internal left hip prosthesis, initial encounter (principal); D62 Acute posthemorrhagic anemia; Z68.42 Body mass index [BMI] 45.0-49.9, adult; F33.2 Major depressive disorder, recurrent severe without psychotic features; B95.1 Streptococcus, group B, as the cause of diseases classified elsewhere; F17.200 Nicotine dependence, unspecified, uncomplicated; G89.18 Other acute postprocedural pain; I95.1 Orthostatic hypotension; F43.10 Post-traumatic stress disorder, unspecified; F41.9 Anxiety disorder, unspecified; I10 Essential (primary) hypertension; D50.9 Iron deficiency anemia, unspecified; E66.9 Obesity, unspecified; Y79.2 Prosthetic and other implants, materials and accessory orthopedic devices associated with adverse incidents; G47.33 Obstructive sleep apnea (adult) (pediatric); Z98.84 Bariatric surgery status; Z79.890 Hormone replacement therapy
CPT/HCPCS: 36415; 36430; 36569; 71045; 73502; 76000; 80048; 80053; 82962; 84132; 85014; 85018; 85025; 85027; 86850; 86900; 86901; 86927; 87070; 87075; 87205; 87801; 93005; 94762; 97162; 97165; 97530; 97535; 99214; C1776; P9016; C1713; J0134; J0666; J0690; J0696; J1171; J1642; J2250; J2274; J2405; J2704; J3490

== ENCOUNTER 2025-04-03 06:14 | Inpatient (IN) | payer MEDICARE, OTHER, SELFPAY ==
[2025-01-24 22:36] VITALS: BMI 44.1
[2025-03-25 08:36] VITALS: BMI 45.7
[2025-04-03] VITALS (12 sets, daily range): BP systolic 91–133; BP diastolic 50–90; PULSE 58–68; RESP 12–18; TEMP 36.3–36.6; O2SAT 93–96; BMI 45.7
--- NOTE | 2025-04-03 | DI.RAD.S_ITS ---
PROCEDURE: [id number] W PEL IF PERFORMED INDICATIONS: intra op total left hip revision TECHNIQUE: AP pelvis with lateral view(s) of the left hip(s). COMPARISON: [facility], CR, XR PELVIS WITH LATERAL HIP LEFT, 03/13/2025, 10:32. [facility], CR, XR HIP W PEL IF DONE LT 2V, 01/24/2025, 21:12. FINDINGS: Intraoperative images demonstrating revision of previous hip arthroplasty. Hardware appears intact. IMPRESSION: Intraoperative hip arthroplasty revision. Dictated by: Belkys Le M.D. on 04/03/2025 at 14:23 Approved by: Belkys Le M.D. on 04/03/2025 at 14:23
--- NOTE | 2025-04-03 06:00 | DI.RAD.S_ITS ---
PROCEDURE: XR HIP W PEL IF DONE LT 2V INDICATIONS: left total hip revision TECHNIQUE: AP pelvis and lateral view of the hip acquired. COMPARISON: [facility], CR, XR PELVIS WITH LATERAL HIP LEFT, 03/13/2025, 10:32. [facility], CR, XR HIP W PEL IF DONE LT 2V, 01/24/2025, 21:12. [facility], CR, XR HIP W PEL IF DONE LT 2V, 01/24/2025, 17:33. FINDINGS: Bones: Patient is status post left hip arthroplasty, with hardware components in expected positions. The hip joint appears congruent. The visualized bony structures appear intact. Soft tissues: Overlying postoperative changes are noted. No suspicious soft tissue densities. IMPRESSION: Expected post-operative appearance of a hip arthroplasty revision. Dictated by: eDmetrius Talley M.D. on 04/03/2025 at 13:38 Approved by: Demetrius Talley M.D. on 04/03/2025 at 13:39
[2025-04-03 07:17] LABS: Add Manual Diff / Slide Review NO; Basophils Absolute Auto 0 /uL (0-100); Basophils Percent Auto 0.6 % (0-2); Eosinophils Absolute Auto 100 /uL (0-450); Eosinophils Percent Auto 3.1 % (2-4); Hematocrit 36.9 % (36-46); Hemoglobin 12.2 g/dL (12.0-16.0); Lymphocytes Absolute Auto 1600 /uL (1100-4500); Lymphocytes Percent Auto 32.7 % (25-40); Mean Corpuscular HGB Conc 33.1 % (30-36); Mean Corpuscular Hemoglobin 29.3 PG (26-34); Mean Corpuscular Volume 88.6 fL (80-100); Monocytes Absolute Auto 400 /uL (0-900); Monocytes Percent Auto 8.2 % (3-14); Neutrophils Absolute Auto 2600 /uL (1500-7000); Neutrophils Percent Auto 55.4 % (50-75); Platelet Count 266 X10^3/uL (150-400); Red Blood Cell Count 4.17 X10^6/uL (4.0-5.2); Red Cell Distribution Width 14.9 % (11.6-14.8); White Blood Cell Count 4.7 X10^3/uL (4.5-11.0)
[2025-04-03] MEDS: SCOPOLAMINE 1 PATCH TOP (07:19)
[2025-04-03] MEDS: CELECOXIB 200 MG CAPSULE PO (07:19)
[2025-04-03] MEDS: LACTATED RINGERS 1,000 ML 42 ML IV ×3 (07:20→12:45)
[2025-04-03] MEDS: VANCOMYCIN 1,000 MG in SODIUM CHLORIDE 0.9% 250 ML 250 MG IV (07:21)
--- NOTE | 2025-04-03 07:29 | PM.PREOP ---
Pre-operative Note Interval Note History & Physical reviewed/Exam performed by Physician: Yes Changes to H&P: No
[2025-04-03 07:30] LABS: C-Reactive Protein Quant 2.4 mg/dL (<1.0)
[2025-04-03 07:41] LABS: Erythrocyte Sedimentation Rate 26 MM/HR (0-20)
[2025-04-03] MEDS: ONDANSETRON 4 MG/2 ML INJ IV (07:44)
[2025-04-03] MEDS: TRANEXAMIC ACID 1,000 MG VIAL 1000 MG INJ ×2 (08:18→12:09)
--- NOTE | 2025-04-03 08:22 | SUR.PREOP ---
Pt reported nausea after blood draw and nasal decolonization to Megan Castanon CRNA. Order for zofran after still nausea after quease ease.
[2025-04-03] MEDS: CEFAZOLIN VIAL 3 GM in SODIUM CHLORIDE 0.9% 100 ML IV ×3 (08:28→20:48)
--- NOTE | 2025-04-03 09:36 | SUR.OPER ---
Lateral on padded OR bed. Gel axillary roll. Arms secured on padded armboard with pillow supporting top arm. Padded hip positioner braces x4 - anterior and posterior chest and pelvis. Additional gel pad used anterior pelvis. Gel pad under bottom leg from knee to foot and secured with tape over sheet. Dr. Monsivais in room to assist with positioning, all pressure points cover, final position approved by surgeon.
[2025-04-03] MEDS: BUPIVACAINE 0.25% W/ EPI 30 ML VIAL 60 ML INJ (09:58)
[2025-04-03] MEDS: BUPIVACAINE LIPOSOME 266 MG/20 ML VIAL INJ (09:59)
[2025-04-03] MEDS: VANCOMYCIN 1,000 MG VIAL 500 MG TOP (10:23)
[2025-04-03] MEDS: GENTAMICIN 80 MG/2 ML VIAL 120 MG INTRA-ARTI (10:25)
[2025-04-03] MEDS: LACTATED RINGERS 1,000 ML 100 ML IV (14:27)
[2025-04-03] MEDS: GABAPENTIN 400 MG CAPSULE 800 MG PO ×2 (14:31→20:36)
[2025-04-03] MEDS: ACETAMINOPHEN 325 MG TABLET 650 MG PO ×2 (14:32→20:36)
--- NOTE | 2025-04-03 16:05 | OT.IPNOTE ---
Pt not ready to get up at this time, to check on pt tomorrow for OT eval.
[2025-04-03] MEDS: OXYCODONE IR 5 MG TABLET PO ×2 (16:18→18:05)
--- NOTE | 2025-04-03 17:12 | PC.NURSE ---
Patient arrived from PACU to room 205 at 1400 this afternoon she is sleep but awakens easily. She is able to tolerate a popsicle and pudding w/o n/v. She reports some numbness to thight on LLE, and heaviness to LLE. ANA dressing c/d/i. She reports pain to L thigh 5/10 well controlled with prn oxycodone 5 mg prn. Admission assessment completed, POSTOP VS per protocol, Continuous pulse ox, SCD's on, Call light in reach, bed alarm on, arango monitoring, IVF LR at 100 ml/hr, q2 turning. Accu check this evening was 207, however after pudding/ popsicle. Patient's at bedside supportive. PT/OT arrived to work with patient however patient requested them to return in a.m.
[2025-04-03] MEDS: VANCOMYCIN 1,500 MG/300 ML PIGGYBACK 200 MG IV (18:06)
--- NOTE | 2025-04-03 20:35 | P.OP_ITS ---
Operative Date/Time/Diagnoses Date of procedure: 04/03/25 Time of procedure: 08:40 Pre-op diagnosis: Periprosthetic joint infection left hip Post-op diagnosis: same Procedure & Clinicians Procedure: 1. revision left total hip arthroplasty 2. ORIF left femur fracture Same procedure as scheduled: Yes Indications: This is a 59-year-old female who had a periprosthetic infection strep. She has had a previous exchange arthroplasty with placement of an antibiotic spacer. She had a 6 week course of IV antibiotics. She has been extensively worked up and had an aspirate including Synovasure and PCR all of which was negative for infection. She now returns to the operating room for revision hip arthroplasty. She did have a left femur fracture near the tip of her Prostalac cemented stem which was noted on postoperative films and did have some subsidence of the prosthesis and Prostalac. The plan is for repair of the femoral fracture as n eeded. The procedure options risks benefits and complications were discussed extensively with the patient. Risks including but not limited to recurrent infection, persistent hip pain, hip instability, failure to unite the fracture, subsidence of the prosthesis with shortening instability and potential anesthetic complications were discussed in detail. Surgeon: Renita Monsivais Frame Operator: Melanie Beavers Anesthesia Type: General Operative Notes Findings: No evidence consistent with active infection. Adequate quality bone, good quality reduction of the femoral fracture, adequate stability, Closure Type: primary Specimen(s): other (Multiple extensive cultures were sent PCR and general cultures) Prosthetic devices, grafts, tissues, transplants, or devices: Monsivais and Nephew redapt size 15 by 240 standard offset femoral stem, size 56 R3 cup, dual mobility 56 x 44, 44 poly with 28 by +0 femoral head, 3 accord cables, 3 acetabular screws, 1 locking Applied: catheter Estimated Blood Loss (mL): 500 Blood products transfused: none Procedure in detail: The patient was seen in the pre-operative area, where the patient identified the left hip as the operative site and this was marked with my initials. The patient received pre-operative antibiotics and was taken to the operating room and placed on the operative table in the right lateral decubitus position after satisfactory anesthesia. A corporate manager out was performed. The left leg was prepared from the ankle to the iliac crest with ChloroPrep in the usual fashion and draped through sterile drapes. A skilled surgical appliances salesperson was essential during the procedure Dr. Carlos assisted throughout the procedure providing retraction and essential support for intraoperative positioning and fixation of the femur as well as the revision hip arthroplasty. The hip was approached through an approximately 24 cm incision centered over the greater trochanter and curving gently posteriorly as it went proximally. The patient's previous previous surgical excision was carefully removed. This was carried sharply to the fascia randy, which was divided and retracted with a self retaining retractor. Scar and subcutaneous tissue was resected. Dissection was carried out down to the fascia along the patient's previous surgical line. There was no evidence of infection of the subcutaneous tissues. Dissection was carried out down to the trochanter. There was moderate fluid around the trochanter but no evidence of infection. I did strip some of the soft tissue along the lateral aspect of the trochanter and that was sent for the 1st specimen for PCR and culture and sensitivity. The patient had a noted femur fracture. It was felt that we should stabilize the finger femur fracture prior to proceeding with the revision hip arthroplasty. The incision was carried out down through the fascia the vastus lateralis was carefully identified and then was retracted anteriorly. I passed 2 cerclage wires around the femur stabilizing the fracture with a Prostalac prosthesis in place. We passed 1 distal to the crack in order to avoid crack propagation with reaming and 1 more proximal in order to further stabilize the femur and avoid displacement of the fracture. Fluoroscopy was used for positioning the cables around the femur. Once we had satisfactory stability of the fracture, The hip was dislocated. The femoral head was still locked to the Prostalac acetabular component. The cement around the Prostalac component had fragmented some in the acetabulum. The head and acetabular component was removed. Multiple fragments of cement were carefully removed from the acetabulum. Next the femoral component was meticulously removed. Also work to make sure that I had scrubbed the canal and removed any soft tissue or concerning tissue from the canal. I sent cultures from the synovium, acetabulum the femur and the femoral canal. Both PCR and plain cultures were sent. Retractors were placed to expose the acetabulum. The residual scar and central soft tissues were removed. There was a small amount of cement which was meticulously removed. Reaming was performed initially going up in 2 mm increments, then 1 mm increments until good bite was obtained with an odd sized reamer. The cup 1 mm larger than the last reamer was then inserted using the appropriate anteversion guides. The cup had reasonable stability but it was then further stabilized with a total of 3 screws. Two were placed in nonlocking and 1 was placed in a locking mode. A dual mobility liner was placed. Retractors were placed around the femur. The canal was meticulously exposed with a T handled reamer and a lateralizing reamer. The canal was then carefully reamed in order to allow insertion of a revision hip arthroplasty component. We looked with the C-arm and plan for a 240 mm stem. That did appear to adequately pass the fracture. I meticulously reamed up to a size 14. Thought I might be able to get to a 15. Proximal trochanter was carefully over-reamed. The broach was placed in the canal with meticulous attention directed at version. A trial head and neck were then placed and the hip relocated and checked for leg length and stability. An intraoperative C-arm confirmed the component position and adequate alignment of the fracture. The patient was stable in the position of sleep, of squatting, and could be put through a range of motion with 45 degrees internal rotation without dislocation. At 90 degrees flexion, internal rotation to 70? was possible before dislocation. This was felt to be satisfactory and the appropriate components were opened, and the trials were removed. I felt that I could go up to 1 size on the reaming and I reamed up to a 15. The final stem was then impacted into the prepared femoral canal with meticulous attention directed at version. A brief Betadine soak was performed while trialing with head options. We used extensive irrigation during the procedure and Betadine and pulse lavage and hydrogen peroxide. The hip was meticulously irrigated with normal saline. Finally the femoral head was impacted onto the stem. The acetabulum was cleared of all material and the hip relocated one final time. I did a final check with fluoroscopy and was happy with the position of the components. I then looked to see whether we should supplement our femoral fixation with additional cerclage wires or possibly a plate. There was excelle nt fixation across the fracture site and I thought I had bony apposition through the fracture site without proximal extension or specific greater trochanteric extension. I did add an additional cable to supplement the fracture fixation. Antibiotic beads were mixed for implantation and some beads were placed deep in the fascia along the muscle and also into the joint space. A very extensive closure was performed. We closed the fascia over the vastus lateralis and then meticulously closed the fascia and then meticulously closed the subcutaneous tissues with multiple multiple interrupted and barbed stitches. The fascia randy was closed with Vicryl. The subcutaneous layer was closed with barbed sutures and skin glory. A neel dressing was applied and the patient was taken to recovery having tolerated the procedure well. Complications: none Post-operative Condition: stable Disposition: Acute Care Plan for aftercare: The patient will be maintained on a standard total hip replacement protocol with weight bearing as tolerated and posterior hip precautions. The patient will receive Aspirin and sequential compression devices for DVT prophylaxis. The patient will be discharged home when safe for the home environment. The overall plan is to continue the patient on antibiotics for at least 6 months to 1 year postoperatively. We will keep her on IV antibiotics for several days she potentially can go home on Tuesday. She can be weight-bearing as tolerated on the left lower extremity with routine posterior hip precautions. We will follow up on her cultures and PCR
[2025-04-03] MEDS: DOCUSATE 100 MG CAPSULE PO (20:36)
[2025-04-03] MEDS: FERROUS SULFATE 325 MG TABLET PO (20:37)
[2025-04-03] MEDS: ASPIRIN EC 81 MG TABLET PO (20:37)
[2025-04-03] MEDS: PRAZOSIN 1 MG CAPSULE 2 MG PO (20:45)
[2025-04-03] MEDS: PANTOPRAZOLE DR 20 MG TABLET PO (21:01)
[2025-04-03] MEDS: diphenhydrAMINE 25 MG TABLET 50 MG PO (23:40)
[2025-04-03] MEDS: OXYCODONE IR 10 MG TABLET PO (23:40)
[2025-04-04] MEDS: ACETAMINOPHEN 325 MG TABLET 650 MG PO ×4 (01:55→21:15)
[2025-04-04] MEDS: CEFAZOLIN VIAL 3 GM in SODIUM CHLORIDE 0.9% 100 ML IV ×3 (04:42→16:43)
[2025-04-04] MEDS: OXYCODONE IR 10 MG TABLET PO ×6 (04:49→21:16)
[2025-04-04 05:55] LABS: Hematocrit 27.1 % (36-46); Hemoglobin 9.2 g/dL (12.0-16.0)
[2025-04-04] MEDS: PANTOPRAZOLE DR 20 MG TABLET PO ×2 (06:39→21:19)
--- NOTE | 2025-04-04 07:34 | P.PN_ITS ---
Subjective Subjective Interval history: She was resting in the bed comfortably. She has minimal pain. She was able to get sleep overnight. Exam Vital Signs (past 8 hours): Oxygen Delivery Method Nasal Cannula Oxygen Flow Rate 0 Narrative Exam Narrative: Dressing is intact, minimal pain with range of motion she is neurologically intact distally, calves are soft distally Objective Labs 04/04/25 05:47 Labs: Laboratory Results - last 24 hr 04/03/25 04/04/25 07:00 05:47 Hgb 9.2 L Hct 27.1 L ESR 26 H Blood Type O Positive Antibody Screen Negative [facility] Medical History (Updated 03/25/25 @ 09:25 by Rosaura Givens RN) Anesthesia complication Iron deficiency anemia History of COVID-19 Osteoarthritis Pancreatitis Esophageal dilatation History of postoperative complication of surgical procedure History of intraoperative complication of surgical procedure Recurrent major depression resistant to treatment Hypersomnia Obstructive sleep apnea of adult Snoring Finger pain, right Chronic pain of left elbow Chronic right shoulder pain Essential hypertension Generalized headaches (2010) PTSD (post-traumatic stress disorder) (2010) Depression (2010) Anxiety (2010) Fibromyalgia (~2013) Ovarian cyst (1999) Genital warts (1989) Hypertension (2010) Surgical History (Updated 03/25/25 @ 08:46 by Rosaura Givens RN) 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 Mother Cancer Social History marital status: details: to [place] household members: spouse and children lives independently: Yes caregiver/support person: No housing: house pets and animals: Yes education level: college Smoking Status: Former smoker alcohol intake: current substance use type: does not use Assessment & Plan Post-op Postoperative Procedures: Procedures Operation Date: 05/14/25 07:45 Actual Procedure Side Surgeon p Revision, total arthroplasty, hip, both components (left), femur fracture repair Left Renita Monsivais MD Postoperative day: 1 Postoperative status: doing well Postoperative plan: routine post-op care Postoperative plan narrative: She is doing reasonably well postoperatively. We are going to mobilize her with physical therapy. We are going to continue her on antibiotics during her hospital stay. I am going to discontinue her Bello. I anticipate her staying at least until Tuesday or possibly Tuesday.
[2025-04-04] MEDS: DOCUSATE 100 MG CAPSULE PO ×2 (08:40→21:16)
[2025-04-04] MEDS: ASPIRIN EC 81 MG TABLET PO ×2 (08:40→21:16)
[2025-04-04 08:41] VITALS: BP 117/65; PULSE 73; RESP 16; TEMP 36.7; O2SAT 96
[2025-04-04] MEDS: ESCITALOPRAM 10 MG TABLET 20 MG PO (08:41)
[2025-04-04] MEDS: FERROUS SULFATE 325 MG TABLET PO ×2 (08:41→21:16)
[2025-04-04] MEDS: GABAPENTIN 400 MG CAPSULE 800 MG PO ×3 (08:41→21:15)
[2025-04-04] MEDS: allopurinoL 100 MG TABLET PO (08:41)
[2025-04-04] MEDS: CYANOCOBALAMIN (VITAMIN B-12) 500 MCG TABLET PO (09:12)
[2025-04-04] MEDS: estradioL 1 MG TABLET 2 MG PO (09:25)
--- NOTE | 2025-04-04 09:40 | PT.IIE ---
Current Diagnoses Infection and inflammatory reaction due to other internal joint prosthesis, subsequent encounter (04/03/25) Presence of left artificial hip joint (04/03/25) Surgery Performed Operation Date: 04/03/25 07:45 Actual Procedures p Revision, total arthroplasty, hip, both components (left), femur fracture repair(Left) - Renita Monsivais MD Surgical History (Last Updated 03/25/25 @ 08:46 by Rosaura Givens RN) H/O gastric sleeve (~2020) History of History of intestinal surgery (Unknown) History of major abdominal surgery (2010) History of total left hip replacement (08/09/24) Hx of cholecystectomy Hx of colonoscopy (01/09/20) Hx of hernia repair Hx of oophorectomy (2010) S/P hysterectomy (Unknown) Status post repair of recurrent ventral hernia Status post repair of ventral hernia 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 (01/24/25) Medical History (Last Updated 03/25/25 @ 09:25 by Rosaura Givens RN) Anesthesia complication Anxiety (2010) Chronic pain of left elbow Chronic right shoulder pain Depression (2010) Esophageal dilatation Essential hypertension Fibromyalgia (~2013) Finger pain, right Generalized headaches (2010) Genital warts (1989) History of COVID-19 History of intraoperative complication of surgical procedure History of postoperative complication of surgical procedure Hypersomnia Hypertension (2010) Iron deficiency anemia Obstructive sleep apnea of adult Osteoarthritis Ovarian cyst (1999) Pancreatitis PTSD (post-traumatic stress disorder) (2010) Recurrent major depression resistant to treatment Snoring Physical Therapy Inpatient Evaluation/Re-Eval M1 PT/OT-IP Prior Functional Status Start: 04/04/25 13:16 Freq: NEEDED Status: Active Protocol: Document 04/04/25 09:40 DLM (Rec: 04/04/25 13:38 DLM Desktop) Medical Review Prior Functional Status Medical History Reviewed Yes Diet/Fluid Consistency Regular Communication WFL Mobility and Gait Independent, She has has prior limitations due to TTWB after last surgery 01/24/25 with antibiotic space, used FWW Activities of Daily Living and IADL's Independent Needing help from family when has limited weight bearing on hip Prior Functional Level (Other details) left hip revision 01/24/25 with antibiotic spacer Social History Household Members spouse,children Living Arrangements House Number of Floors (Floors) One Floor Number of Stairs To Enter/Railing? ramp Home Environment Walk in Shower,Tub/Shower, Bidet Home Equipment Front Wheel Walker,Manual Wheelchair,Shower Seat without Backrest,Leg Minister Helper,Hospital Sales Representative, Sock Aid,Mechanical Lift,Grab Bars In Shower Additional Social History Comment adjustable bed, recliner Daughter has helped at home M2 PT-IP Current Condition Start: 04/04/25 13:16 Freq: NEEDED Status: Active Protocol: Document 04/04/25 09:40 DLM (Rec: 04/04/25 13:38 DLM Desktop) Physical Therapy Current Condition Current Condition Evaluation Date 04/04/25 Treatment Diagnosis revision left JUAN, posterior approach, impaired gait Onset Date 04/03/25 M3 PT-IP Subjective Start: 04/04/25 13:16 Freq: NEEDED Status: Active Protocol: Document 04/04/25 09:40 DLM (Rec: 04/04/25 13:38 DLM Desktop) Subjective Physical Therapy Visit Type Type Initial Evaluation Visit Start Time 09:00 Visit Stop Time 09:40 Notes 40 min Number of PAPER GUILLOTINE OPERATOR Visits 0 Physical Therapy Visit Comments Patient Comments She reports pain in left hip area today Patient Goals discharge home Therapy Pain Assessment Pain When Pain Assessed During Mobility Pain Present Pain Present Pain Reported Location Left Hip Intensity 8 Scale Used Numeric (0 - 10) Description Aching,Tender,With Movement Pain Behaviors Facial Grimacing,Guarding Pain Management Techniques Apply Cold,Modification of Treatment,Re-positioning M4 PT-IP Mobility and Gait Start: 04/04/25 13:16 Freq: NEEDED Status: Active Protocol: Document 04/04/25 09:40 DLM (Rec: 04/04/25 13:38 DLM Desktop) PT-Bed Mobility Assessment Supine to Sit Supine to Sit Minimal Assistance Sit to Supine Sit to Supine Minimal Assistance Scooting Scooting to Edge of Bed Independent Scooting Up and Down in Bed Standby Assistance PT-Transfer Assessment Sit to and From Stand Sit to and from Stand Standby Assistance,Use of Upper Extremities Equipment Transfer Assistive Device Gait Belt,Front Wheeled Walker Comments Mobility Comments Pt able to stand edge of bed with FWW and take a few side steps. She became light-headed and sweaty and had to return to supine to manage her symptoms. BP back in bed 136/ 67. Unable to progress to transfers to chair this visit due to her light-headedness Gait Assessment Gait Gait Assistance Required: Standby Assistance Distance (Feet) 3 Assistive Devices Assistive Device Gait Belt,Front Wheeled Walker Gait Deviations General Gait Pattern Antalgic,Decreased Stride Length Factors Limiting Gait Function Factors Limiting Gait Function Decreased Activity Tolerance, Decreased Strength,Limited Range of Motion,Pain Comments Gait Comments side-steps at edge of bed only , unable to advance this distance due to light- headedness Stair Climbing Assessment Comments Stair Climbing Comments ramp to enter house PT-Balance Assessment Sitting Balance and Reactions Static Sitting Balance Ability Normal Dynamic Sitting Balance Ability Normal Standing Balance and Reactions Static Standing Balance Ability Good Dynamic Standing Balance Ability Good Device Used FWW M5 PT-IP Objective Assessments Start: 04/04/25 13:16 Freq: NEEDED Status: Active Protocol: Document 04/04/25 09:40 DLM (Rec: 04/04/25 13:38 DLM Desktop) Orientation Orientation/Cognition Level of Alertness Alert Orientation Name,Age,Birthday,Month,Date, Year,Day of Week,Place, Situation Language Function Ability No Deficits Noted Safety Awareness Understands Safety Issues Memory Description No Deficits Noted Gross Range of Motion Upper Extremity ROM Assessment Within Functional Limits Lower Extremity ROM Assessment Left Impaired Impairments left hip precautions with pain post-op Strength Upper Extremity Strength Assessment Within Functional Limits Lower Extremity Strength Assessment Left Impaired Hip needs assist to move LE in bed , standing hip flex 2+/5 Knee 3+/5 with pain Ankle DF 5/5 Coordination Assessment Gross Coordination Gross Coordination WNL Sensation Assessment Sensation Gross Sensation WNL Muscle Tone Muscle Tone WNL Yes M6 PT-IP Treatment Start: 04/04/25 13:16 Freq: NEEDED Status: Active Protocol: Document 04/04/25 09:40 DLM (Rec: 04/04/25 13:38 DLM Desktop) Physical Therapy Treatment Exercises Exercises Ankle Pumps,Gluteal Sets,Quad Sets Education Education Provided Precautions,Weight Bearing Status,Safety M7 PT-IP Assessment and Plan Start: 04/04/25 13:16 Freq: NEEDED Status: Active Protocol: Document 04/04/25 09:40 DLM (Rec: 04/04/25 13:38 DLM Desktop) PT Summary Assessment and Plan Potential Rehabilitation Potential Good Status of Condition at Evaluation Evolving Summary Impairments Pain,ROM,Strength,Balance,Bed Mobility,Transfers,Gait, Activity Tolerance Assessment Summary Bri is alert and resting in bed post-op left JUAN revision with posterior approach. She was at home with family assist before this admission. She was able to sit edge of bed and take a few side steps this visit with FWW and one person assist. Her progression of activity was lighted by onset of light-headedness which did not resolve with sitting rest and pt had to return to supine to resolve her symptoms. Pt is eager to discharge home when she is medically stable. Will plan for her to discharge home with family assist once her light-headedness with activity resolves. She is not ready for discharge today. Anticipate it will take 1-2 more days to progress her gait to household distances. Goals Bed Mobility Goal Independent Transfer Goal Independent,Front Wheeled Walker Gait Goal Standby Assistance,Front Wheel Walker Gait Distance 100 feet Other Goals Tolerate standing and activity without light-headedness Days to Meet Goals 3 Frequency of Treatment Frequency Of Treatment Twice a Day Treatment Plan Physical Therapy Treatment Plan Bed Mobility Training,Transfer Training,Gait Training, Therapeutic Exercise,Balance Retraining,Post Op Education, Discharge Planning,Hot or Cold Pack,Neuromuscular Re-ed Precautions Posterior Hip Precautions No Hip Flexion > 90 degrees,No Hip Internal Rotation,No Hip Adduction Weight Bearing Status Weight Bearing Status Weight Bear as Tolerated Allowed Weight Bearing Amount (enter % left JUAN with FWW or #) (%) Recommendations To Nursing Amount of Assist Needed 1 Person Assist Discharge Recommendations PT Discharge Recommendations Home with Assistance Other Discharge Recommendations not ready to discharge yet due to light-headed when up Transportation Needs at Discharge Private Vehicle - PT assist 1
[2025-04-04] MEDS: IBUPROFEN 400 MG TABLET PO (12:48)
--- NOTE | 2025-04-04 14:11 | OT.IP.EVAL ---
Current Diagnoses Infection and inflammatory reaction due to other internal joint prosthesis, subsequent encounter (04/03/25) Presence of left artificial hip joint (04/03/25) Surgery Performed Operation Date: 04/03/25 07:45 Actual Procedures p Revision, total arthroplasty, hip, both components (left), femur fracture repair(Left) - Renita Monsivais MD Past Medical History (Last Updated 03/25/25 @ 09:25 by Rosaura Givens RN) Anesthesia complication Anxiety (2010) Chronic pain of left elbow Chronic right shoulder pain Depression (2010) Esophageal dilatation Essential hypertension Fibromyalgia (~2013) Finger pain, right Generalized headaches (2010) Genital warts (1989) History of COVID-19 History of intraoperative complication of surgical procedure History of postoperative complication of surgical procedure Hypersomnia Hypertension (2010) Iron deficiency anemia Obstructive sleep apnea of adult Osteoarthritis Ovarian cyst (1999) Pancreatitis PTSD (post-traumatic stress disorder) (2010) Recurrent major depression resistant to treatment Snoring Surgical History (Last Updated 03/25/25 @ 08:46 by Rosaura Givens RN) H/O gastric sleeve (~2020) History of History of intestinal surgery (Unknown) History of major abdominal surgery (2010) History of total left hip replacement (08/09/24) Hx of cholecystectomy Hx of colonoscopy (01/09/20) Hx of hernia repair Hx of oophorectomy (2010) S/P hysterectomy (Unknown) Status post repair of recurrent ventral hernia Status post repair of ventral hernia 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 (01/24/25) Occupational Therapy Inpatient Evaluation/Re-Eval M1 PT/OT-IP Prior Functional Status Start: 04/04/25 13:16 Freq: NEEDED Status: Active Protocol: Document 04/04/25 09:40 DLM (Rec: 04/04/25 13:38 DLM Desktop) Medical Review Prior Functional Status Medical History Reviewed Yes Diet/Fluid Consistency Regular Communication WFL Mobility and Gait Independent, She has has prior limitations due to TTWB after last surgery 01/24/25 with antibiotic space, used FWW Activities of Daily Living and IADL's Independent Needing help from family when has limited weight bearing on hip Prior Functional Level (Other details) left hip revision 01/24/25 with antibiotic spacer Social History Household Members spouse,children Living Arrangements House Number of Floors (Floors) One Floor Number of Stairs To Enter/Railing? ramp Home Environment Walk in Shower,Tub/Shower, Bidet Home Equipment Front Wheel Walker,Manual Wheelchair,Shower Seat without Backrest,Leg Paper Final Inspector,Shellfish Sorter, Sock Aid,Mechanical Lift,Grab Bars In Shower Additional Social History Comment adjustable bed, recliner Daughter has helped at home M1 PT/OT-IP Prior Functional Status Start: 04/04/25 14:11 Freq: NEEDED Status: Active Protocol: Document 04/04/25 13:30 [facility] (Rec: 04/04/25 14:31 [facility] Desktop) Medical Review Prior Functional Status Medical History Reviewed Yes Diet/Fluid Consistency Regular Communication WFL Mobility and Gait Independent, She has has prior limitations due to TTWB after last surgery 01/24/25 with antibiotic space, used FWW Activities of Daily Living and IADL's Independent Needing help from family when has limited weight bearing on hip Prior Functional Level (Other details) left hip revision 01/24/25 with antibiotic spacer Social History Household Members spouse,children Living Arrangements House Number of Floors (Floors) One Floor Number of Stairs To Enter/Railing? ramp Home Environment High Toilet,Walk in Shower, Bidet Home Equipment Front Wheel Walker,Four Wheel Walker,Manual Wheelchair,Tub Transfer Bench,Shower Seat without Backrest,Hand Held Shower,Leg Paper Final Inspector,Long Handled Shoe Horn,Shellfish Sorter,Sock Aid, Grab Bars Near Toilet,Grab Bars In Shower Additional Social History Comment adjustable bed, recliner Daughter has helped at home M2 OT-IP Current Condition Start: 04/04/25 14:11 Freq: Status: Active Protocol: Document 04/04/25 13:30 [facility] (Rec: 04/04/25 14:31 [facility] Desktop) Occupational Therapy Current Condition Current Condition Evaluation Date 04/04/25 Treatment Diagnosis S/P L JUAN revision Diagnosis Onset Date 04/03/25 Post Operative Precautions Posterior Hip Precautions No Hip Flexion > 90 degrees,No Hip Internal Rotation,No Hip Adduction Weight Bearing Status Weight Bearing Status Weight Bear as Tolerated M3 OT- IP Subjective and Pain Start: 04/04/25 14:11 Freq: Status: Active Protocol: Document 04/04/25 13:30 [facility] (Rec: 04/04/25 14:31 [facility] Desktop) OT- Subjective Occupational Therapy Visit Type Type Initial Evaluation Visit Start Time 13:30 Visit Stop Time 14:11 Occupational Therapy Visit Comments Patient Comments Pt agreed to try to get up and practice bed mobility needs. Patient/Caregiver Goals TO go home. OT Pain Assessment Pain When Pain Assessed At Rest Pain Present Pain Present Pain Reported Location Left Hip Intensity 6 Scale Used Numeric (0 - 10) M4 OT- IP ADL's Start: 04/04/25 14:11 Freq: Status: Active Protocol: Document 04/04/25 13:30 [facility] (Rec: 04/04/25 14:31 [facility] Desktop) OT [id number]-[id number]-[facility] General Evaluation Self-Feeding Ability Independent OT ADL-Grooming Comments OT Grooming Comments Not performed. OT ADL-Oral Care Comments Oral Care Comments Not performed. OT ADL-Dressing General Eval Lower Body Dressing Ability Maximum Assistance Areas Needing Assistance Socks Comments OT Dressing Comments Pt has all LB dressing equipment at home. OT ADL-Toileting Comments OT Toileting Comments Pt states just got up to use the toilet earlier with nursing aid. OT ADL-Bathing Comments OT Bathing Comments Not at this time. M5 OT- IP IADL's Start: 04/04/25 14:11 Freq: Status: Active Protocol: Document 04/04/25 13:30 [facility] (Rec: 04/04/25 14:31 [facility] Desktop) OT-Instrumental Activities of Daily Living Home Safety Awareness Awareness of Need for Assistance at Home Good Awareness Ability to Problem Solve Emergency Able to Problem Solve Situations Meal Preparation Meal Preparation Caregiver Provides Assist Search Marketing Specialist Search Marketing Specialist Caregiver Provides Assist M6 OT- IP Functional Cognition Start: 04/04/25 14:11 Freq: Status: Active Protocol: Document 04/04/25 13:30 [facility] (Rec: 04/04/25 14:31 [facility] Desktop) Cognitive Factors Limiting Selfcare Function Cognitive Ability Level of Alertness Alert Patient Orientation Name,Age,Birthday,Month,Date, Year,Day of Week,Place, Situation Attention Span Ability Capable of Focused Attention, Capable of Sustained Attention Ability to Follow Commands Able to Follow One Step Commands Cognitive Comments Cognitive Assessment Comments Pt able to recall her hip precautions and needing vc to push up form the bed to stand. Pt needing reminders to incorporate her hip precautions for mobility needs . Pt needing encouragement and reassurance while getting up and moving. OT- Vision and Hearing OT- Hearing Assessment OT- Hearing Assessment WFL OT- Vision Assessment Visual Acuity Glasses All The Time Visual Attentiveness WFL Occular Pursuits WFL M7 OT- IP Mobility and Balance Start: 04/04/25 14:11 Freq: Status: Active Protocol: Document 04/04/25 13:30 [facility] (Rec: 04/04/25 14:31 [facility] Desktop) OT- Bed Mobility Assessment Supine to Sit Supine to Sit Assist Moderate Assistance Sit to Supine Sit to Supine Assist Moderate Assistance Scooting Scooting to Edge of Bed Contact Guard Assistance OT-Transfer Assessment Sit to and From Stand Sit to and from Stand Contact Guard Assistance Technique Transfer Destination Bed Transfer Technique Stand Step Pivot Devices Transfer Assistive Devices Gait Belt,Front Wheeled Walker Comments Mobility Comments MODA to assist to help get her LLE on and off the bed. Pt attempting to use the leg cleaner laboratory equipment but having too much pain and needing physical assist from OT. CGA to stand to the FWW. BP after getting back to bed 147/74 and having no orthostatic symptoms. OT- Balance Assessment Sitting Balance and Reactions Static Sitting Balance Ability Good Dynamic Sitting Balance Ability Good Standing Balance and Reactions Static Standing Balance Ability Fair M8 OT- IP Objective Assessments Start: 04/04/25 14:11 Freq: Status: Active Protocol: Document 04/04/25 13:30 [facility] (Rec: 04/04/25 14:31 [facility] Desktop) OT Gross Range of Motion Upper Extremity Range of Motion Assessment Within Functional Limits OT Strength Upper Extremity Strength Assessment Within Functional Limits M9 OT- IP Assessment and Plan Start: 04/04/25 14:11 Freq: Status: Active Protocol: Document 04/04/25 13:30 [facility] (Rec: 04/04/25 14:31 [facility] Desktop) OT Summary Assessment and Plan Potential Rehabilitation Potential Good Analytic Complexity at Evaluation Low Summary OT Impairments Pain,Strength,Balance, Functional Mobility,Grooming, Dressing,Toileting,Bathing, Toilet Transfers,Shower Transfers,Activity Tolerance Progress Towards Goals Progressing Toward Goals,Slow Progress due to Pain Assessment Summary Pt LOW complexity and main barriers are pain, and needing reassurance and more practice of incorporating her hip precautions for ADL and mobility needs. Pt to go home when medically stable with 24/ 7 assist and home health. Goals Self-Feeding Goal Independent Grooming Goal Independent Dressing Goal Independent,Long Handled Shoe Horn,Shellfish Sorter,Sock Aid Toileting Goal Independent Bathing Goal Standby Assistance Toilet Transfer Goal Independent Shower Transfer Goal Standby Assistance Days to Meet Goals 10 Frequency of Treatment Other frequency 5x/week Treatment Plan OT Treatment Plan ADL Training,Functional Mobility,Patient/Family Education,Discharge Planning Other Treatment Recommendations and Next standing ADL's at the sink Treatment Focus Discharge Recommendations OT Discharge Recommendations Home with 24/7 Assist Available,Home Health Transportation Needs at Discharge Private Vehicle
--- NOTE | 2025-04-04 14:49 | CM.DANOTE ---
Initial DCP Assessment Visit Note Reviewed EMR and team rounds for pt's status and updates. Met with pt at bedside to introduce self and role, pt was found to be alert/oriented, working with OT, and able to discuss her need to resume [facility] at d/c, just PT. Pt resides in her own home with her spouse and children, modified independent with a walker. Her spouse will transport her home at d/c once she's medically cleared for d/c. Payor: Medicare PCP: Juanito Alex Pt is a 59 year-old F with a prior hx of a L-total hip arthroplasty revision due to infection on 01/24/25. She continued to have postoperative pain, was slow to progress with PT, and had blood loss anemia postoperatively. She does have a PICC line for her last course of IV ABO's. Her hip was evaluated by Dr. 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 Per Dr. Monsivais, pt will likely have her PICC removed while inpt, followed by d/c with oral antibiotics for 6-months to a year. DCP will continue to monitor for any further d/c assistance needs. Faxed referral for resumption orders for [facility]. Will update [facility] once pt is ready for d/c. Discharge Planning/Care Management CM Discharge Assessment Start: 04/03/25 06:20 Freq: Status: Active Protocol: Document 04/04/25 14:46 DPL (Rec: 04/04/25 14:49 DPL [id number]) Discharge Planning Assessment Assigned Spring Up Supervisor TEJA Heredia Advance Directives? No History Provided By Patient,Medical Record Prior Living Arrangements House Household Members spouse,children Type of transporation used prior to Relies on Others admit Independent with ADL's No: modified independent with a walker Is patient alert and oriented? Yes Needs Assistance With Home Chores / Shopping Caregiver for Another No Community Services used prior to Physical Therapy admission: DME Already Rented / Owned Bath Bench,Elevated Toilet Seat,FWW / Walker Patient/Family Preference Home with Home Health Barriers to Discharge No Comment Anticipate 6-mos to a year of oral antibiotics at d/c. Transportation Arrangement Spouse Referrals Initiated Home Health If patient plan is home with home health Yes : Has signed face to face form been completed? Medicare Choice List Provided Yes Medicare choice list reviewed on patient electronic tablet with SNF/HH Preference [facility] Whiteboard Updated in Patient Room with Yes name and ext. # of Spring Up Supervisor Review Status In Process Please Provide Date Initial DC 04/04/25 Assessment Was Performed Pre-Anesthesia Assessment Start: 03/25/25 08:36 Freq: Status: Active Protocol: Document 03/25/25 08:36 CAB (Rec: 03/25/25 09:26 CAB [id number]) Pre-Anesthesia Assessment PAC Comment Phone assess 03/25/25 Patient Information Reviewed Via Phone Assessment Assessment Completed With Patient Diagnostic Results BMP/CMP,CBC,EKG Comment Labs/EKG @ [facility] Primary Care Provider Juanito Johnson Seen Specialist in Last 12 Months Yes Specialist Seen Orthopedist,Other Comment Infectious Disease @ [facility] Primary Language Peruvian Preferred Language Peruvian Patient Support Associate Required No Height 165.1 cm Weight 124.738 kg Body Mass Index (BMI) 45.7 Hearing Ability Normal Visual Assist Glasses Dentition Type Teeth, Natural Present Barriers to Learning None Hx Anesthesia Reactions Yes: Projectile Severe vomiting w/Fentanyl - slow to wake Hx Family Anesthesia Reaction No Hx Malignant Hyperthermia No Hx Blood Transfusions Yes: s/p left hip revision 01/24- total 3 units PRBCs Hx Blood Transfusion Reaction No Anesthesia Review Requested No Outside Sales Advertising Executive No alcohol intake current alcohol intake frequency a few times a month Smoking Status Former smoker Tobacco type cigarettes how long ago did patient quit smoking 12/22/24 Substance Use Type [#R] does not use Pain Present Pain Reported Musculoskeletal Symptoms Abnormal Gait,Difficulty Walking,Joint Pain,Joint Swelling History of Falling (Recent or History of Yes ) Patient is completely paralyzed or No completely immobile Prosthesis or Orthotic Device Wheelchair Mental Status Oriented to own ability Comment Nonweightbearing, currently in a wheelchair Is patient on oxygen? No Does patient have ISSA/SOB No Hx Sleep Apnea Yes CPAP/BIPAP use prescribed and used routinely Will Bring CPAP/BIPAP DOS Yes Currently Taking a Beta Sharad Yes: Atenolol Can You Climb a Flight of Stairs Without No SOB Hx Chest Pain No Hx SOB No Hx Syncope or Dizziness No Anti-Coagulant Therapy No Cardiac Testing No Hx Pacemaker/ICD No Pacemaker Rep Required? No Cardiac Clearance Received No Diet Type At Home Regular,Low Carb Dysphagia No Gastrointestinal Symptoms Diarrhea,Reflux Urinary Catheter Present No Hx Urinary Self Catheterization No Diabetes No Patient No Lactating No Hx Drug Resistant Organism No Presence of External or Internal Medical Yes: Hernia mesh, left hip, Devices PICC-RUE Month and year received flu vaccine 2018 Received a COVID vaccine? Yes Marital Status Lives With spouse,children Current Living Arrangements House Number of Floors (Floors) One Floor Number of Stairs To Enter/Railing? 3 steps Support System Spouse Does the Patient Have Assistance After Yes Surgery Patient Discharge Plan Description Return Home Comment Pt advised a few days length of stay per surgeon Feels Safe in Current Environment Yes Been Physically Hurt or Threatened By a No Person in Current Environment Do you have thoughts of harming yourself None or others? Are you currently considering suicide? No Do you have a plan to hurt yourself or No Plan others? Do You Have Any Spiritual Beliefs That No May Affect Your HC Choices? Do You Have Any Cultural Practices That No May Affect Your HC Choices? Comment Orthodox Who Can We Speak to About Patient's Care Family, friends Identifying Code for Release of Patient Declines to issue Information Health Care Proxy/Next of Kin [place] () Health Care Proxy Emergency Contact Name Minna (sister) Emergency Contact Advance Directives? No Power of Deck Scaler No PAC Instructions Bring CPAP/BIPAP,Do not shave/ clip surgical site,Durable medical equipment,Medications to take/avoid,Nasal antibiotic ,No ETOH/petroleum product on skin DOS,NPO,Post-op transportation,Pre-surgical wash,Sturdy shoes/comfortable clothes,Do not bring valuables and remove jewelry
[2025-04-04] MEDS: diphenhydrAMINE 25 MG TABLET PO (16:43)
--- NOTE | 2025-04-04 16:46 | PT-IP ANOTE ---
Patient declined afternoon Physical Therapy visit. She reports being tired. She just got her pain under control after struggling most of the day. She agrees to resume therapy in the morning. Her goal is to sit up in the recliner tomorrow. She has been up ambulating to the bathroom with nursing today.
[2025-04-04 21:00] VITALS: BP 136/74; PULSE 73; RESP 16; TEMP 36.3; O2SAT 97
[2025-04-04] MEDS: PRAZOSIN 1 MG CAPSULE 2 MG PO (21:16)
[2025-04-05] MEDS: CEFAZOLIN VIAL 3 GM in SODIUM CHLORIDE 0.9% 100 ML IV ×3 (01:40→17:42)
[2025-04-05] MEDS: ACETAMINOPHEN 325 MG TABLET 650 MG PO ×4 (01:41→20:26)
[2025-04-05] MEDS: OXYCODONE IR 5 MG TABLET PO (01:43)
[2025-04-05] MEDS: OXYCODONE IR 10 MG TABLET PO ×4 (06:21→21:53)
[2025-04-05] MEDS: PANTOPRAZOLE DR 20 MG TABLET PO ×2 (06:21→20:28)
[2025-04-05] MEDS: GABAPENTIN 400 MG CAPSULE 800 MG PO ×3 (08:08→20:27)
[2025-04-05] MEDS: ASPIRIN EC 81 MG TABLET PO ×2 (08:09→20:27)
[2025-04-05] MEDS: allopurinoL 100 MG TABLET PO (08:09)
--- NOTE | 2025-04-05 08:19 | CM.DPNOTE ---
DCP Continued: Reviewed EMR and team rounds for pt?s medical status. Per Provider, possible discharge home on Tuesday or Tuesday, 04/06. DCP connected with [facility], it is reported pt is accepted into their services and requested orders for RN be added as well for incision management and vital sign monitoring. DCP amended [id number] orders with RN addition and reuploaded/resent to EMR and home health intake, respectively. Plan: Anticipating dc home with spouse to transport on Tuesday, Tuesday, or when medically cleared. CM Team will continue to follow for coordination of discharge plans. DELMY Powell
--- NOTE | 2025-04-05 08:30 | PM.PNPO.1 ---
Subjective Subjective Interval history: She was able to mobilize out of bed with physical therapy yesterday. She was still having some pain control issues she notes some burning pain which is worse when she mobilizes. She did get some sleep overnight. She denies a history of popping and clicking. Exam Vital Signs (past 8 hours): Oxygen Delivery Method Room Air,CPAP Oxygen Flow Rate 0 Narrative Exam Narrative: Calf soft distally, anticipated swelling in the left thigh, dressing dry and benign, mild pain with gentle range motion Objective Labs 04/04/25 05:47 [facility] Medical History (Updated 03/25/25 @ 09:25 by Rosaura Givens RN) Anesthesia complication Iron deficiency anemia History of COVID-19 Osteoarthritis Pancreatitis Esophageal dilatation History of postoperative complication of surgical procedure History of intraoperative complication of surgical procedure Recurrent major depression resistant to treatment Hypersomnia Obstructive sleep apnea of adult Snoring Finger pain, right Chronic pain of left elbow Chronic right shoulder pain Essential hypertension Generalized headaches (2010) PTSD (post-traumatic stress disorder) (2010) Depression (2010) Anxiety (2010) Fibromyalgia (~2013) Ovarian cyst (1999) Genital warts (1989) Hypertension (2010) Surgical History (Updated 03/25/25 @ 08:46 by Rosaura Givens RN) 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 Mother Cancer Social History marital status: details: to [place] household members: spouse and children lives independently: Yes caregiver/support person: No housing: house pets and animals: Yes education level: college Smoking Status: Former smoker alcohol intake: current substance use type: does not use Assessment & Plan Post-op Postoperative Procedures: Procedures Operation Date: 04/03/25 07:45 Actual Procedure Side Surgeon p Revision, total arthroplasty, hip, both components (left), femur fracture repair Left Renita Monsivais MD Postoperative day: 2 Postoperative status: marginal pain control Postoperative status narrative: She is doing reasonably well postoperatively. She was going to continue to mobilize with therapy today. I have recommended we get a repeat CBC. We are going to try oral Dilaudid for better pain control. She will continue on IV Ancef. Postoperative plan narrative: I anticipate she probably can be discharged to home tomorrow with a long-term plan for oral suppressive antibiotics for at least 6 months. She has been afebrile and her cultures are no growth. We will await final PCR results.
[2025-04-05 08:59] VITALS: BP 116/58; PULSE 87; RESP 18; TEMP 36.5; O2SAT 99
[2025-04-05] MEDS: ESCITALOPRAM 10 MG TABLET 20 MG PO (09:16)
[2025-04-05] MEDS: FERROUS SULFATE 325 MG TABLET PO ×2 (09:16→20:27)
[2025-04-05] MEDS: HYDROMORPHONE 2 MG TABLET PO ×3 (09:16→18:58)
[2025-04-05] MEDS: DOCUSATE 100 MG CAPSULE PO ×2 (09:16→20:27)
[2025-04-05] MEDS: MAGNESIUM HYDROXIDE 30 ML UDC PO (09:38)
[2025-04-05] MEDS: CYANOCOBALAMIN (VITAMIN B-12) 500 MCG TABLET PO (09:39)
[2025-04-05] MEDS: estradioL 1 MG TABLET 2 MG PO (09:39)
--- NOTE | 2025-04-05 11:15 | PT.IPTN ---
Current Diagnoses Infection and inflammatory reaction due to other internal joint prosthesis, subsequent encounter (04/03/25) Presence of left artificial hip joint (04/03/25) Surgery Performed Operation Date: 04/03/25 07:45 Actual Procedures p Revision, total arthroplasty, hip, both components (left), femur fracture repair(Left) - Renita Monsivais MD Physical Therapy Treatment Note M2 PT-IP Current Condition Start: 04/04/25 13:16 Freq: NEEDED Status: Active Protocol: Document 04/04/25 09:40 DLM (Rec: 04/04/25 13:38 DLM Desktop) Physical Therapy Current Condition Current Condition Evaluation Date 04/04/25 Treatment Diagnosis revision left JUAN, posterior approach, impaired gait Onset Date 04/03/25 M3 PT-IP Subjective Start: 04/04/25 13:16 Freq: NEEDED Status: Active Protocol: Document 04/05/25 11:15 AB (Rec: 04/05/25 12:32 AB [id number]) Subjective Physical Therapy Visit Type Type Treatment Note Visit Start Time 11:15 Visit Stop Time 11:35 Number of CUSTOMER SERVICE REP Visits 0 Therapy Pain Assessment Pain When Pain Assessed At Rest Pain Present Pain Present Pain Reported Location Left Hip Intensity 8 Scale Used Numeric (0 - 10) Pain Management Techniques Distraction,Modification of Treatment,Re-positioning, Timing of Activity with Medications M4 PT-IP Mobility and Gait Start: 04/04/25 13:16 Freq: NEEDED Status: Active Protocol: Document 04/05/25 11:15 AB (Rec: 04/05/25 12:32 AB [id number]) PT-Bed Mobility Assessment Supine to Sit Supine to Sit Standby Assistance PT-Transfer Assessment Sit to and From Stand Sit to and from Stand Contact Guard Assistance,1 Person Assistance,Use of Upper Extremities Equipment Transfer Assistive Device Gait Belt,Front Wheeled Walker Orthotic/Prosthetic Devices or Brace: No Transfers Transfer Destination Toilet Transfer Technique ambulated Transfer Ability Level of Assist Contact Guard Assistance,1 Person Assistance,Use of Upper Extremities Comments Mobility Comments checked on pt x 3 for PT. pt initially c/o increase L hip pain and wants medication to work first. on 2nd attempt, wants to have a nap. agreed to get up after her nap. checked back on pt and agreed to do PT. requested to use the toilet. supine to sit SBA. sit to stand CGA and ambulated to the toilet using FWW CGA ~ 15 ft. able to complete toileting needs SBA. sit to stand from the toilet using grab bar CGA and ambulated towards the sink using FWW CGA . able to maintain standing CGA while completing handwashing. pt c/o feeling dizzy. ambulated to the chair using FWW CGA. BP checked: 152/61. pt stated that she is dizzy due to the pain. positioned pt on the chair. call light and table placed within reach. Gait Assessment Gait Gait Assistance Required: Contact Guard Assist Distance (Feet) 15 Able to Maintain Weight Bearing Status Yes During Gait Assistive Devices Assistive Device Gait Belt,Front Wheeled Walker Orthotic/Prosthetic Devices or Brace: No Gait Deviations General Gait Pattern Antalgic,Decreased Stride Length,Decreased Feet Clearance Factors Limiting Gait Function Factors Limiting Gait Function Decreased Activity Tolerance, Decreased Strength,Difficulty Following Directions,Limited Range of Motion,Pain,Poor Balance,Poor Safety Awareness M5 PT-IP Objective Assessments Start: 04/04/25 13:16 Freq: NEEDED Status: Active Protocol: Document 04/04/25 09:40 DLM (Rec: 04/04/25 13:38 DLM Desktop) Orientation Orientation/Cognition Level of Alertness Alert Orientation Name,Age,Birthday,Month,Date, Year,Day of Week,Place, Situation Language Function Ability No Deficits Noted Safety Awareness Understands Safety Issues Memory Description No Deficits Noted Gross Range of Motion Upper Extremity ROM Assessment Within Functional Limits Lower Extremity ROM Assessment Left Impaired Impairments left hip precautions with pain post-op Strength Upper Extremity Strength Assessment Within Functional Limits Lower Extremity Strength Assessment Left Impaired Hip needs assist to move LE in bed , standing hip flex 2+/5 Knee 3+/5 with pain Ankle DF 5/5 Coordination Assessment Gross Coordination Gross Coordination WNL Sensation Assessment Sensation Gross Sensation WNL Muscle Tone Muscle Tone WNL Yes M6 PT-IP Treatment Start: 04/04/25 13:16 Freq: NEEDED Status: Active Protocol: Document 04/05/25 11:15 AB (Rec: 04/05/25 12:32 AB [id number]) Physical Therapy Treatment Education Education Provided Precautions,Safety M7 PT-IP Assessment and Plan Start: 04/04/25 13:16 Freq: NEEDED Status: Active Protocol: Document 04/05/25 11:15 AB (Rec: 04/05/25 12:32 AB [id number]) PT Summary Assessment and Plan Potential Rehabilitation Potential Fair Summary Impairments Pain,ROM,Strength,Balance, Coordination,Sensation,Tone, Cognition,Bed Mobility, Transfers,Gait,Activity Tolerance Progress Towards Goals Slow Progress due to Pain Assessment Summary pt requiring CGA with mobility using FWW but limited activity due to c/o increase L hip pain and also c/o dizziness during standing. pt plans to go home and will have her family to assist her. pt will benefit from HHPT. Goals Bed Mobility Goal Independent Transfer Goal Independent,Front Wheeled Walker Gait Goal Standby Assistance,Front Wheel Walker Gait Distance 100 feet Other Goals Tolerate standing and activity without light-headedness Days to Meet Goals 5 Frequency of Treatment Frequency Of Treatment Twice a Day Treatment Plan Physical Therapy Treatment Plan Bed Mobility Training,Transfer Training,Gait Training, Therapeutic Exercise,Balance Retraining,Post Op Education, Discharge Planning,Hot or Cold Pack,Neuromuscular Re-ed Precautions Posterior Hip Precautions No Hip Flexion > 90 degrees,No Hip Internal Rotation,No Hip Adduction Weight Bearing Status Weight Bearing Status Weight Bear as Tolerated Allowed Weight Bearing Amount (enter % left JUAN with FWW or #) (%) Recommendations To Nursing Amount of Assist Needed 1 Person Assist Discharge Recommendations PT Discharge Recommendations Home with Assistance,Home Health Transportation Needs at Discharge Private Vehicle - PT assist 1
[2025-04-05 11:22] LABS: Add Manual Diff / Slide Review NO; Basophils Absolute Auto 100 /uL (0-100); Eosinophils Absolute Auto 100 /uL (0-450); Eosinophils Percent Auto 2.3 % (2-4); Hematocrit 23.4 % (36-46); Hemoglobin 8.1 g/dL (12.0-16.0); Lymphocytes Absolute Auto 1400 /uL (1100-4500); Lymphocytes Percent Auto 22.7 % (25-40); Mean Corpuscular HGB Conc 34.6 % (30-36); Mean Corpuscular Hemoglobin 30.2 PG (26-34); Mean Corpuscular Volume 87.2 fL (80-100); Monocytes Absolute Auto 400 /uL (0-900); Monocytes Percent Auto 7.1 % (3-14); Neutrophils Absolute Auto 4200 /uL (1500-7000); Neutrophils Percent Auto 66.9 % (50-75); Platelet Count 200 X10^3/uL (150-400); Red Blood Cell Count 2.68 X10^6/uL (4.0-5.2); Red Cell Distribution Width 14.5 % (11.6-14.8); White Blood Cell Count 6.2 X10^3/uL (4.5-11.0)
--- NOTE | 2025-04-05 14:02 | OT.IPNOTE ---
Pt just getting back to bed with nursing and states just wanting to rest. Pt still having 5/10 pain at rest.
--- NOTE | 2025-04-05 16:23 | PT-IP ANOTE ---
checked on pt this afternoon but refused PT. pt stated that she just had a break down due to intense hip pain and does not want to do PT this afternoon. informed pt that PT will decrease tx frequency to once a day and encouraged pt to move with nursing staff as much as possible. pt understood.
[2025-04-05] MEDS: hydrOXYzine HCL 25 MG TABLET PO (18:58)
[2025-04-05 20:00] VITALS: BP 138/66; PULSE 74; RESP 19; TEMP 37; O2SAT 98
[2025-04-05] MEDS: PRAZOSIN 1 MG CAPSULE 2 MG PO (20:27)
[2025-04-05] MEDS: CYCLOBENZAPRINE 10 MG TABLET PO (20:29)
[2025-04-05] MEDS: IBUPROFEN 400 MG TABLET 800 MG PO (21:53)
[2025-04-06] MEDS: OXYCODONE IR 10 MG TABLET PO ×5 (01:01→14:29)
[2025-04-06] MEDS: hydrOXYzine HCL 25 MG TABLET PO (01:01)
[2025-04-06] MEDS: CEFAZOLIN VIAL 3 GM in SODIUM CHLORIDE 0.9% 100 ML IV ×2 (01:06→08:57)
[2025-04-06] MEDS: ACETAMINOPHEN 325 MG TABLET 650 MG PO ×2 (02:58→07:49)
[2025-04-06] MEDS: HYDROMORPHONE 2 MG TABLET PO (03:12)
[2025-04-06] MEDS: CYCLOBENZAPRINE 10 MG TABLET PO (07:05)
[2025-04-06] MEDS: PANTOPRAZOLE DR 20 MG TABLET PO (07:49)
[2025-04-06] MEDS: CYANOCOBALAMIN (VITAMIN B-12) 500 MCG TABLET PO (08:57)
[2025-04-06] MEDS: ESCITALOPRAM 10 MG TABLET 20 MG PO (08:57)
[2025-04-06] MEDS: estradioL 1 MG TABLET 2 MG PO (08:57)
[2025-04-06] MEDS: allopurinoL 100 MG TABLET PO (08:57)
[2025-04-06] MEDS: ASPIRIN EC 81 MG TABLET PO (08:57)
[2025-04-06] MEDS: GABAPENTIN 400 MG CAPSULE 800 MG PO (08:58)
[2025-04-06] MEDS: FERROUS SULFATE 325 MG TABLET PO (08:58)
[2025-04-06] MEDS: DOCUSATE 100 MG CAPSULE PO (08:58)
[2025-04-06] MEDS: hydroCHLOROthiazide 25 MG TABLET PO (08:59)
[2025-04-06] MEDS: atenoloL 25 MG TABLET 50 MG PO (09:02)
[2025-04-06 09:13] VITALS: BP 109/63; PULSE 90; RESP 16; TEMP 36.5; O2SAT 96
--- NOTE | 2025-04-06 10:25 | PT.IPTN ---
Current Diagnoses Infection and inflammatory reaction due to other internal joint prosthesis, subsequent encounter (04/03/25) Presence of left artificial hip joint (04/03/25) Surgery Performed Operation Date: 04/03/25 07:45 Actual Procedures p Revision, total arthroplasty, hip, both components (left), femur fracture repair(Left) - Renita Monsivais MD Physical Therapy Treatment Note M2 PT-IP Current Condition Start: 04/04/25 13:16 Freq: NEEDED Status: Active Protocol: Document 04/04/25 09:40 DLM (Rec: 04/04/25 13:38 DLM Desktop) Physical Therapy Current Condition Current Condition Evaluation Date 04/04/25 Treatment Diagnosis revision left JUAN, posterior approach, impaired gait Onset Date 04/03/25 M3 PT-IP Subjective Start: 04/04/25 13:16 Freq: NEEDED Status: Active Protocol: Document 04/06/25 10:25 AB (Rec: 04/06/25 12:53 AB Desktop) Subjective Physical Therapy Visit Type Type Treatment Note Visit Start Time 10:25 Visit Stop Time 11:05 Number of NEON TUBE PUMPER Visits 0 Physical Therapy Visit Comments Patient Comments agreeable to do PT Therapy Pain Assessment Pain When Pain Assessed At Rest Pain Present Pain Present Pain Reported Location Left Hip Intensity 4 Scale Used Numeric (0 - 10) Pain Management Techniques Distraction,Modification of Treatment,Re-positioning, Timing of Activity with Medications M4 PT-IP Mobility and Gait Start: 04/04/25 13:16 Freq: NEEDED Status: Active Protocol: Document 04/06/25 10:25 AB (Rec: 04/06/25 12:53 AB Desktop) PT-Bed Mobility Assessment Supine to Sit Supine to Sit Independent PT-Transfer Assessment Sit to and From Stand Sit to and from Stand Standby Assistance,1 Person Assistance Equipment Transfer Assistive Device Gait Belt,Front Wheeled Walker Orthotic/Prosthetic Devices or Brace: No Transfers Transfer Destination Toilet Transfer Technique ambulated Transfer Ability Level of Assist Standby Assistance,1 Person Assistance,Use of Upper Extremities Comments Mobility Comments pt in bed and agreeable to do PT. BP: 120/66. pt completed supine to sit SBA. sit to stand SBA and ambulated in room ~ 30 ft using FWW SBA. requested to use the toilet and ambulated to the toilet SBA using fWW. able to do toileting needs without assistance from PT. sit to stand from the toilet SBA using grab bar to assist and ambulated towards the sink using FWW SBA. pt ambulated more in room ~ 20 ft using FWW SBA. c/o slight lightheadedness and needed to sit and rest. BP checked: 108 /53. positioned pt on the chair. call light and table placed within reach. informed nurse regarding BP and lightheadedness. Gait Assessment Gait Gait Assistance Required: Standby Assistance,1 Person Assist Distance (Feet) 30 Able to Maintain Weight Bearing Status Yes During Gait Assistive Devices Assistive Device Gait Belt,Front Wheeled Walker Orthotic/Prosthetic Devices or Brace: No Gait Deviations General Gait Pattern Antalgic,Decreased Stride Length,Decreased Feet Clearance Factors Limiting Gait Function Factors Limiting Gait Function Decreased Activity Tolerance, Decreased Strength,Limited Range of Motion,Pain,Poor Balance,Poor Safety Awareness M5 PT-IP Objective Assessments Start: 04/04/25 13:16 Freq: NEEDED Status: Active Protocol: Document 04/04/25 09:40 DLM (Rec: 04/04/25 13:38 DLM Desktop) Orientation Orientation/Cognition Level of Alertness Alert Orientation Name,Age,Birthday,Month,Date, Year,Day of Week,Place, Situation Language Function Ability No Deficits Noted Safety Awareness Understands Safety Issues Memory Description No Deficits Noted Gross Range of Motion Upper Extremity ROM Assessment Within Functional Limits Lower Extremity ROM Assessment Left Impaired Impairments left hip precautions with pain post-op Strength Upper Extremity Strength Assessment Within Functional Limits Lower Extremity Strength Assessment Left Impaired Hip needs assist to move LE in bed , standing hip flex 2+/5 Knee 3+/5 with pain Ankle DF 5/5 Coordination Assessment Gross Coordination Gross Coordination WNL Sensation Assessment Sensation Gross Sensation WNL Muscle Tone Muscle Tone WNL Yes M6 PT-IP Treatment Start: 04/04/25 13:16 Freq: NEEDED Status: Active Protocol: Document 04/06/25 10:25 AB (Rec: 04/06/25 12:53 AB Desktop) Physical Therapy Treatment Education Education Provided Precautions,Safety M7 PT-IP Assessment and Plan Start: 04/04/25 13:16 Freq: NEEDED Status: Active Protocol: Document 04/06/25 10:25 AB (Rec: 04/06/25 12:53 AB Desktop) PT Summary Assessment and Plan Potential Rehabilitation Potential Fair Summary Impairments Pain,ROM,Strength,Balance, Coordination,Sensation,Tone, Cognition,Bed Mobility, Transfers,Gait,Activity Tolerance Progress Towards Goals Slow Progress due to Activity Tolerance Assessment Summary pt improving with mobility and needing SBA using FWW. pt's pain is better today but c/o lightheadedness after ambulation with decrease in BP from 120/66 to 108/53. pt plans to go home and spouse to assist her. Goals Bed Mobility Goal Independent Transfer Goal Independent,Front Wheeled Walker Gait Goal Standby Assistance,Front Wheel Walker Gait Distance 100 feet Other Goals Tolerate standing and activity without light-headedness Days to Meet Goals 5 Frequency of Treatment Frequency Of Treatment Once a Day Treatment Plan Physical Therapy Treatment Plan Bed Mobility Training,Transfer Training,Gait Training, Therapeutic Exercise,Balance Retraining,Post Op Education, Discharge Planning,Hot or Cold Pack,Neuromuscular Re-ed Precautions Posterior Hip Precautions No Hip Flexion > 90 degrees,No Hip Internal Rotation,No Hip Adduction Weight Bearing Status Weight Bearing Status Weight Bear as Tolerated Allowed Weight Bearing Amount (enter % left JUAN with FWW or #) (%) Recommendations To Nursing Amount of Assist Needed 1 Person Assist Discharge Recommendations PT Discharge Recommendations Home with Assistance,Home Health Transportation Needs at Discharge Private Vehicle - PT assist 1
--- NOTE | 2025-04-06 12:37 | P.DS_ITS ---
History of Present Illness History of Present Illness Date Patient Seen: 04/06/25 Time Patient Seen: 12:38 Chief complaint: Left Total Hip Arthroplasty Revision Narrative: This is a 59-year-old female was admitted for the 2nd stage exchange arthroplasty after having had a prior placement of an antibiotic spacer for periprosthetic joint infection. She was treated previously with 6 weeks of IV antibiotics and then had cultures which were no growth off of antibiotics. She is now brought to the operating room for removal of antibiotic spacer fixation of her femur fracture and revision total hip arthroplasty. Discharge Providers Provider Date of admission: 04/03/25 06:14 Discharge Date: 04/06/25 Primary care physician: Juanito Johnson MD Consults: 04/03/25 06:00 Consult to Anesthesiology Routine Comment: Consulting Provider: Anesthesiologist Reason for consultation: Regional block for post operative pain control Has provider been notified: No 04/03/25 14:00 Consult to Discharge Planning Routine Comment: Consult to Occupational Therapy Evaluate & Treat Comment: Physician Instructions: Evaluate and treat Consult to Physical Therapy Evaluate & Treat Comment: Physician Instructions: post op JUAN protocol 04/04/25 14:06 Consult to Physical Therapy Evaluate & Treat Comment: PT Physician Instructions: Home Health Services Discharge provider: Renita Monsivais MD Summary Hospital Course Discharge Diagnosis: Left total hip arthroplasty revision, open reduction internal fixation of the femur fracture, removal of antibiotic spacer placed for periprosthetic joint infection, morbid obesity, Hospital Course: Patient was brought to the operating room she underwent left hip surgery for removal of her antibiotic spacer and revision left total hip arthroplasty with open reduction internal fixation of her left femur fracture. She tolerated the procedure well. Multiple cultures and PCR were obtained at the time of surgery. They were all no growth. Intraoperative findings did not suggest persistent infection. She was treated with IV antibiotics postoperatively for several days. She was carefully mobilized with physical therapy. She did have some postoperative blood loss anemia with relatively my mild to moderate symptoms. She was stable to the extent that she did not require blood transfusion. She did well with physical therapy and was felt to be stable for discharge to home. Status at Discharge Cognitive/behavioral status at discharge: oriented Functional status at discharge: uses cane/walker Overall status at discharge: patient is progressing back to baseline Time Spent with Patient Time spent: Greater than 30 minutes Exam Vital Signs (past 8 hours): - 04/06/25 09:13 Temperature 97.7 F Pulse Rate 90 Respiratory Rate 16 Blood Pressure 109/63 Pulse Oximetry 96 Oxygen Flow Rate 0 Oxygen Delivery Method Room Air,CPAP Oxygen Flow Rate 0 Narrative Exam Narrative: Resting comfortably in bed, mild pain with range of motion, dressing completely dry neel was working, calf is soft distally, she is neurologically intact distally Objective Labs 04/05/25 11:15 [facility] Medical History Anesthesia complication Iron deficiency anemia History of COVID-19 Osteoarthritis Pancreatitis Esophageal dilatation History of postoperative complication of surgical procedure History of intraoperative complication of surgical procedure Recurrent major depression resistant to treatment Hypersomnia Obstructive sleep apnea of adult Snoring Finger pain, right Chronic pain of left elbow Chronic right shoulder pain Essential hypertension Generalized headaches (2010) PTSD (post-traumatic stress disorder) (2010) Depression (2010) Anxiety (2010) Fibromyalgia (~2013) Ovarian cyst (1999) Genital warts (1989) Hypertension (2010) Surgical History 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 Mother Cancer Social History marital status: details: jeremiah Bhagat household members: spouse and children lives independently: Yes caregiver/support person: No housing: house pets and animals: Yes education level: college Smoking Status: Former smoker alcohol intake: current substance use type: does not use Discharge Assessment & Plan Assessment and Plan Assessment: Steadily improving status post revision left total hip arthroplasty. Plan of Treatment: She is doing reasonably well in appears stable for discharge to home. The plan is to keep her on oral antibiotics for likely 1 year postoperatively or possible lifetime suppression. [facility] She is going to mobilize with physical therapy. Prescriptions are going to be sent for postoperative pain medications and muscle relaxants. Discharge Plan Discharge Plan Patient Disposition: Home Discharge orders & Medications Prescriptions: New polyethylene glycol 3350 17 gram Powder In Packet 17 g PO DAILY PRN (Reason: Constipation) Qty: 14 0RF hydromorphone 2 mg Tablet 2 mg PO Q3H PRN (Reason: Pain, Severe (7-10)) Qty: 30 0RF hydroxyzine HCl 25 mg Tablet 25 mg PO Q6H PRN (Reason: Muscle Spasm) Qty: 60 0RF oxycodone 10 mg Tablet 10 mg PO Q3H PRN (Reason: Pain, Moderate (4-6)) Qty: 60 0RF cefuroxime axetil 500 mg tablet 500 mg PO Q12H Qty: 30 6RF Continued omeprazole 20 mg capsule,delayed release(DR/EC) 20 mg PO BID estradiol 2 mg tablet 2 mg PO DAILY prazosin 2 mg capsule 2 mg PO BEDTIME escitalopram oxalate 20 mg tablet 20 mg PO DAILY Qty: 90 3RF allopurinol 100 mg tablet 100 mg PO DAILY hydrochlorothiazide 25 mg tablet 25 mg PO QDAY Qty: 90 0RF diclofenac sodium 100 mg Tablet Extended Release 24 Hr 100 mg PO DAILY gabapentin 800 mg Tablet 800 mg PO TID atenolol 50 mg tablet 50 mg PO DAILY ferrous sulfate [FeroSul] 325 mg (65 mg iron) Tablet 325 mg PO BID acetaminophen 325 mg tablet 650 mg PO TID cyanocobalamin (vitamin B-12) 500 mcg Tablet,Chewable 500 mcg PO DAILY aspirin 81 mg Tablet,Delayed Release (Dr/Ec) 81 mg PO BID Qty: 90 0RF cyclobenzaprine 10 mg Tablet 10 mg PO Q8HR PRN (Reason: Spasms) Qty: 10 0RF ondansetron 4 mg Tablet,Disintegrating 4 mg PO Q4HR PRN (Reason: Nausea) Qty: 10 0RF quetiapine 25 mg tablet 25 mg PO BEDTIME PRN (Reason: Sleep) Qty: 30 0RF oxycodone 5 mg tablet 5 mg PO Q4H PRN (Reason: pain) Qty: 30 0RF (DME) Respironics Dreamstation CPAP Qty: 1 Dose Instruction: As directed Patient Comments: Pressure: 10-16 cmH2O DME: Protection Rx Instructions: As directed Follow up/Referrals: Juanito Johnson MD [Primary Care Provider] - Renita Monsivais MD [Physician] - 04/12/25 3:30 pm (Appt:04/12 @ 3:[address] Monsivais @ [facility] ) Diet/Activity/Treatments Diet: Diet as Tolerated Activity: Ambulate multiple times a day. Be careful with high hip flexion. Full weight-bearing on the left leg Cold/Heat Therapy: Use ice multiple times a day. Skin/Wound/Dressing Care Report to your healthcare provider any signs of infection, such as:: chills, fever, night sweats, increased pain, unusual drainage and unusual redness Dressing: Leave dressing on. Okay to shower, disconnect neel during shower and then restart Visit Report/Discharge Packet Instructions: DI for Hip Replacement, DI for Prescription Opioid Use Stand Alone Forms: Patient Portal/API, Surgery Discharge Discharge Data Primary Care Provider: Juanito Johnson
--- NOTE | 2025-04-06 14:37 | PC.NURSE ---
D/c instructions reviewed with pt at bedside. Discussed use of OTC laxatives and stool softeners to help with constipation. Discussed no driving while taking narcotics. PICC and PIV removed. Pt confirmed she had all of her belongings. Pt exited via w/c with [employer] to private vehicle.
== END 2025-04-06 14:39 | disposition home health service (06) | DRG 467 ==
PROVIDERS: Anesthesiology; Admitting Provider Orthopaedic Surgery; PCP Family Medicine; Referring Provider Orthopaedic Surgery; Visit Provider Orthopaedic Surgery
PROC: 0SP Lower Joints, Removal (ICD-10-PCS; principal; 2025-04-03 07:45)
DX: T84.52XA Infection and inflammatory reaction due to internal left hip prosthesis, initial encounter (principal); M80.052A Age-related osteoporosis with current pathological fracture, left femur, initial encounter for fracture; Z68.42 Body mass index [BMI] 45.0-49.9, adult; E66.01 Morbid (severe) obesity due to excess calories; F17.200 Nicotine dependence, unspecified, uncomplicated; K21.9 Gastro-esophageal reflux disease without esophagitis; I10 Essential (primary) hypertension; F32.A Depression, unspecified; Y79.2 Prosthetic and other implants, materials and accessory orthopedic devices associated with adverse incidents; F41.9 Anxiety disorder, unspecified; G47.33 Obstructive sleep apnea (adult) (pediatric)
CPT/HCPCS: 73502; 73503; 76000; 82962; 85014; 85018; 85025; 85651; 86140; 86850; 86900; 86901; 87070; 87075; 87176; 87205; 87801; 97162; 97165; 97530; C1776; A9270; C1713; J0171; J0666; J0690; J1100; J1171; J2250; J2274; J2405; J2704